=== PATIENT | female | born 1960 | race Caucasian/White ===

== ENCOUNTER 2023-04-08 15:14 | Outpatient (REF) | payer MEDICARE, MEDICAID, SELFPAY ==
[2023-04-08 16:13] LABS: SARS-CoV-2 Ag POSITIVE (NEGATIVE)
== END 2023-04-08 15:15 | disposition home or self-care (01) ==
LOC: LAB 15:14
PROVIDERS: PCP Family Medicine; Visit Provider Family Medicine
DX: R05.1 Acute cough (principal); J02.9 Acute pharyngitis, unspecified; J98.8 Other specified respiratory disorders
CPT/HCPCS: 87811

== ENCOUNTER 2023-09-10 13:17 | Inpatient (IN) | payer MEDICARE, MEDICAID, SELFPAY ==
[2023-09-10] VITALS (35 sets, daily range): BP systolic 99–145; BP diastolic 65–96; PULSE 94–126; TEMP 34.6–36.8; O2SAT 77–98; BMI 27.4
--- NOTE | 2023-09-10 13:28 | CT_ITS ---
The [address] [address] Patient Name: JENNIFER BURGOS MRN: [id number] date: 1960 Sex: F Assigned Patient Location: ER Current Patient Location: Accession/Order Number: [id number] Exam Date: 09/10/2023 14:44 Report Date: 09/10/2023 15:18 At the request of: FAY DUVAL Procedure: CT cervical spine wo con EXAM: CT cervical spine wo con CLINICAL INDICATION: fall COMPARISON: Cervical spine radiographs 07/22/2013. TECHNIQUE: Axial CT images of the cervical spine were obtained without intravenous contrast. Coronal and sagittal reformatted images were also reviewed. Dose reduction techniques were achieved by using automated exposure control and/or adjustment of mA and/or kV according to patient size and/or use of iterative reconstruction technique. FINDINGS: Osseous Mineralization: Mild osseous demineralization limits evaluation of fine osseous detail. Trauma: No fracture, traumatic malalignment, facet dislocation, or discrete epidural hemorrhage. Alignment: Normal craniocervical and cervicothoracic junctions. Straightening of the physiologic cervical lordosis likely relates at least in part to patient positioning. Vertebral Body Heights: Maintained. Spondylotic Changes: Multilevel spondylotic changes include varying degrees of intervertebral disc height loss, osteophytic ridging, endplate sclerosis, and facet/uncovertebral joint hypertrophy. Soft Tissues: Normal. Other: Clear visualized lung apices. Airway is patent. CT/CT cervical spine wo con IMPRESSION: 1. No cervical spine fracture or traumatic malalignment. 2. Multilevel spondylotic changes. Electronically authenticated by: ELVA YATES Date: 09/10/2023 15:18
--- NOTE | 2023-09-10 13:28 | CT_ITS ---
The [address] [address] Patient Name: JENNIFER BURGOS MRN: [id number] date: 1960 Sex: F Assigned Patient Location: ER Current Patient Location: ER Accession/Order Number: [id number] Exam Date: 09/10/2023 14:44 Report Date: 09/10/2023 15:18 At the request of: FAY DUVAL Procedure: CT head/brain wo con CT head/brain wo con, 09/10/2023 2:44 PM EDT INDICATION: Fall, weakness COMPARISON: There is no appropriate prior study for comparison. TECHNIQUE: Axial CT images of the brain from skull base to vertex, including portions of the face and sinuses, were obtained without contrast . Multiplanar reformatted images were generated and reviewed as needed. Dose reduction techniques were achieved by using automated exposure control and/or adjustment of mA and/or kV according to patient size and/or use of iterative reconstruction technique. FINDINGS: The cerebral sulci as well as ventricular system are appropriate for age. There is no intracranial mass, mass effect, midline shift, intra or extra-axial fluid collection or hemorrhage. Periventricular and centrum semiovale hypodensities are most likely consistent with microvascular ischemic changes. The visualized portions of orbits, mastoid air cells as well as paranasal sinuses are unremarkable. There is no suspicious osteolytic or osteoblastic lesion. CT/CT head/brain wo con IMPRESSION: No acute intracranial process is noted. Electronically authenticated by: LUANN MENDOZA Date: 09/10/2023 15:18
--- NOTE | 2023-09-10 13:28 | CT_ITS ---
[address] [address] Patient Name: JENNIFER BURGOS MRN: [id number] date: 1960 Sex: F Assigned Patient Location: ER Current Patient Location: ED.MAIN Accession/Order Number: [id number] Exam Date: 09/10/2023 14:44 Report Date: 09/10/2023 15:45 At the request of: FAY DUVAL Procedure: CT pelvis wo con EXAMINATION: CT pelvis wo con HISTORY: fall COMPARISON: No relevant comparison available. TECHNIQUE: Multi-planar CT images were created without IV contrast. Dose reduction techniques were achieved by using automated exposure control and/or adjustment of mA and/or kV according to patient size and/or use of iterative reconstruction technique. FINDINGS: BONES: No acute fracture or dislocation. Mild bilateral hip osteoarthropathy. Mild to moderate lumbar spine spondylosis SOFT TISSUES: Negative. No visible soft tissue swelling. EFFUSION: None visible. Bowel/mesentery: Moderate colonic diverticulosis without evidence of acute diverticulitis. Nonobstructive bowel gas pattern Bladder: Moderately distended Other: Hysterectomy. Moderate calcific atherosclerosis CT/CT pelvis wo con IMPRESSION: No acute fracture Electronically authenticated by: NINA ADAMS Date: 09/10/2023 15:45
--- NOTE | 2023-09-10 13:28 | ECG_ITS ---
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
--- NOTE | 2023-09-10 13:28 | XR_ITS ---
The [address] [address] Patient Name: JENNIFER BURGOS MRN: [id number] date: 1960 Sex: F Assigned Patient Location: ED.MAIN Current Patient Location: ER Accession/Order Number: [id number] Exam Date: 09/10/2023 14:44 Report Date: 09/10/2023 15:04 At the request of: FAY DUVAL Procedure: XR chest 1V EXAMINATION: XR chest 1V HISTORY: weakness COMPARISON: No relevant comparison available. TECHNIQUE: ap port FINDINGS: LUNGS: No significant pulmonary parenchymal abnormalities. VASCULATURE: No increased pulmonary vasculature. PLEURA: No pneumothorax, effusion, or pleural thickening. CARDIAC: No cardiomegaly or cardiac silhouette abnormality. MEDIASTINUM: No visible mass or adenopathy. BONES: No fracture or visible bone lesion. OTHER: Negative. XR/XR chest 1V IMPRESSION: No acute disease. Electronically authenticated by: NINA ADAMS Date: 09/10/2023 15:04
--- NOTE | 2023-09-10 13:32 | ED_ITS ---
HPI HPI - General Adult General Chief complaint: Fall Stated complaint: HIP PAIN Time Seen by Provider: 09/10/23 13:18 Source: patient Mode of arrival: ambulance History of Present Illness HPI narrative: Patient is a 63-year-old female with a history of seizure disorder who presents to the emergency department by ambulance from her home where she lives alone in [place]. Patient's daughter called 911 to bring her to the hospital today when she was found down on the bathroom floor. She has been laying there for approximately 17 hours. She reports pain in her hips and is noted to have abrasions to the knees and feet where it appears she may have tried to crawl. Patient is alert and oriented to person and place. She is disoriented to time and repeats herself multiple times during the interview. She is confused. She is aware of her primary care provider and her neurologist, she does not know her home medications but does not think she takes a blood thinner. She denies any recent illness. Related Data Home Medications ?Medication ?Instructions ?Recorded ?Confirmed alprazolam 1 mg tablet 1 mg PO BID 09/10/23 09/10/23 amitriptyline 150 mg tablet 150 mg PO DAILY 09/10/23 09/10/23 baclofen 20 mg tablet 20 mg PO TID 09/10/23 09/10/23 dapagliflozin propanediol 10 mg 10 mg PO DAILY 09/10/23 09/10/23 tablet estradiol 1 mg/gram (0.1 %) 1 mg transdermal DAILY 09/10/23 09/10/23 transdermal gel packet glipizide 10 mg tablet 10 mg PO BID 09/10/23 09/10/23 losartan 100 mg tablet 100 mg PO DAILY 09/10/23 09/10/23 metformin 1,000 mg tablet 1,000 mg PO BID 09/10/23 09/10/23 metoprolol succinate 50 mg 50 mg PO BID 09/10/23 09/10/23 tablet,extended release 24 hr nabumetone 500 mg tablet 500 mg PO BID 09/10/23 09/10/23 rosuvastatin 10 mg tablet 10 mg PO DAILY 09/10/23 09/10/23 spironolactone 25 mg tablet 25 mg PO BID 09/10/23 09/10/23 tizanidine 4 mg tablet 4 mg PO TID PRN muscle spasticity 09/10/23 09/10/23 topiramate 100 mg tablet (Topamax) 100 mg PO BID 09/10/23 09/10/23 Allergies Allergy/AdvReac Type Severity Reaction Status Date / Time adhesive tape Allergy Severe Verified 09/10/23 16:25 aspirin Allergy Severe Verified 09/10/23 16:25 carbamazepine [From Tegretol] Allergy Severe Verified 09/10/23 16:27 diphenhydramine Allergy Severe Verified 09/10/23 16:25 [From Benadryl] ibuprofen Allergy Severe Verified 09/10/23 16:25 lamotrigine [From Lamictal] Allergy Severe Verified 09/10/23 16:25 latex Allergy Severe Verified 09/10/23 16:27 levetiracetam [From Keppra] Allergy Severe Verified 09/10/23 16:25 Penicillins Allergy Severe Verified 09/10/23 16:27 Sulfa (Sulfonamide Allergy Severe Verified 09/10/23 16:27 Antibiotics) Opioid HPI Opioid Management Most Recent Opioid Data: Last Pain Scale 6 09/10/23 13:58 Ur Phencyclidine Scrn Negative (NEGATIVE) 09/10/23 15:50 Review of Systems ROS Constitutional Denies: fever or chills Ears, nose, mouth, and throat Denies: throat pain or nasal congestion Cardiovascular Denies: chest pain Respiratory Denies: shortness of breath or cough Gastrointestinal Denies: nausea or vomiting Musculoskeletal Reports: extremity pain and joint pain; Denies: back pain or neck pain Integumentary/Breast Denies: rash Neurological Denies: headache Hematologic/Lymphatic Denies: easy bruising or easy bleeding Exam Narrative Exam Narrative: Gen.: Awake, alert, in no distress Head: Normocephalic, atraumatic, No evidence of head injury ENT: Moist mucous membranes, Cervical spine nontender Respiratory: No respiratory distress, lungs clear bilaterally Cardio: Regular rate and rhythm Gastrointestinal: Abdomen is soft, nondistended and nontender to palpation Extremities: Extremities are cold to the touch, limited hip flexion bilaterally with pelvis stable. Bilateral hip tenderness to palpation with no internal or external rotation or shortening. Abrasions with no swelling or bruising noted to the bilateral knees as well as the dorsums of the feet. No bony tenderness of the knees or feet. No bony tenderness of the bilateral upper extremities with 2+ radial pulses bilaterally. Psych: Normal mood and affect Neuro: No focal neuro deficit Skin: Warm, dry, intact Constitutional Vital Signs, click to edit/add: Last Vital Signs Temp 97.9 F 09/10/23 16:47 Pulse 111 H 09/10/23 16:20 Resp 22 H 09/10/23 16:20 BP 121/85 09/10/23 16:40 Pulse Ox 96 09/10/23 16:20 O2 Del Method Room Air 09/10/23 13:22 Course Vital Signs Vital signs: Vital Signs Temperature 94.3 F L 09/10/23 13:22 Pulse Rate 96 H 09/10/23 13:22 Respiratory Rate 18 09/10/23 13:22 Blood Pressure 124/65 09/10/23 13:22 Pulse Oximetry 96 09/10/23 13:22 Oxygen Delivery Method Room Air 09/10/23 13:22 Temperature 97.9 F 09/10/23 16:47 Pulse Rate 111 H 09/10/23 16:20 Respiratory Rate 22 H 09/10/23 16:20 Blood Pressure 121/85 09/10/23 16:40 Pulse Oximetry 96 09/10/23 16:20 Oxygen Delivery Method Room Air 09/10/23 13:22 Medical Decision Making MDM Narrative Medical decision making narrative: Patient noted to be hypothermic on arrival to the ER with a rectal temperature of 94.3. She was given warm IV fluids, 2 L of normal saline with a bear hugger applied. Her temperature did improve in the ER and vital signs are otherwise stable. CT of the head, CT of the C-spine and CT of the pelvis are unremarkable and chest x-ray shows no evidence of acute cardiopulmonary changes. She has an unremarkable EKG with lab studies showing rhabdomyolysis, globally elevated LFTs. Unknown as to why the patient was unable to get up off the floor for over 12 hours and was found down by her daughter. Possible seizure activity versus polypharmacy as she is prescribed multiple skeletal muscle relaxants and neuro meds with Xanax. Patient had improvement of her mental status in the ER as her temperature improved, she is awake and alert on reevaluation. Stable at time of admission to ICU to hospitalist service. Medical Records Medical records reviewed: Yes I reviewed the patient's medical records Lab Data Lab results reviewed: Yes I reviewed the patient's lab results Labs: Lab Results 0509/10/23 09/10/23 Range/Units 13:49 14:15 14:16 WBC 13.5 H (4.0-11.0) 10^3/uL RBC 4.60 (4.20-5.40) 10^6/uL Hgb 13.5 (12.0-16.0) g/dL Hct 41.7 (36.0-48.0) % MCV 90.7 (81.0-99.0) fL MCH 29.3 (26.7-34.0) pg MCHC 32.4 (29.9-35.2) g/dL RDW 13.2 (11.0-15.0) % Plt Count 173 (150-450) 10^3/uL MPV 10.8 (9.5-13.5) fL Neut % (Auto) 89.3 H (43.0-75.0) % Lymph % (Auto) 5.2 L (20.5-60.0) % Dunn % (Auto) 4.9 (1.7-12.0) % Eos % (Auto) 0.1 L (0.9-7.0) % Baso % (Auto) 0.1 L (0.2-2.0) % Neut # (Auto) 12.0 H (1.4-6.5) 10^3/uL Lymph # (Auto) 0.7 L (1.2-3.8) 10^3/uL Dunn # (Auto) 0.7 (0.3-0.8) 10^3/uL Eos # (Auto) 0.0 (0.0-0.7) 10^3/uL Baso # (Auto) 0.0 (0.0-0.1) 10^3/uL Abs Immat Gran (auto) 0.05 H (0.00-0.03) 10^3/uL Imm/Tot Granulo (auto) 0.4 (0.0-0.5) % PT 11.1 (9.0-11.6) sec INR 1.05 VBG pH 7.321 L (7.330-7.430) VBG pCO2 31.3 L (40.0-52.0) mmHg Sodium 133 L (136-145) mmol/L Potassium 5.0 (3.5-5.1) mmol/L Chloride 100 (98-107) mmol/L Carbon Dioxide 17.8 L (21.0-32.0) mmol/L Anion Gap 20.2 BUN 49.0 H (7.0-18.0) mg/dL Creatinine 1.56 H (0.55-1.02) mg/dL Est GFR ( Amer) 41 L (>=60) Est GFR (Non-Af Amer) 34 L (>=60) BUN/Creatinine Ratio 31.4 Glucose 227 H (74-106) mg/dL Lactate 1.0 (0.4-2.0) mmol/L Calcium 9.1 (8.5-10.1) mg/dL Magnesium 2.9 H (1.8-2.4) mg/dL Total Bilirubin 0.5 (0.2-1.0) mg/dL AST 227 H (15-37) U/L ALT 119 H (14-59) U/L Alkaline Phosphatase 270 H (46-116) U/L Ammonia <10 L (11-32) umol/L Total Creatine Kinase 06089 H* (26-192) U/L Troponin I High Sens 8.6 (4.0-51.3) pg/mL NT-Pro-B Natriuret Pep 361.0 (<=900.0) pg/mL Total Protein 7.7 (6.4-8.2) g/dL Albumin 3.3 L (3.4-5.0) g/dL Globulin 4.4 g/dL Albumin/Globulin Ratio 0.8 Procalcitonin 2.01 H (0.00-0.50) ng/mL TSH 0.887 (0.358-3.740) uIU/mL Urine Color (YELLOW) Urine Clarity (CLEAR) Urine pH (5.0-9.0) Ur Specific [place] (1.005-1.025) Urine Protein (NEG/TRACE) mg/dL Urine Glucose (UA) (NEGATIVE) mg/dL Urine Ketones (NEGATIVE) mg/dL Urine Occult Blood (NEGATIVE) Urine Nitrite (NEGATIVE) Urine Bilirubin (NEGATIVE) Urine Urobilinogen (0.2-1.0) EU/dL Ur Leukocyte Esterase (NEGATIVE) Urine RBC (0-2) #/HPF Urine WBC (NONE SEEN) #/HPF Ur Squamous Epith Cells (NONE/RARE) #/LPF Urine Crystals (None Seen) #/HPF Urine Bacteria (NONE SEEN) #/HPF Urine Casts (NONE SEEN) #/LPF Urine Mucus (NONE SEEN) Urine Opiates Screen (NEGATIVE) Ur Buprenorphine Scrn (NEGATIVE) Ur Oxycodone Screen (NEGATIVE) Urine Methadone Screen (NEGATIVE) Ur Barbiturates Screen (NEGATIVE) U Tricyclic Antidepress (NEGATIVE) Ur Phencyclidine Scrn (NEGATIVE) Ur Amphetamines Screen (NEGATIVE) U Methamphetamines Scrn (NEGATIVE) U Benzodiazepines Scrn (NEGATIVE) Urine Cocaine Screen (NEGATIVE) U Cannabinoids Screen (NEGATIVE) Ethanol Quant <3 mg/dL POC Glucose 219 H (74-106) mg/dL 09/10/23 Range/Units 15:50 WBC (4.0-11.0) 10^3/uL RBC (4.20-5.40) 10^6/uL Hgb (12.0-16.0) g/dL Hct (36.0-48.0) % MCV (81.0-99.0) fL MCH (26.7-34.0) pg MCHC (29.9-35.2) g/dL RDW (11.0-15.0) % Plt Count (150-450) 10^3/uL MPV (9.5-13.5) fL Neut % (Auto) (43.0-75.0) % Lymph % (Auto) (20.5-60.0) % Dunn % (Auto) (1.7-12.0) % Eos % (Auto) (0.9-7.0) % Baso % (Auto) (0.2-2.0) % Neut # (Auto) (1.4-6.5) 10^3/uL Lymph # (Auto) (1.2-3.8) 10^3/uL Dunn # (Auto) (0.3-0.8) 10^3/uL Eos # (Auto) (0.0-0.7) 10^3/uL Baso # (Auto) (0.0-0.1) 10^3/uL Abs Immat Gran (auto) (0.00-0.03) 10^3/uL Imm/Tot Granulo (auto) (0.0-0.5) % PT (9.0-11.6) sec INR VBG pH (7.330-7.430) VBG pCO2 (40.0-52.0) mmHg Sodium (136-145) mmol/L Potassium (3.5-5.1) mmol/L Chloride (98-107) mmol/L Carbon Dioxide (21.0-32.0) mmol/L Anion Gap BUN (7.0-18.0) mg/dL Creatinine (0.55-1.02) mg/dL Est GFR ( Amer) (>=60) Est GFR (Non-Af Amer) (>=60) BUN/Creatinine Ratio Glucose (74-106) mg/dL Lactate (0.4-2.0) mmol/L Calcium (8.5-10.1) mg/dL Magnesium (1.8-2.4) mg/dL Total Bilirubin (0.2-1.0) mg/dL AST (15-37) U/L ALT (14-59) U/L Alkaline Phosphatase (46-116) U/L Ammonia (11-32) umol/L Total Creatine Kinase (26-192) U/L Troponin I High Sens (4.0-51.3) pg/mL NT-Pro-B Natriuret Pep (<=900.0) pg/mL Total Protein (6.4-8.2) g/dL Albumin (3.4-5.0) g/dL Globulin g/dL Albumin/Globulin Ratio Procalcitonin (0.00-0.50) ng/mL TSH (0.358-3.740) uIU/mL Urine Color Yellow (YELLOW) Urine Clarity Clear (CLEAR) Urine pH 5.5 (5.0-9.0) Ur Specific [place] 1.020 (1.005-1.025) Urine Protein 30 A (NEG/TRACE) mg/dL Urine Glucose (UA) >=1000 A (NEGATIVE) mg/dL Urine Ketones Trace A (NEGATIVE) mg/dL Urine Occult Blood Large A (NEGATIVE) Urine Nitrite Negative (NEGATIVE) Urine Bilirubin Negative (NEGATIVE) Urine Urobilinogen 0.2 (0.2-1.0) EU/dL Ur Leukocyte Esterase Negative (NEGATIVE) Urine RBC 5-10 A (0-2) #/HPF Urine WBC 0-2 A (NONE SEEN) #/HPF Ur Squamous Epith Cells None seen (NONE/RARE) #/LPF Urine Crystals None seen (None Seen) #/HPF Urine Bacteria Trace A (NONE SEEN) #/HPF Urine Casts None seen (NONE SEEN) #/LPF Urine Mucus None seen (NONE SEEN) Urine Opiates Screen Negative (NEGATIVE) Ur Buprenorphine Scrn Negative (NEGATIVE) Ur Oxycodone Screen Negative (NEGATIVE) Urine Methadone Screen Negative (NEGATIVE) Ur Barbiturates Screen Negative (NEGATIVE) U Tricyclic Antidepress Positive A (NEGATIVE) Ur Phencyclidine Scrn Negative (NEGATIVE) Ur Amphetamines Screen Negative (NEGATIVE) U Methamphetamines Scrn Negative (NEGATIVE) U Benzodiazepines Scrn Positive A (NEGATIVE) Urine Cocaine Screen Negative (NEGATIVE) U Cannabinoids Screen Negative (NEGATIVE) Ethanol Quant mg/dL POC Glucose (74-106) mg/dL Imaging Data CT scan - head: Attestation: I have reviewed the pertinent imaging results. Radiologist's impression: ITS Impressions Cervical Spine CT 09/10/23 13:28 IMPRESSION: 1. No cervical spine fracture or traumatic malalignment. 2. Multilevel spondylotic changes. Electronically authenticated by: ELVA YATES Date: 09/10/2023 15:18 Chest X-Ray 09/10/23 13:28 IMPRESSION: No acute disease. Electronically authenticated by: NINA ADAMS Date: 09/10/2023 15:[address] 09/10/23 13:28 IMPRESSION: No acute intracranial process is noted. Electronically authenticated by: LUANN MENDOZA Date: 09/10/2023 15:[address] 09/10/23 13:28 IMPRESSION: No acute fracture Electronically authenticated by: NINA ADAMS Date: 09/10/2023 15:45 ECG Data Attestation: I personally reviewed and interpreted this ECG as follows: (Normal sinus rhythm at a rate of 95, no acute ST elevation or ectopy. EKG reviewed by attending physician) Discharge Plan Discharge Chief Complaint: Fall Patient Disposition: Admitted As Inpatient Time of Disposition Decision: 16:54 Prescriptions / Home Meds: No Action alprazolam 1 mg tablet 1 mg PO BID amitriptyline 150 mg tablet 150 mg PO DAILY baclofen 20 mg tablet 20 mg PO TID dapagliflozin propanediol 10 mg tablet 10 mg PO DAILY estradiol 1 mg/gram (0.1 %) gel in packet 1 mg transdermal DAILY glipizide 10 mg tablet 10 mg PO BID losartan 100 mg tablet 100 mg PO DAILY metformin 1,000 mg tablet 1,000 mg PO BID metoprolol succinate 50 mg tablet extended release 24 hr 50 mg PO BID nabumetone 500 mg tablet 500 mg PO BID rosuvastatin 10 mg tablet 10 mg PO DAILY spironolactone 25 mg tablet 25 mg PO BID tizanidine 4 mg tablet 4 mg PO TID PRN (Reason: muscle spasticity) topiramate [Topamax] 100 mg tablet 100 mg PO BID Print Language: Mozambican Referrals: ERIBERTO ROYAL [Primary Care Provider] - 1 week
[2023-09-10] MEDS: 0.9 % SODIUM CHLORIDE 1,000 ML 999 ML IV (13:41)
[2023-09-10 14:31] LABS: Glucometer 219 mg/dL (74-106)
[2023-09-10 14:38] LABS: PCO2 VBG 31.3 mmHg (40.0-52.0); pH VBG 7.321 (7.330-7.430)
[2023-09-10 14:41] LABS: Basophils Percent Auto 0.1 % (0.2-2.0); Eosinophils Percent Auto 0.1 % (0.9-7.0); Hematocrit 41.7 % (36.0-48.0); Hemoglobin 13.5 g/dL (12.0-16.0); Immature Granulocytes Abs Auto 0.05 10^3/uL (0.00-0.03); Immature Granulocytes Pct Auto 0.4 % (0.0-0.5); Lymphocytes Absolute Auto 0.7 10^3/uL (1.2-3.8); Lymphocytes Percent Auto 5.2 % (20.5-60.0); Mean Corpuscular HGB Conc 32.4 g/dL (29.9-35.2); Mean Corpuscular Hemoglobin 29.3 pg (26.7-34.0); Mean Corpuscular Volume 90.7 fL (81.0-99.0); Mean Platelet Volume 10.8 fL (9.5-13.5); Monocytes Absolute Auto 0.7 10^3/uL (0.3-0.8); Monocytes Percent Auto 4.9 % (1.7-12.0); Neutrophils Percent Auto 89.3 % (43.0-75.0); Platelet Count 173 10^3/uL (150-450); Red Cell Distribution Width 13.2 % (11.0-15.0); White Blood Count 13.5 10^3/uL (4.0-11.0)
[2023-09-10 14:51] LABS: Ammonia <10 umol/L (11-32)
[2023-09-10 14:54] LABS: INR 1.05; Prothrombin Time 11.1 sec (9.0-11.6)
[2023-09-10 14:58] LABS: Alanine Aminotransferase 119 U/L (14-59); Albumin Globulin Ratio 0.8; Albumin Level 3.3 g/dL (3.4-5.0); Alkaline Phosphatase 270 U/L (46-116); Anion Gap 20.2; Aspartate Amino Transferase 227 U/L (15-37); BUN Creatinine Ratio 31.4; Bilirubin Total 0.5 mg/dL (0.2-1.0); Calcium 9.1 mg/dL (8.5-10.1); Carbon Dioxide 17.8 mmol/L (21.0-32.0); Chloride 100 mmol/L (98-107); Estimated GFR (African America 41 (>=60); Estimated GFR (Non-African Ame 34 (>=60); Globulin 4.4 g/dL; Glucose 227 mg/dL (74-106); Sodium 133 mmol/L (136-145); Total Protein 7.7 g/dL (6.4-8.2)
[2023-09-10 15:07] LABS: Magnesium 2.9 mg/dL (1.8-2.4); Thyroid Stimulating Hormone 0.887 uIU/mL (0.358-3.740); Troponin I High Sensitivity 8.6 pg/mL (4.0-51.3)
[2023-09-10 15:11] LABS: Ethanol <3 mg/dL
[2023-09-10 15:14] LABS: Creatine Kinase 11373 U/L (26-192)
[2023-09-10 15:22] LABS: PROCALCITONIN 2.01 ng/mL (0.00-0.50)
[2023-09-10] MEDS: 0.9 % SODIUM CHLORIDE 1,000 ML 1000 ML IV (15:35)
[2023-09-10 16:13] LABS: Bilirubin Urine NEGATIVE (NEGATIVE); Blood Urine LARGE (NEGATIVE); Clarity Urine CLEAR (CLEAR); Color Urine YELLOW (YELLOW); Glucose Urine UA >=1000 mg/dL (NEGATIVE); Ketones Urine TRACE mg/dL (NEGATIVE); Leukocyte Esterase Urine NEGATIVE (NEGATIVE); Nitrite Urine NEGATIVE (NEGATIVE); Protein Urine 30 mg/dL (NEG/TRACE); Urobilinogen Urine 0.2 EU/dL (0.2-1.0); pH Urine 5.5 (5.0-9.0)
[2023-09-10 16:32] LABS: Urine Microscopic Indicated YES
[2023-09-10 16:33] LABS: Amphetamine Screen Urine NEGATIVE (NEGATIVE); Barbiturates Screen Urine NEGATIVE (NEGATIVE); Benzodiazepines Screen Urine POSITIVE (NEGATIVE); Buprenorphine Screen Urine NEGATIVE (NEGATIVE); Cannabinoid Screen Urine NEGATIVE (NEGATIVE); Cocaine Screen Urine NEGATIVE (NEGATIVE); Methadone Screen Urine NEGATIVE (NEGATIVE); Methamphetamines Screen Urine NEGATIVE (NEGATIVE); Opiate Screen Urine NEGATIVE (NEGATIVE); Oxycodone Screen Urine NEGATIVE (NEGATIVE); Phencyclidine Screen Urine NEGATIVE (NEGATIVE); Tricyclic Antidepressant Urine POSITIVE (NEGATIVE)
[2023-09-10 16:36] LABS: Bacteria Urine TRACE #/HPF (NONE SEEN); Cast Seen? NONE SEEN #/LPF (NONE SEEN); Crystals Seen? None Seen #/HPF (None Seen); Mucus Urine NONE SEEN (NONE SEEN); Squamous Epithelial Cell Urine NONE SEEN #/LPF (NONE/RARE); WBC Urine 0-2 #/HPF (NONE SEEN)
[2023-09-10 17:46] LABS: Acetone SMALL (NEGATIVE)
--- OUTSIDE RECORDS SUMMARY | 2023-09-10 17:54 | XMS_ITS ---
Patient Summarization (C-CDA 2.1 CCD) Created on: September 10, 2023 Fanta HENDERSONELLA Fanta~ABUREY : 1960 Sex: Female Author Organization Sample organization Care Team Providers Care Lean Sensei Name Role Phone DERICK ROYAL Admitting Unavailable DERICK ROYAL Attending Unavailable DERICK ROYAL Unavailable CHRISTOPHER JACKSON Admitting Unavailable CHRISTOPHER JACKSON Attending Unavailable Derick Royal MD Unavailable Derick Royal MD Primary Care Provider Derick Royal MD Primary Care Provider Lane Roberts DO Unavailable [phone] Keven Quick MD Unavailable [phone] DERICK ROYAL Primary Care Unavailab STEPHANIE Samson Attending Unavailable DERICK ROYAL Primary Care Unavailab STEPHANIE Samson Attending Unavailable DERICK ROYAL Primary Care Unavailab FABIAN Rondon S Referring Unavailable RHONDA URRUTIA Attending Unavailable STEPHANIE MAE Referring Unavailable DERICK ROYAL Primary Care Unavailab FABIAN Rondon S Attending Unavailable DERICK ROYAL Primary Care Unavailab STEPHANIE Samson Attending Unavailable DERICK ROYAL Attending Unavailable DERICK ROYAL Attending Unavailable KEVEN QUICK Attending Unavailable TR QUICKNDCONSTANCE Valero Referring Unavailable KEVEN QUICK Attending Unavailable DERICK ROYAL Attending Unavailable DERICK ROYAL Attending Unavailable DERICK ROYAL Attending Unavailable KEVEN QUICK W Referring Unavailable HEMEDERICK WONG Attending Unavailable KEVEN QUICK W Attending Unavailable DERICK ROYAL Attending Unavailable DERICK ROYAL Attending Unavailable DERICK ROYAL Referring Unavailable Allergies Allergy Classification Reported Allergen(s) Allergy Type Date of Onset Reaction(s) Facility (4 sources) Acetaminophen / HYDROcodone Drug Allergy 07-26-19 16 [facility] (5 sources) Aluminum aspirin; Translations: [ASPIRIN] Drug Allergy 02-19-20 13 Swelling [facility] Work Phone: (4 sources) buPROPion Drug Allergy 03-31-20 14 Rash [facility] (5 sources) Carbamazepine; Translations: [CARBAMAZEPINE] Allergy to substance 02-19-20 13 [facility] (12 sources) diphenhydrAMINE Drug Allergy 02-19-20 13 Unknown [facility] (4 sources) gabapentin Drug Allergy 08-28-19 23 [facility] (4 sources) Honey bee venom Propensity to adverse reactions 10-20-[address] [facility] (13 sources) Ibuprofen; Translations: [IBUPROFEN] Drug Allergy 02-19-20 13 Swelling, Unknown [facility] (4 sources) Imipramine Drug Allergy 08-28-[address] [facility] (5 sources) Lamotrigine; Translations: [LAMOTRIGINE] Allergy to substance 02-19-[address] [facility] (5 sources) Latex; Translations: [LATEX] Allergy to substance 02-19-[address] [facility] (5 sources) Levetiracetam; Translations: [LEVETIRACETAM] Allergy to substance 02-19-20 13 [facility] (4 sources) meloxicam Drug Allergy 08-28-[address] [facility] (4 sources) methylPREDNISolone Drug Allergy 08-28-[address] [facility] (4 sources) PARoxetine Drug Allergy 08-28-[address] [facility] (4 sources) Penicillins Drug Allergy 08-28-[address] [facility] (4 sources) Pregabalin Allergy to substance 08-28-19 23 [facility] (4 sources) Sulfanilamide Allergy to substance 08-28-[address] [facility] (4 sources) SUMAtriptan Drug Allergy 08-28-19 [facility] (4 sources) traMADol Drug Allergy 08-28-[address] [facility] (4 sources) Wound Dressing Adhesive Drug Allergy 08-28-[address] [facility] (9 sources) Adhesive Tape; Translations: [ADHESIVE TAPE (ROSINS)] Allergy to substance 02-19-20 13 Unknown [facility] (8 sources) Aspirin Drug Allergy 02-19-20 13 Unknown [facility] (8 sources) carBAMazepine Drug Allergy 02-19-20 13 Unknown [facility] (8 sources) lamoTRIgine Drug Allergy 02-19-20 13 Unknown [facility] (8 sources) Latex Drug Allergy 02-19-20 13 Unknown [facility] (8 sources) levETIRAcetam Drug Allergy 02-19-20 13 Unknown [facility] (9 sources) Sulfonamides (Antibiotic); Translations: [SULFA (SULFONAMIDE ANTIBIOTICS)] Drug Allergy 02-19-20 13 Unknown [facility] (9 sources) SUMAtriptan; Translations: [SUMATRIPTAN SUCCINATE] Drug Allergy 02-19-20 13 Unknown [facility] (9 sources) traMADol; Translations: [TRAMADOL HCL] Drug Allergy 02-19-20 13 Unknown [facility] (9 sources) Methylprednisone; Translations: [METHYLPREDNISONE] Drug Allergy 02-19-20 13 Unknown [facility] (1 source) diphenhydrAMINE; Translations: [DIPHENHYDRAMINE HCL] Drug Allergy 02-19-20 13 [facility] Repository Encounters Encounter Date Encounter Type Care Provider Facility Start: 09-04-2023 End: 09-05-2023 ambulatory DERICK ROYAL Not Available Start: 08-20-2023 End: 08-20-2023 ambulatory DERICK ROYAL Not Available Start: 08-04-2023 End: 08-04-2023 ambulatory DERICK ROYAL Not Available Start: 08-03-2023 End: 08-03-2023 ambulatory KEVEN QUICK Not Available Start: 07-31-2023 End: 07-31-2023 ambulatory DERICK ROYAL Facility:[facility] Start: 07-31-2023 End: 07-31-2023 Patient encounter procedure Stephanie Mae MD Work Phone: Pain Management Comment on above: Seizure disorder (HC C) (Primary Dx); Posterior neck pain; Pain of occiput; Chronic daily headache; Fibromyalgia Start: 07-28-2023 End: 07-28-2023 ambulatory DERICK ROYAL Not Available Start: 07-15-2023 End: 07-15-2023 ambulatory DERICK ROYAL Facility:[facility] Start: 07-15-2023 End: 07-15-2023 Patient encounter procedure Rhonda Urrutia MD Work Phone: Neurology [facility] Comment on above: Bilateral hand numbn ess (Primary Dx); Abnormal MRI, cervical spine; Paroxysmal supraventricular tachycardia (HCC) Start: 07-15-2023 Telephone encounter Rhonda Urrutia MD Work Phone: [facility] Comment on above: EMG Report Start: 07-14-2023 Telephone encounter Rhonda Urrutia MD Work Phone: Neurology [facility] Start: 06-29-2023 Telephone encounter Fabian sanchez PICK UP AND DELIVERY DRIVER.ADVANCED PRACTICE REGISTERED NURSE Work Phone: [facility] Comment on above: Results Start: 06-22-2023 End: 06-22-2023 ambulatory Fabian Tovar PICK UP AND DELIVERY DRIVER.ADVANCED PRACTICE REGISTERED NURSE Work Phone: [facility] Comment on above: Extradural cyst of saravanan white (Primary Dx); Bilateral hand numbness Start: 06-22-2023 End: 06-22-2023 Telemedicine consultation with patient Fabian Tovar PICK UP AND DELIVERY DRIVER.ADVANCED PRACTICE REGISTERED NURSE Work Phone: [facility] Start: 06-08-2023 Chart abstracting Unk Pcp (Hist) Jose Martin chilel Start: 06-01-2023 End: 06-01-2023 ambulatory DERICK ROYAL Facility:[facility] Start: 06-01-2023 End: 06-01-2023 Patient encounter procedure Stephanie Mae MD Work Phone: Pain Management Comment on above: Right arm numbness ( Primary Dx); Left arm numbness; Tarlov cyst Start: 05-20-2023 Bamboo flowsheet Derick wong MD Work Phone: [facility] Start: 05-20-2023 Bamboo flowsheet Derick wong MD Work Phone: [facility] Start: 05-20-2023 End: 05-20-2023 ambulatory DERICK ROYAL Not Available Start: 05-20-2023 End: 05-20-2023 Office outpatient visit 25 minutes Derick Royal MD Work Phone: [facility] Comment on above: Benign essential HTN (CMS/HCC); Type 2 diabetes mellitus with hyperglycemia, without long-term current use of insulin (CMS/HCC); Mixed dyslipidemia (CMS/HCC); Polypharmacy; Cigarette smoker Start: 05-19-2023 Chart abstracting Derick ramon MD Work Phone: [facility] Start: 05-04-2023 End: 05-04-2023 ambulatory KEVEN QUICK Not Available Start: 04-27-2023 End: 04-27-2023 ambulatory DERICK ROYAL Facility:[facility] Start: 04-23-2023 End: 04-23-2023 ambulatory DERICK ROYAL Not Available Start: 04-08-2023 End: 04-08-2023 ambulatory DERICK ROYAL Not Available Start: 03-20-2023 End: 03-21-2023 ambulatory KEVEN QUICK Not Available Start: 02-26-2023 End: 02-26-2023 ambulatory KEVEN QUICK Not Available Start: 02-24-2023 End: 02-24-2023 ambulatory DERICK ROYAL Not Available Start: 09-21-2018 Patient encounter procedure CHRISTOPHER LYLE Facility:[facility] Start: 03-29-2018 End: 03-30-2018 Patient encounter procedure DERICK ROYAL Facility:[facility] Medications Current Medications Medication Drug Class(es) Dates Sig (Normalized) Sig (Original) ALPRAZolam 1 mg oral tablet (12 sources) Benzodiazepine Start: 05-04-2023 End: 06-03-2023 ALPRAZolam (Xanax) 1 MG tablet Indications: Generalized anxiety disorder (CMS/HCC) , Panic disorder (CMS/HCC) Take 1 tablet (1 mg) by mouth See administration instructions 1 in AM, 1 at noon, 2 at bedtime 120 tablet 1 05/04/2023 06/03/2023 Active ALPRAZolam (XANA X) 2 mg tablet Take 2 mg by mouth. 1 tab po QID plus 1 po PRN 0 Active Comment on above: Take 2 mg by mouth. 1 tab po QID plus 1 po PRN [id number] 0.3 ml EPINEPHrine 1 mg/ml auto-injector (4 sources) alpha-Adrenergic Agonist, beta-Adrenergic Agonist, Catecholamine EPINEPHrine (EpiP en 2-Axel) 0.3 MG/0.3ML injection syringe Inject 1 Syringe as directed 1 (one) time. 0 Active estradiol 0.1 mg/ml vaginal cream (4 sources) Estrogen Start: 4 estradiol (Estrace) 0.1 MG/GM vaginal cream Indications: Atrophic vaginitis 1 gram Vaginal Twice per week for 90 days 42.5 g 1 04/15/2023 Active glipiZIDE 5 mg oral tablet (2 sources) Sulfonylurea Start: 4 End: 4 take 1 tablet by mouth in the morning glipiZIDE (Glucotrol) 5 MG tablet Indications: Type 2 diabetes mellitus with hyperglycemia, without long-term current use of insulin (CMS/HCC) Take 1 tablet (5 mg) by mouth in the morning and 1 tablet (5 mg) in the evening. Take before meals. 180 tablet 0 05/20/2023 08/18/2023 Active 24 hr metoprolol succinate 50 mg extended release oral tablet (12 sources) beta-Adrenergic Garett Start: 4 End: 4 take 1.5 tablets by mouth once daily metoprolol succinate XL (Toprol-XL) 50 MG 24 hr tablet Indications: Benign essential HTN (CMS/HCC) Take 1.5 tablets (75 mg) by mouth 1 (one) time each day at the same time 135 tablet 0 04/15/2023 07/14/2023 Active Start: 02-11-2023 metoprolol suc cinate ER (TOPROL XL) 50 mg 24 hr tablet nabumetone 500 mg oral tablet (4 sources) Nonsteroidal Anti-inflammatory Drug take 1 tablet by mouth twice daily as needed nabumetone (Relafen) 500 MG tablet Take 500 mg by mouth 2 (two) times a day as needed. 0 Active OXYGEN-HELIUM IN (4 sources) Start: 07-13-19 OXYGEN-HELIUM IN Inhale 2 L at bedtime. 0 07/12/2021 Active tiZANidine 4 mg oral tablet (12 sources) Central alpha-2 Adrenergic Agonist Start: 01-29-20 23 take 1 tablet by mouth in the morning, then take 1 tablet by mouth in the evening, then take 1 tablet by mouth at bedtime tiZANidine (Zanaflex) 4 MG tablet Indications: Chronic pain syndrome , Burning mouth syndrome Take 1 tablet (4 mg) by mouth in the morning and 1 tablet (4 mg) in the evening and 1 tablet (4 mg) before bedtime. 270 tablet 0 01/28/2023 Active take 1 capsule by mo uth three times daily tiZANidine HCl (ZANAFLEX) 4 mg capsule T reji 4 mg by mouth three times daily. 0 Active Comment on above: Take 4 mg by mouth t hree times daily. topiramate 100 mg oral tablet (7 sources) Start: 06-22-2023 End: 06-21-2024 topiramate (TOPAMAX) 100 mg tablet Take 100 mg by mouth. 0 06/22/2023 06/21/2024 Active End: 06-22-2023 Topiramate (TOPAMAX) 50 mg t ablet Take 50 mg by mouth. 1 tab po qhs with 100mg tab 0 06/22/2023 Discontinued End: 06-22-2023 take 2 tablets by mouth once daily at bedtime topiramate (TOPAMAX) 100 mg tablet Take 100 mg by mouth. 2 tabs po qhs 0 06/22/2023 Discontinued Comment on above: Take 50 mg by mouth. 1 tab po qhs with 100mg tab Take 100 mg by mouth . 2 tabs po qhs Take 100 mg by mouth . Completed/Discontinued Medications Medication Drug Class(es) Dates Sig (Normalized) Sig (Original) amitriptyline hydrochloride 150 mg oral tablet (12 sources) Tricyclic Antidepressant Start: 11-10-2022 End: 11-10-2023 Amitriptyline HCl 150 mg tablet baclofen 20 mg oral tablet (12 sources) gamma-Aminobutyric Acid-ergic Agonist Start: 01-28-2023 baclofen 20 mg tablet busPIRone hydrochloride 30 mg oral tablet (7 sources) Start: 02-04-2023 End: 06-22-2023 busPIRone HCl 30 mg tablet take 0.3 tablet by mouth in the morning busPIRone (Buspar) 30 MG tablet Take 0.3 tablets by mouth in the morning and 0.3 tablets before bedtime. 0 Active busPIRone (Buspa r) 30 MG tablet Take 15 mg by mouth in the morning and 15 mg before bedtime. 0 Active dapagliflozin 10 mg oral tablet (12 sources) Sodium-Glucose Cotransporter 2 Inhibitor Start: 02-24-2023 End: 05-25-2023 FARXIGA 10 mg tablet diclofenac sodium 0.01 mg/mg topical gel (18 sources) Nonsteroidal Anti-inflammatory Drug diclofenac (VOLTAREN) 1 % topical gel Apply 4 g to affected area. 0 Active End: 07-15-2023 Diclofenac Sodium (VOLTAREN) 1 % gel Apply to affected area. Apply to affected area 2-3 times as needed daily 0 07/15/2023 Discontinued (Discontinued by Patient) Comment on above: Apply to affected ar ea. Apply to affected area 2-3 times as needed daily Apply 4 g to affecte d area. dilTIAZem hydrochloride 30 mg oral tablet (3 sources) Calcium Channel Garett End: 06-22-19 take 1 tablet by mouth once daily diltiazem (CARDIZEM) 30 mg tablet Take 30 mg by mouth once daily. 0 06/22/2023 Discontinued Comment on above: Take 30 mg by mouth once daily. fluconazole 100 mg oral tablet (4 sources) Azole Antifungal Start: 05-11-19 End: 05-21-19 take 1 tablet by mouth in the morning fluconazole (Diflucan) 100 MG tablet Indications: Candidiasis Take 1 tablet (100 mg) by mouth in the morning for 10 days. 10 tablet 0 05/11/2023 05/21/2023 120 actuat fluticasone propionate 0.22 mg/actuat metered dose inhaler (12 sources) Corticosteroid Start: 04-22-19 fluticasone (FLOVENT) 220 mcg/actuation inhaler Start: 04-15-2023 take 1 puff(s) by inhalation o nce fluticasone (Flovent HFA) 220 MCG/ACT inhaler Indications: Mild intermittent asthma without complication (CMS/HCC) Inhale 1 puff every 12 (twelve) hours 12 g 1 04/15/2023 Active 200 actuat levalbuterol 0.045 mg/actuat metered dose inhaler (12 sources) beta2-Adrenergic Agonist Start: 04-08-2023 levalbuterol tartrate HFA 45 mcg/actuation inhaler losartan potassium 100 mg oral tablet (12 sources) Angiotensin 2 Receptor Garett Start: 02-11-2023 End: 07-14-2023 losartan (COZAAR) 100 mg tablet metFORMIN hydrochloride 1000 mg oral tablet (12 sources) Biguanide Start: 04-15-2023 End: 07-14-2023 metFORMIN (GLUCOPHAGE) 1,000 mg tablet Take 1,000 mg by mouth. 0 04/15/2023 Active Comment on above: Take 1,000 mg by won th. metoclopramide 10 mg oral tablet (6 sources) Dopamine-2 Receptor Antagonist End: 07-15-2023 take 1 tablet by mouth every eight hours as needed metoclopramide HCl (REGLAN) 10 mg tablet Take 10 mg by mouth every 8 hours as needed. 0 07/15/2023 Discontinued (Discontinued by Patient) Comment on above: Take 10 mg by mouth every 8 hours as needed. milnacipran hydrochloride 50 mg oral tablet (3 sources) Serotonin and Norepinephrine Reuptake Inhibitor End: 06-22-2023 take 1 tablet by mouth twice daily Milnacipran (SAVELLA) 50 mg tab Take 50 mg by mouth twice daily. 0 06/22/2023 Discontinued Comment on above: Take 50 mg by mouth twice daily. mometasone furoate 0.05 mg/actuat metered dose nasal spray (3 sources) Corticosteroid End: 06-22-2023 mometasone (NASONEX) 50 mcg/actuation nasal spray Use 2 Sprays in the nose once daily. 0 06/22/2023 Discontinued Comment on above: Use 2 Sprays in the nose once daily. promethazine hydrochloride 25 mg oral tablet (8 sources) Phenothiazine take 1-2 tablets by mouth every four to six hours as needed promethazine 25 mg tablet Take 25 mg by mouth. 1-2 tabs po q 4-6hrs PRN 0 Active Comment on above: Take 25 mg by mouth. 1-2 tabs po q 4-6hrs PRN QUEtiapine 50 mg oral tablet (12 sources) Atypical Antipsychotic Start: 04-09-2023 End: 07-08-2023 QUEtiapine (SEROQUEL) 50 mg tablet rosuvastatin calcium 10 mg oral tablet (18 sources) HMG-CoA Reductase Inhibitor Start: 02-11-2023 End: 07-15-2023 rosuvastatin (CRESTOR) 10 mg tablet Comment on above: Take 10 mg by mouth. spironolactone 25 mg oral tablet (12 sources) Aldosterone Antagonist Start: 02-11-2023 End: 07-14-2023 spironolactone (ALDACTONE) 25 mg tablet temazepam 30 mg oral capsule (6 sources) Benzodiazepine End: 07-15-2023 take 1 capsule by mouth once daily at bedtime temazepam (RESTORIL) 30 mg cap Take 30 mg by mouth daily at bedtime. 0 07/15/2023 Discontinued (Discontinued by Patient) Comment on above: Take 30 mg by mouth daily at bedtime. zonisamide 25 mg oral capsule (10 sources) Anti-epileptic Agent Start: 01-28-2023 End: 07-15-2023 zonisamide (ZONEGRAN) 25 mg capsule Payers Date Payer Category Payer Unknown [id number] 2021 Medicare [id number] 2021 Medicare [id number] 2013 Medicaid [id number] 1960 Unknown [id number] 2.16.84 [id number] 1960 Unknown [id number] 2.16.84 [id number] 1960 Unknown [id number] 2.16.84 [id number] 1960 Unknown [id number] 2.16.84 [id number] 1960 Unknown [id number] 2.16.84 [id number] 1960 Unknown [id number] 2.16.84 [id number] 1960 Unknown [id number] 2.16.84 [id number] 1961 Unknown [id number] 2.16.84 [id number] 1960 Unknown [id number] 2.16.84 [id number] 1960 Unknown [id number] 2.16.84 [id number] 1960 Unknown [id number] 2.16.84 [id number] 1960 Unknown [id number] 2.16.840 .[id number] 1960 Unknown [id number] 2.16.840 .[id number] 1960 Unknown [id number] 2.16.840 .[id number] 1961 Unknown [id number] 2.16.840. [id number] 1958 Medicaid [id number] 1958 Medicare [id number] 1958 Self-pay Plan of Treatment Date Care Activity Detail Author Start: 05-14-2026 Diabetes Screening Diabetes Screenin g [facility] Start: 01-05-2025 Screening for malign ant neoplasm of colon [facility] Start: 12-13-2023 Influenza vaccination Influenz a Vaccine (Season Ended) [facility] Start: 09-13-2023 Glaucoma screening Diabetes: R etinopathy Screening [facility] Start: 08-27-2023 Screening for malign ant neoplasm of breast [facility] Start: 08-12-2023 Hemoglobin A1c measurement Diabetes: Hemoglobin A1C [facility] Start: 08-04-2023 End: 08-04-2023 Patient encounter procedure 08/04/2023 10:00 AM EDT Office Visit [facility] [address] [place] [address] Derick Royal MD [address] [place] [address] (Fax) [facility] Start: 08-03-2023 End: 05-20-2024 Hemoglobin A1c/Hemoglobin.total in Blood Hemoglobin A1c Lab Routine Type 2 diabetes mellitus with hyperglycemia, without long-term current use of insulin (CMS/HCC) Expected: 08/03/2023, Expires: 05/20/2024 [facility] Work Phone: Comment on above: Expected: 08/03/2023 , Expires: 05/20/2024 Start: 08-03-2023 End: 08-03-2023 Patient encounter procedure 08/03/2023 11:20 AM EDT Office Visit [facility] [address] [place] [address] Keven Quick MD [address] [place] [id number] [facility] Start: 07-30-2023 Medicare Annual Wellness (AWV) Medicare Annual Wellness (AWV) [facility] Start: 05-20-2023 End: 05-20-2023 Patient encounter procedure [facility] Comment on above: Benign essential HTN (CMS/HCC); Type 2 diabetes mellitus with hyperglycemia, without long-term current use of insulin (CMS/HCC); Mixed dyslipidemia (CMS/HCC); Polypharmacy; Cigarette smoker Start: 12-12-2022 Covid-19 Vaccine ( season) Covid-19 Vaccine ( season) [facility] Start: 12-12-2022 Influenza vaccination Influenza Vacc ine (#1) [facility] Start: 2021 RSV Vaccine (1 - 1-d ose 60+ series) RSV Vaccine (1 - 1-dose 60+ series) [facility] Start: 07-04-2011 Shingrix Vaccine (1 of 2) Shingrix Vaccine (1 of 2) [facility] Start: 2006 Lipid panel Lipid Screening [facility] Start: 2006 Screening for malign ant neoplasm of colon [facility] Start: 07-04-1991 Screening for malign ant neoplasm of cervix HPV Testing [facility] Start: 1982 Screening for malign ant neoplasm of cervix Pap Testing [facility] Start: 1980 Urine microalbumin profile DTaP,Tdap,Td Vaccine (1 - Tdap) [facility] Start: 1980 Urine screening for protein Diabetes: Urine Protein Screening [facility] Start: 07-04-1979 Hepatitis C screening Hepatitis C Sc reening [facility] Start: 07-04-1979 HIV screening HIV Screening [facility] Start: 07-04-1967 Pneumococcal vaccination Pneumococcal Vaccine (1 of 2 - PCV) [facility] Start: 01-03-1962 Covid-19 Vaccine (#1) Covid-19 Vacci ne (#1) [facility] Start: 1961 Screening for malign ant neoplasm of colon [facility] End: 07-14-2024 EMG(NEURO/NI) EMG(NEURO/NI) EMG Routine Bilateral hand numbness 1 Occurrences starting 07/15/2023 until 07/14/2024 [facility] Work Phone: Comment on above: 1 Occurrences starti ng 07/15/2023 until 07/14/2024 [facility] Problems Active Problems Problem Classification Problem Date Documented Date Episodic/Chronic Adjustment disorders (8 sources) Acute situational disturbance; Translations: [Adjustment disorder, unspecified] Onset: 08-27-2022 Resolved: 08-27-2022 08-29-2022 Chronic Anxiety disorders (20 sources) Generalized anxiety disorder; Translations: [Generalized anxiety disorder] Onset: 08-27-2022 08-29-2022 Chronic Asthma (4 sources) Mild intermittent asthma; Translations: [Mild intermittent asthma, uncomplicated] Onset: 08-27-2022 08-29-2022 Chronic Cardiac dysrhythmias (20 sources) Paroxysmal supraventricular tachycardia; Translations: [Paroxysmal supraventricular tachycardia] Onset: 09-09-2011 Resolved: 05-13-2023 10-28-2022 Chronic Chronic obstructive pulmonary disease and bronchiectasis (4 sources) Emphysematous bleb of lung; Translations: [Emphysema, unspecified] Onset: 08-27-2022 08-29-2022 Chronic Congestive heart failure; nonhypertensive (4 sources) Chronic diastolic heart failure; Translations: [Chronic diastolic (congestive) heart failure] Onset: 08-27-2022 08-27-2022 Chronic Diabetes mellitus with complications (10 sources) Type 2 diabetes mellitus; Translations: [Type 2 diabetes mellitus with hyperglycemia] Onset: 08-27-2022 Resolved: 08-27-2022 08-29-2022 Chronic Disorders of lipid metabolism (18 sources) Dyslipidemia; Translations: [Mixed hyperlipidemia] Onset: 08-12-2011 Resolved: 05-13-2023 08-29-2022 Chronic Diverticulosis and diverticulitis (4 sources) Diverticulosis of large intestine without diverticulitis; Translations: [Diverticulosis of large intestine without perforation or abscess without bleeding] Onset: 08-27-2022 08-29-2022 Chronic Epilepsy; convulsions (17 sources) Localization-related symptomatic epilepsy; Translations: [Localization-related (focal) (partial) symptomatic epilepsy and epileptic syndromes with simple partial seizures, not intractable, without status epilepticus] Onset: 12-16-2018 Resolved: 08-27-2022 10-28-2022 Chronic Essential hypertension (6 sources) Benign essential hypertension; Translations: [Essential (primary) hypertension] Onset: 08-27-2022 08-27-2022 Chronic Headache; including migraine (16 sources) Migraine without aura, not refractory ; Translations: [Migraine without aura, not intractable, without status migrainosus] Onset: 08-27-2022 Resolved: 08-27-2022 08-29-2022 Chronic Headache; including migraine (2 sources) Occipital headache; Translations: [Pain of occiput] 07-31-2023 Episodic Joint disorders and dislocations; trauma-related (16 sources) Derangement of left knee; Translations: [Unspecified internal derangement of left knee] Onset: 05-18-2020 08-29-2022 Chronic Malaise and fatigue (12 sources) Fatigue; Translations: [Chronic fatigue, unspecified] Onset: 10-28-2022 10-28-2022 Chronic Menopausal disorders (4 sources) Atrophic vaginitis; Translations: [Postmenopausal atrophic vaginitis] Onset: 08-29-2022 08-29-2022 Chronic Miscellaneous mental health disorders (4 sources) Dream anxiety disorder; 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] Onset: 08-29-2022 08-29-2022 Chronic Mood disorders (12 sources) Recurrent major depressive episodes, moderate ; Translations: [Major depressive disorder, recurrent, moderate] Onset: 08-27-2022 08-29-2022 Chronic Osteoarthritis (8 sources) Arthritis; Translations: [Unspecified osteoarthritis, unspecified site] 02-21-2013 Chronic Other acquired deformities (12 sources) Scoliosis of lumbar spine; Translations: [Scoliosis, unspecified] Onset: 10-28-2022 10-28-2022 Chronic Other aftercare (6 sources) Polypharmacy ; Translations: [Other long term care pharmacist (current) drug therapy] Onset: 08-29-2022 08-29-2022 Episodic Other connective tissue disease (13 sources) Fibromyalgia; Translations: [Fibromyalgia] Onset: 08-27-2022 08-29-2022 Episodic Other injuries and conditions due to external causes (12 sources) Injury of head; Translations: [Unspecified injury of head, initial encounter] Onset: 10-28-2022 10-28-2022 Episodic Other nervous system disorders (4 sources) Chronic pain syndrome; Translations: [Chronic pain syndrome] Onset: 08-27-2022 08-29-2022 Chronic Other nervous system disorders (12 sources) Carpal tunnel syndrome; Translations: [Carpal tunnel syndrome, unspecified upper limb] Onset: 10-28-2022 10-28-2022 Chronic Other nervous system disorders (1 source) Perineurial cyst; 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] 06-01-2023 Chronic Other nervous system disorders (2 sources) Numbness of upper limb; Translations: [Anesthesia of skin] 06-01-2023 Episodic Other nervous system disorders (1 source) Cyst ; Translations: [Extradural cyst of spine] 06-22-2023 Episodic Other nervous system disorders (3 sources) Numbness of hand; Translations: [Anesthesia of skin] 06-22-2023 Episodic Other nervous system disorders (1 source) Anesthesia of skin; Translations: [Bilateral hand numbness] Onset: 07-15-2023 Episodic Other nutritional; endocrine; and metabolic disorders (4 sources) Obesity caused by energy imbalance; Translations: [Other obesity due to excess calories] Onset: 08-29-2022 08-29-2022 Chronic Other screening for suspected conditions (not mental disorders or infectious disease) (1 source) Magnetic resonance imaging of cervical spine abnormal; Translations: [Abnormal findings on diagnostic imaging of other parts of musculoskeletal system] 07-15-2023 Episodic Residual codes; unclassified (4 sources) Obstructive sleep apnea (adult) (pediatric); Translations: [OBSTRUCTIVE SLEEP APNEA] Onset: 03-29-2018 Chronic Residual codes; unclassified (4 sources) Obstructive sleep apnea syndrome; Translations: [Obstructive sleep apnea (adult) (pediatric)] Onset: 08-27-2022 08-29-2022 Chronic Residual codes; unclassified (12 sources) Amnesia; Translations: [Other amnesia] Onset: 10-28-2022 10-28-2022 Episodic Spondylosis; intervertebral disc disorders; other back problems (20 sources) Degeneration of cervical intervertebral disc; Translations: [Other cervical disc degeneration, unspecified cervical region] Onset: 08-27-2022 Resolved: 08-27-2022 08-29-2022 Chronic Spondylosis; intervertebral disc disorders; other back problems (20 sources) Neck pain; Translations: [Cervicalgia] Onset: 08-29-2022 Resolved: 05-13-2023 08-29-2022 Episodic Substance-related disorders (10 sources) Cigarette smoker ; Translations: [Nicotine dependence, cigarettes, uncomplicated] Onset: 09-18-2011 Resolved: 04-23-2023 08-29-2022 Chronic Past or Other Problems Problem Classification Problem Date Documented Date Episodic/Chronic Allergic reactions (8 sources) Allergy to bee venom; Translations: [Bee allergy status] Onset: 07-24-2020 08-29-2022 Episodic Cardiac dysrhythmias (4 sources) Tachycardia; Translations: [Tachycardia, unspecified] Onset: 08-12-2011 Resolved: 05-13-2023 05-13-2023 Episodic Diseases of mouth; excluding dental (20 sources) Hypertrophy of tongue papillae; Translations: [Hypertrophy of tongue papillae] Onset: 08-27-2022 Resolved: 04-23-2023 08-27-2022 Episodic Other acquired deformities (4 sources) Spondylolysis; Translations: [Spondylolysis, lumbar region] Onset: 07-31-2015 10-28-2022 Episodic Other and unspecified benign neoplasm (4 sources) History of polyp of colon; Translations: [Personal history of colonic polyps] Onset: 08-29-2022 08-29-2022 Episodic Other connective tissue disease (4 sources) Left rotator cuff syndrome; Translations: [Unspecified rotator cuff tear or rupture of left shoulder, not specified as traumatic] Onset: 08-27-2022 08-29-2022 Episodic Other connective tissue disease (4 sources) Fibromyositis; Translations: [Fibromyalgia] Onset: 08-08-2011 10-28-2022 Episodic Other diseases of veins and lymphatics (4 sources) Peripheral venous insufficiency; Translations: [Venous insufficiency (chronic) (peripheral)] Onset: 10-08-2020 10-28-2022 Episodic Other diseases of veins and lymphatics (4 sources) Stasis dermatitis; Translations: [Venous insufficiency (chronic) (peripheral)] Onset: 08-27-2022 Resolved: 08-27-2022 08-27-2022 Episodic Other hematologic conditions (4 sources) Erythrocytosis; Translations: [Secondary polycythemia] Onset: 08-27-2022 08-29-2022 Episodic Other hematologic conditions (4 sources) H/O: anemia - iron deficient; Translations: [Personal history of diseases of the blood and blood-forming organs and certain disorders involving the immune mechanism] Onset: 08-29-2022 08-29-2022 Episodic Other lower respiratory disease (4 sources) Dyspnea; Translations: [Dyspnea, unspecified] Onset: 10-28-2022 10-28-2022 Episodic Other non-traumatic joint disorders (12 sources) Anterior knee pain; Translations: [Pain in left knee] Onset: 01-20-2020 Resolved: 05-13-2023 05-13-2023 Episodic Other nutritional; endocrine; and metabolic disorders (4 sources) Overweight; Translations: [Overweight] Onset: 01-28-2017 Resolved: 05-13-2023 05-13-2023 Episodic Poisoning by nonmedicinal substances (4 sources) Allergic reaction to bee sting; Translations: [Toxic effect of venom of bees, accidental (unintentional), initial encounter] Onset: 09-19-2020 Resolved: 05-13-2023 05-13-2023 Episodic Residual codes; unclassified (4 sources) Hypoxia; Translations: [Idiopathic sleep related nonobstructive alveolar hypoventilation] Onset: 08-27-2022 Resolved: 08-27-2022 08-27-2022 Chronic Residual codes; unclassified (4 sources) Insomnia; Translations: [Insomnia, unspecified] Onset: 08-27-2022 Resolved: 08-27-2022 08-27-2022 Episodic Residual codes; unclassified (4 sources) Cardiovascular event risk; Translations: [Other specified personal risk factors, not elsewhere classified] Onset: 08-29-2022 Resolved: 05-13-2023 05-13-2023 Episodic Superficial injury; contusion (8 sources) Contusion of left knee; Translations: [Contusion of left knee, initial encounter] Onset: 01-20-2020 01-20-2020 Episodic Procedures Date Procedure Procedure Detail Performing Clinician Start: 08-29-2022 History of total hysterectomy Hx of hysterectomy, total Derick Royal MD Work Phone: Start: 08-26-2022 Mammography Derick ramon MD Work Phone: Start: 01-05-2015 Colonoscopy Derick ramon MD Work Phone: Results Test Name Value Interpretation Reference Range Facil ity US GALLBLADDERon 09-02-2023 US GALLBLADDER FINDINGS: The liver is somewhat homogeneous, appearance suggestive of diffuse fatty infiltration. Focal sparing near the neighboring gallbladder fossa with additional geographic well circumscribed hypoechogenic areas involving both the right and left hepatic lobes. No focal mass lesions or biliary dilatation, however, is identified. The gallbladder and biliary tree are unremarkable. No gallstones, pericholecystic fluid or gallbladder wall thickening is identified. The biliary tree is non-dilated. The common bile duct measures 2 mm in greatest dimension. IMPRESSION: 1. Normal gallbladder and biliary tree. 2. Hepatic findings (geographic hypoechogenic areas, no masslike appearance, mass effect or lobular contour bulges) questionable significance. If this is a new finding recommend further characterization with CT imaging utilizing hemangioma protocol. TRANSCRIBED BY: ELECTRONICALLY SIGNED BY: Aneudy Guerin MD Normal Not Available CNOVon 07-31-2023 CNOV Office Visit (TAMRA ) JENNIFER BURGOS ([id number]) 1960 F Date Time Provider Department 07/31/23 11:00 AM STEPHANIE MAE During your visit today, we recorded the following information about you: Pulse Blood pressure Weight Height 98/minute 108/61 83.5 kg 1.651 m Stephanie Mae MD 07/31/2023 10:46 AM Signed Thank you for taking the time to come and see me today! Please schedule an appointment for: [facility] Please come back to see me as needed Stephanie Mae MD 07/31/2023 12:13 PM Signed [facility] Pain Management Department Follow-Up Evaluation Chief Complaint: Patient presents with: Establish Care: Neck/ head pain SUBJECTIVE Jennifer Burgos, is a 63 year old with PAST MEDICAL HISTORY Diagnosis Date Anxiety Arthritis Carpal tunnel syndrome Cervical radiculopathy Chronic fatigue DDD (degenerative disc disease), lumbar Depression Fibromyalgia Head trauma Hypercholesterolemia Irregular heartbeat Lumbar radiculopathy Lumbar scoliosis left Lumbosacral spondylosis without myelopathy Memory loss Migraines Sacroiliac joint dysfunction Seizure disorder (HCC) Chief Complaint: Patient presents with: Establish Care: Neck/ head pain . Intensity of pain: 10 on a scale of 0-10. Duration of pain: 3 Months ago. The pain is located Neck (head) Pain Description: Continuous Sharp, Shooting Alleviating Factors: Medication, Reposition, Relaxation Jennifer Burgos reports that her pain is unchanged. Her function is unchanged. Pain score today: 10/10 Past Pain Management Procedures, % relief, and duration: None Past and current medications: Amitriptyline Voltaren gel TopMELI Soliz July 31, 2023 10:28 AM Information copied and pasted from last visit to Pain Management May 25, 2023 The primary encounter diagnosis was Right arm numbness. Diagnoses of Left arm numbness and Tarlov cyst were also pertinent to this visit. This is a 62 year old female with multiple year history of numbness of the entirety of her right arm and numbness of the medial aspect of the left arm, into the fourth and fifth fingers presents as follow-up. In our initial meeting, the patient was confused as to why she was meeting with me and thoughts that she would be meeting with spine surgery. She brought with her today the results of her prior EMG which shows evidence of bilateral C6 radiculopathy and the disc for her MRI which we had the previous read of. The images were uploaded to [facility] today. She notes that in regards to the numbness, there has been no change. She does note a 2 to 3-week history of headache at the base of her skull bilaterally-she notes that she had a longstanding history of migraines since she was 13 years old that spontaneously went away a few years ago. She says that she will follow up with her neurologist that has been seeing her for many years. Physical exam is largely unchanged with negative Spurling bilaterally for any reproducible radicular signs or symptoms. She complains of numbness of the entirety of the right arm and says that she has been dropping things. I noticed no significant weakness on exam. We discussed that at an initial glance, neither the EMG nor the MRI explain why she is having numbness of the entirety of the right arm and the left arm. At the patient's request, I placed a referral to spine surgery for evaluation of numbness of the entirety of the right arm and medial left arm with evidence of cyst in the cervical spine. PLAN: Referral to Spine Surgery placed at patient's request Follow-up with neurologist closer to home in regards to headache Follow-up with me as needed New or Pertinent Imaging Objective July 31, 2023 None Past imaging reviewed includes: May 25, 2023 EMG 02/25/23 Past imaging reviewed includes: April 16, 2023 XR CERVICAL SPINE 11/21/22 FINDINGS: Lordosis is within normal limits. No fracture, dislocation or subluxation identified. The prevertebral soft tissues demonstrate normal thickness. The disc joint spaces are preserved. There are marginal osteophytes throughout. Accounting for suboptimal positioning on the oblique views, there is no definite moderate or severe osseous neural foraminal narrowing. The bones are demineralized. The paravertebral soft tissues are unremarkable. The visualized skull base and upper lungs are unremarkable. IMPRESSION: No definite significant neural foraminal narrowing seen radiographically, but the oblique views are limited by positioning. If the patient has upper extremity radiculopathy, cervical spine MRI may be helpful. MRI cervical spine- [facility]- 03/20/23 FINDINGS: There is no acute fracture or subluxation. There is no loss of vertebral body height. The spine is in renny (more content not included)... Normal [facility] CNOVon 07-15-2023 CNOV Office Visit (NUMBHT ) JENNIFER BURGOS ([id number]) 1960 F Date Time Provider Department 07/15/23 2:00 PM RHONDA URRUTIA During your visit today, we recorded the following information about you: Temperature Pulse Blood pressure Weight 97 degrees 92/minute 104/71 84.9 kg Height 1.675 m Rhonda Urrutia MD 07/15/2023 8:32 PM Signed [facility] New Patient Evaluation Consulting Provider: Fabian Tovar [address] [place] [id number] The patient presents with a chief complaint listed below, and is seen in consultation requested by Ms. Fabian Tovar CNP, for an opinion regarding these symptoms. My final recommendations will be communicated back to the requesting physician by way of shared medical record or letter via US mail. Dear Ms. Tovar, Thank you for the referral. Please let me know if you have any questions. Individuals who were included in, or assisted with the encounter were: Jennifer Urrutia MD Chief Complaint/Issues: Jennifer Burgos is a 63 year old female who is followed by neurologist Dr. Keven Quick and has a history of epilepsy, diabetes, hyperlipidemia, COPD, congestive heart failure, hypertension and history of migraine disorder along with arthralgias who is here accompanied by her and seen in the [facility] at the request of neurosurgery for: Arm and hand numbness bilaterally HPI: 63 yr old on disability for back problems. Last summer started with 1) Left arms and hand getting numb 4th and 5th finger and goes up the ulnar side up to the medial aspect of arm and to the shoulder. Woke up this am and has sharp stabbing type of pain, massaged it and takes tylenol. It takes 45 min to an hour and then gradually goes away and warm compresses make it feel better. 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 NO change in color of the skins. Hands sometime will get more injected. Usually her hands are normally cold. 2) whole right arm and right more like numb and tingling, both arms are not as strong as they used to be. No OT or PT done recently 3) sudden jerks of the right hand comes out of the blue and she might spill her coffee. No family hx of tremors Patient had initial workup with Dr. Quick with an EMG nerve conduction study that she has brought for me to review, unfortunately it is not a great copy as she has not enlarged and the writing is very small. I can read the results better than I can see the table. It seems that she has some chronic neurogenic complexes (because these abnormal motor unit potentials equal MUP and interference pattern which I take it to be dropped out of motor unit potentials) in the C 6-C7, C7-C8 myotomes. He does not particularly mention fibrillation potentials and EMG but states that patient has abnormal neurogenic pattern in the same myotomes (this includes fibrillation potentials positive sharp waves and large motor potentials and decreased number of motor unit potentials with maximal effort) We also reviewed the cervical spine MRI. She did bring a disc of this. Patient states that she sought a second opinion because she had all this workup in February with Dr. Quick and then when she went back for follow-up in April he did not mention anything about the previous workup and in his note that I see in [facility] does not mention anything about his previous workup. Patient got concerned because she left the office confused and then a few days later she was told to follow-up with a neurosurgeon in [place]. Initially when she called the neurosurgeon refused to see her and then more recently the neurosurgery office is called back to make an appointment with her. She has been seen by pain management and then was seen by Ms. Brianne CNP, from neurosurgery/spine on a virtual visit and her scan was reviewed by neurosurgery then patient was referred to neurology. Patient was told that she does not need surgery. She was not given a follow-up with neurosurgery or spine. Other problems are: Simple partial and complex sz: does not jerk, wakes up in the middle of the night and she can't see and she cannot move. Diagnosed in [place] but I cannot find her records at the [facility] in [place]. Her seizure disorder is being managed by Dr. Quick. She is on Topamax for it. She has mental health disorders of depression and anxiety and she sees a counselor for that. General Examination: BP 104/71 (BP Site: Left Arm, BP Position: Sitting, BP Cuff Size: Large Adult) Pulse 92 Temp 36.1 ?C (97 ?F) (Temporal) Ht 167.5 cm (5' 5.95 ) Wt 84.9 kg (187 lb 4.5 oz) BMI 30.28 kg/m? General: Awake, alert, interactive, no acute distress, good nutritional status, normal development, well-kept Neurological Exam Men (more content not included)... Normal [facility] CNPNon 07-15-2023 CNPN Telephone (NUMBHT) JENNIFER BURGOS ([id number]) 1960 F Date Time Provider Department 07/15/23 RHONDA URRUTIA During your visit today, we recorded the following information about you: Fred Wild OCCA 07/15/2023 3:09 PM Signed Patient records received via electronic fax. Uploaded to [email or web address] via [employer]. Please review in scanned documents tab of chart review. Scan on 07/15/2023 1:52 PM by Provider, Lexi, PAKeraC: EMG Report MELI Vincent Allergies As of Date: 07/15/2023 Noted Allergy Reaction ADHESIVE TAPE (ROSINS) 02/18/2013 16 - Unknown ASA (ASPIRIN) 02/18/2013 16 - Unknown BENADRYL (DIPHENHYDRAMINE HCL) 02/18/2013 16 - Unknown IBUPROFEN 02/18/2013 16 - Unknown IMITREX (SUMATRIPTAN SUCCINATE) 02/18/2013 16 - Unknown KEPPRA XR (LEVETIRACETAM) 02/18/2013 16 - Unknown LAMICTAL (LAMOTRIGINE) 02/18/2013 16 - Unknown LATEX 02/18/2013 16 - Unknown METHYLPREDNISONE 02/18/2013 16 - Unknown SULFA (SULFONAMIDE ANTIBIOTICS) 02/18/2013 16 - Unknown TEGRETOL (CARBAMAZEPINE) 02/18/2013 16 - Unknown ULTRAM (TRAMADOL HCL) 02/18/2013 16 - Unknown Date Reviewed: 07/15/2023 Reviewed by: Corazon Scott MA - Fully Assessed Reason for Visit: EMG Report [Other] Prescriptions as of 07/15/2023 - losartan (COZAAR) 100 mg tablet - metFORMIN (GLUCOPHAGE) 1,000 mg tablet Take 1,000 mg by mouth. - metoprolol succinate ER (TOPROL XL) 50 mg 24 hr tablet - rosuvastatin (CRESTOR) 10 mg tablet - spironolactone (ALDACTONE) 25 mg tablet - fluticasone (FLOVENT) 220 mcg/actuation inhaler - levalbuterol tartrate HFA 45 mcg/actuation inhaler - QUEtiapine (SEROQUEL) 50 mg tablet - FARXIGA 10 mg tablet - baclofen 20 mg tablet - Amitriptyline HCl 150 mg tablet - diclofenac (VOLTAREN) 1 % topical gel Apply 4 g to affected area. - ALPRAZolam (XANAX) 2 mg tablet Take 2 mg by mouth. 1 tab po QID plus 1 po PRN - tiZANidine HCl (ZANAFLEX) 4 mg capsule Take 4 mg by mouth three times daily. - promethazine 25 mg tablet Take 25 mg by mouth. 1-2 tabs po q 4-6hrs PRN Problem List As Of Date 07/15/2023 Noted Resolved Lumbar scoliosis [M41.9] DDD (degenerative disc disease), lumbar [M51.36] Irregular heartbeat [I49.9] Depression [F32.A] Anxiety [F41.9] Seizure disorder [G40.909] Migraines [G43.909] Chronic fatigue [R53.82] Fibromyalgia [M79.7] Carpal tunnel syndrome [G56.00] Head trauma [S09.90XA] Memory loss [R41.3] Lumbosacral spondylosis without myelopathy [M47* Sacroiliac joint dysfunction [M53.3] Cervical radiculopathy [M54.12] Lumbar radiculopathy [M54.16] Arthritis [M19.90] Hypercholesterolemia [E78.00] Contusion of left knee [S80.02XA] 01/20/2020 Anterior knee pain, left [M25.562] 01/20/2020 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] 05/18/2020 Encounter Status:Closed by FRED WILD on 07/15/23 Normal [facility] CNPNon 07-14-2023 CNPN Telephone (AGUSTO) JENNIFER BURGOS ([id number]) 1960 F Date Time Provider Department 07/14/23 RHONDA URRUTIA During your visit today, we recorded the following information about you: Cruz Awan OCCA 07/14/2023 3:23 PM Signed Called pt verified lastname/ relayed Dr. Urrutia's message to bring in a copy of her EMG/NCS so we can scan in pt verbalized understanding and also stated she was bringing in a disc with her MRI Allergies As of Date: 07/14/2023 Noted Allergy Reaction ADHESIVE TAPE (ROSINS) 02/18/2013 16 - Unknown ASA (ASPIRIN) 02/18/2013 16 - Unknown BENADRYL (DIPHENHYDRAMINE HCL) 02/18/2013 16 - Unknown IBUPROFEN 02/18/2013 16 - Unknown IMITREX (SUMATRIPTAN SUCCINATE) 02/18/2013 16 - Unknown KEPPRA XR (LEVETIRACETAM) 02/18/2013 16 - Unknown LAMICTAL (LAMOTRIGINE) 02/18/2013 16 - Unknown LATEX 02/18/2013 16 - Unknown METHYLPREDNISONE 02/18/2013 16 - Unknown SULFA (SULFONAMIDE ANTIBIOTICS) 02/18/2013 16 - Unknown TEGRETOL (CARBAMAZEPINE) 02/18/2013 16 - Unknown ULTRAM (TRAMADOL HCL) 02/18/2013 16 - Unknown Date Reviewed: 06/01/2023 Reviewed by: Stephanie Mae MD - Fully Assessed Prescriptions as of 07/14/2023 - losartan (COZAAR) 100 mg tablet - metFORMIN (GLUCOPHAGE) 1,000 mg tablet Take 1,000 mg by mouth. - metoprolol succinate ER (TOPROL XL) 50 mg 24 hr tablet - rosuvastatin (CRESTOR) 10 mg tablet - spironolactone (ALDACTONE) 25 mg tablet - fluticasone (FLOVENT) 220 mcg/actuation inhaler - levalbuterol tartrate HFA 45 mcg/actuation inhaler - QUEtiapine (SEROQUEL) 50 mg tablet - FARXIGA 10 mg tablet - baclofen 20 mg tablet - zonisamide (ZONEGRAN) 25 mg capsule - Amitriptyline HCl 150 mg tablet - diclofenac (VOLTAREN) 1 % topical gel Apply 4 g to affected area. - rosuvastatin (CRESTOR) 10 mg tablet Take 10 mg by mouth. - Diclofenac Sodium (VOLTAREN) 1 % gel Apply to affected area. Apply to affected area 2-3 times as needed daily - ALPRAZolam (XANAX) 2 mg tablet Take 2 mg by mouth. 1 tab po QID plus 1 po PRN - tiZANidine HCl (ZANAFLEX) 4 mg capsule Take 4 mg by mouth three times daily. - temazepam (RESTORIL) 30 mg cap Take 30 mg by mouth daily at bedtime. - promethazine 25 mg tablet Take 25 mg by mouth. 1-2 tabs po q 4-6hrs PRN - metoclopramide HCl (REGLAN) 10 mg tablet Take 10 mg by mouth every 8 hours as needed. Problem List As Of Date 07/14/2023 Noted Resolved Lumbar scoliosis [M41.9] DDD (degenerative disc disease), lumbar [M51.36] Irregular heartbeat [I49.9] Depression [F32.A] Anxiety [F41.9] Seizure disorder [G40.909] Migraines [G43.909] Chronic fatigue [R53.82] Fibromyalgia [M79.7] Carpal tunnel syndrome [G56.00] Head trauma [S09.90XA] Memory loss [R41.3] Lumbosacral spondylosis without myelopathy [M47* Sacroiliac joint dysfunction [M53.3] Cervical radiculopathy [M54.12] Lumbar radiculopathy [M54.16] Arthritis [M19.90] Hypercholesterolemia [E78.00] Contusion of left knee [S80.02XA] 01/20/2020 Anterior knee pain, left [M25.562] 01/20/2020 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 MRI otherwise unremarkable. Cyst does not explain hand sx; surgery is not recommended/indicated for cyst. Call to pt to review. No role for spine surgery but also cyst is not expected to be the cause of bilateral hand dysfunction. She would like to see PSYCHIATRIC neurology. Referral placed. Will ask scheduling to assist Call length 7 minutes. Fabian Tovar CNP Allergies As of Date: 06/29/2023 Noted Allergy Reaction ADHESIVE TAPE (ROSINS) 02/18/2013 16 - Unknown ASA (ASPIRIN) 02/18/2013 16 - Unknown BENADRYL (DIPHENHYDRAMINE HCL) 02/18/2013 16 - Unknown IBUPROFEN 02/18/2013 16 - Unknown IMITREX (SUMATRIPTAN SUCCINATE) 02/18/2013 16 - Unknown KEPPRA XR (LEVETIRACETAM) 02/18/2013 16 - Unknown LAMICTAL (LAMOTRIGINE) 02/18/2013 16 - Unknown LATEX 02/18/2013 16 - Unknown METHYLPREDNISONE 02/18/2013 16 - Unknown SULFA (SULFONAMIDE ANTIBIOTICS) 02/18/2013 16 - Unknown TEGRETOL (CARBAMAZEPINE) 02/18/2013 16 - Unknown ULTRAM (TRAMADOL HCL) 02/18/2013 16 - Unknown Date Reviewed: 06/01/2023 Reviewed by: Stephnaie Mae MD - Fully Assessed Reason for Visit: Results [95] Primary Visit Diagnosis:Bilateral hand numbness [R20.0] Order(s):CONSULT TO NEUROLOGY [9019] Order #: [id number]: 1 FUTURE Prescriptions as of 06/29/2023 - losartan (COZAAR) 100 mg tablet - metFORMIN (GLUCOPHAGE) 1,000 mg tablet Take 1,000 mg by mouth. - metoprolol succinate ER (TOPROL XL) 50 mg 24 hr tablet - rosuvastatin (CRESTOR) 10 mg tablet - spironolactone (ALDACTONE) 25 mg tablet - fluticasone (FLOVENT) 220 mcg/actuation inhaler - levalbuterol tartrate HFA 45 mcg/actuation inhaler - QUEtiapine (SEROQUEL) 50 mg tablet - FARXIGA 10 mg tablet - baclofen 20 mg tablet - zonisamide (ZONEGRAN) 25 mg capsule - Amitriptyline HCl 150 mg tablet - diclofenac (VOLTAREN) 1 % topical gel Apply 4 g to affected area. - rosuvastatin (CRESTOR) 10 mg tablet Take 10 mg by mouth. - Diclofenac Sodium (VOLTAREN) 1 % gel Apply to affected area. Apply to affected area 2-3 times as needed daily - ALPRAZolam (XANAX) 2 mg tablet Take 2 mg by mouth. 1 tab po QID plus 1 po PRN - tiZANidine HCl (ZANAFLEX) 4 mg capsule Take 4 mg by mouth three times daily. - temazepam (RESTORIL) 30 mg cap Take 30 mg by mouth daily at bedtime. - promethazine 25 mg tablet Take 25 mg by mouth. 1-2 tabs po q 4-6hrs PRN - metoclopramide HCl (REGLAN) 10 mg tablet Take 10 mg by mouth every 8 hours as needed. Problem List As Of Date 06/29/2023 Noted Resolved Lumbar scoliosis [M41.9] DDD (degenerative disc disease), lumbar [M51.36] Irregular heartbeat [I49.9] Depression [F32.A] Anxiety [F41.9] Seizure disorder [G40.909] Migraines [G43.909] Chronic fatigue [R53.82] Fibromyalgia [M79.7] Carpal tunnel syndrome [G56.00] Head trauma [S09.90XA] Memory loss [R41.3] Lumbosacral spondylosis without myelopathy [M47* Sacroiliac joint dysfunction [M53.3] Cervical radiculopathy [M54.12] Lumbar radiculopathy [M54.16] Arthritis [M19.90] Hypercholesterolemia [E78.00] Contusion of left knee [S80.02XA] 01/20/2020 Anterior knee pain, left [M25.562] 01/20/2020 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] 05/18/2020 Encounter Status:Closed by FABIAN TOVAR on 06/29/23 Normal [facility] CNOVon 06-01-2023 CNOV Office Visit (TAMRA ) JENNIFER BURGOS ([id number]) 1960 F Date Time Provider Department 06/01/23 3:40 PM STEPHANIE MAE During your visit today, we recorded the following information about you: Pulse Blood pressure Weight 94/minute 121/70 87.5 kg Stephanie Mae MD 06/01/2023 4:12 PM Signed [facility] Pain Management Department Follow-Up Evaluation Chief Complaint: Patient presents with: Established Patient: neck The patient is accompanied by SUBJECTIVE Jennifer Burgos, is a 62 year old with PAST MEDICAL HISTORY Diagnosis Date Anxiety Arthritis Carpal tunnel syndrome Cervical radiculopathy Chronic fatigue DDD (degenerative disc disease), lumbar Depression Fibromyalgia Head trauma Hypercholesterolemia Irregular heartbeat Lumbar radiculopathy Lumbar scoliosis left Lumbosacral spondylosis without myelopathy Memory loss Migraines Sacroiliac joint dysfunction Seizure disorder (HCC) Chief Complaint: Patient presents with: Established Patient: neck . Intensity of pain: 8 on a scale of 0-10. Duration of pain: 6 Months ago. The pain is located Neck Pain Description: Continuous Numbness, Aching, Radiating Alleviating Factors: Relaxation Jennifer Burgos reports that her pain is unchanged. Her function is unchanged. Pain score today: 8/10 Information copied and pasted from last visit to Pain Management April 16, 2023 The primary encounter diagnosis was Right arm numbness. Diagnoses of Seizure disorder (HCC), Left arm numbness, and Pain in left elbow were also pertinent to this visit. This is a 62 year old female with multiple year history of diabetes the entirety of the right arm and notice of the medial left arm into the fourth and fifth fingers of the left hand. Ms. Burgos notes that she was referred here by either her PCP or neurologist-other that she is unsure why she is here. She notes a history of x-ray and MRI of her cervical spine with recent EMG of her bilateral upper extremities. The MRI of the cervical spine shows evidence of a osseous expansion of the right neural foramen with a cystic structure measuring 10 mm which may present an arachnoid cyst versus an incidental perineural, Tarlov, cyst. Unfortunately, the results of the EMG are done within our system and the patient is unable to produce the results today. Based off of the MRI results, I told the patient that this is likely not sufficient to cause the symptoms that she is describing with the numbness of the entirety of the right arm and of the medial left arm. However, we discussed that TMJ may show something different than the I am unable to comment on that as I cannot see the results. In regards to this notice, we ultimately discussed that I would like to see if there is a surgical correction for this via neurosurgery. It appears that she discussed her case with neurosurgery closer to home of who deferred any surgical intervention. She states that she has no significant complaints in regards to pain today-she is happy with her current pain medications and does not want anything to change. We discussed that she should talk with her PCP and neurologist and clarify what questions they had in regards to the referral to the [facility]. I encouraged her to upload the results of her EMG interest of the to the [facility]. If she would like to see neurosurgery in the future here for possible surgical intervention, that could be facilitated. As of right now, there is seems to be no indication for follow-up with me as she is currently happy with the management of her pain. EMG?? - was completed Numbness of the entirety of the right arm Numbness in the left - fourth and fifth fingers, along medial aspect of left arm Pain in the left AC - a couple weeks - worse with movement Was told to come here by her PCP or neurologist We discussed that Ms. Burgos has her pain controlled by the medications that she is currently on and in regards to the numbness, she is unsure whyt Diagnostics/Referrals : - Encouraged her to upload results of the EMG 2. Pharmaceuticals: -No changes were made today. Pain medications were reviewed. 3. Procedures/Interventi ons: -Noted at this time. 4. Rehabilitation/Physic al Therapy - N/A 5. Complementary and Alternative Therapies: -This was not discussed today, though patient would benefit from future optimization in this area. 6. Follow up: - Return to clinic in: as needed if symptoms progress or fail to improve New or Pertinent Imaging Objective May 25, 2023 EMG 02/25/23 Past imaging reviewed includes: April 16, 2023 XR CERVICAL SPINE 11/21/22 FINDINGS: Lordosis is within normal limits. No fracture, dislocation or subluxation identified. The prevertebral soft tissues demonstrate normal thickness. T (more content not included)... Normal [facility] CNOVon 04-27-2023 CNOV Office Visit (TAMRA ) JENNIFER BURGOS ([id number]) 1960 F Date Time Provider Department 04/27/23 11:20 AM STEPHANIE MAE During your visit today, we recorded the following information about you: Pulse Blood pressure Weight 85/minute 107/61 86.6 kg Stephanie Mae MD 04/27/2023 11:48 AM Signed [facility] Pain Management Department Consultation Date: April 27, 2023 - Referring physician: No referring provider defined for this encounter. Jennifer Burgos is self referred. Chief Complaint: Patient presents with: Consult: Patient is here for consult for her neck and back pain. SUBJECTIVE History of Present Illness Jennifer Burgos is a 62 year old and presents with chronic pain. Past medical history is significant for: PAST MEDICAL HISTORY Diagnosis Date Anxiety Arthritis Carpal tunnel syndrome Cervical radiculopathy Chronic fatigue DDD (degenerative disc disease), lumbar Depression Fibromyalgia Head trauma Hypercholesterolemia Irregular heartbeat Lumbar radiculopathy Lumbar scoliosis left Lumbosacral spondylosis without myelopathy Memory loss Migraines Sacroiliac joint dysfunction Seizure disorder (HCC) Intensity of pain: 8 on a scale of 0-10. Duration of pain: Years many years ago, with no precipitating event.. The pain is located Neck and radiates to the shoulder bilaterally. Pain Description: Continuous Sharp Timing: changes in severity but always present Aggravating Factors: lifting, twisting, flexion, and extension Alleviating Factors: Cold, Heat, Medication Interference with: physical activity, walking, and lifting. In the past 12 months, She completed 0 physical therapy sessions. Physical therapy is n/a. The patient has seen other pain providers. Possible Red Flag Jennifer Burgos has no red flag symptoms. Past pain treatment has included Chiropractor/[facility] and Acupuncture Past pain medications have included None She had relief from the following interventions: None She had relief from the following medications:None Deandra Guzman MA April 27, 2023 11:07 AM Review of Systems HENT: Negative. Eyes: Negative. Respiratory: Negative. Cardiovascular: Negative. Gastrointestinal: Positive for heartburn. Negative for abdominal pain, blood in stool, constipation, diarrhea, melena, nausea and vomiting. Genitourinary: Negative. Musculoskeletal: Positive for back pain, falls and neck pain. Negative for joint pain and myalgias. Skin: Negative. Neurological: Positive for dizziness and seizures. Negative for tingling, tremors, sensory change, speech change, focal weakness, loss of consciousness, weakness and headaches. Endo/Heme/Allergies: Negative. Psychiatric/Behaviora l: Negative for depression, hallucinations, memory loss, substance abuse and suicidal ideas. The patient is nervous/anxious. The patient does not have insomnia. OBJECTIVE Imaging Objective April 16, 2023 XR CERVICAL SPINE 11/21/22 FINDINGS: Lordosis is within normal limits. No fracture, dislocation or subluxation identified. The prevertebral soft tissues demonstrate normal thickness. The disc joint spaces are preserved. There are marginal osteophytes throughout. Accounting for suboptimal positioning on the oblique views, there is no definite moderate or severe osseous neural foraminal narrowing. The bones are demineralized. The paravertebral soft tissues are unremarkable. The visualized skull base and upper lungs are unremarkable. IMPRESSION: No definite significant neural foraminal narrowing seen radiographically, but the oblique views are limited by positioning. If the patient has upper extremity radiculopathy, cervical spine MRI may be helpful. MRI cervical spine- [facility]- 03/20/23 FINDINGS: There is no acute fracture or subluxation. There is no loss of vertebral body height. The spine is in anatomic alignment, there is preservation of the lordotic curvature of the cervical spine. There is mild intervertebral disc space narrowing at every level. The bone marrow signal is within normal limits. The cervical cord is normal in course and caliber without signal abnormality. The visualized portions of the posterior fossa are within normal limits There is no prevertebral soft tissue swelling. C2-C3: There is no disc herniation, central canal narrowing or neural foraminal narrowing. C3-C4: There is no disc herniation, central canal narrowing or neural foraminal narrowing. C4-C5: There is no disc herniation or central canal narrowing. The left neural foramen is unremarkable. There is osseous expansion of the right neural foramen with a cystic structure measuring 10 mm which may present an arachnoid cyst versus an incidental perineural, Tarlov, cyst. C5-C6: There is a 2 mm disc bulge indenting the thecal sac and abutting the cord and m (more content not included)... Normal [facility] MR CERVICAL SPINE WO CONTRAS Ton 03-20-2023 MR CERVICAL SPINE WO CONTRAST EXAM: MR CERVICAL SPINE WO CONTRAST DATE: 03/20/2023 9:54 AM CLINICAL HISTORY: cervical radic. TECHNIQUE: Multiplanar multisequence images of cervical spine were obtained without IV contrast. COMPARISON: None available. FINDINGS: There is no acute fracture or subluxation. There is no loss of vertebral body height. The spine is in anatomic alignment, there is preservation of the lordotic curvature of the cervical spine. There is mild intervertebral disc space narrowing at every level. The bone marrow signal is within normal limits. The cervical cord is normal in course and caliber without signal abnormality. The visualized portions of the posterior fossa are within normal limits There is no prevertebral soft tissue swelling. C2-C3: There is no disc herniation, central canal narrowing or neural foraminal narrowing. C3-C4: There is no disc herniation, central canal narrowing or neural foraminal narrowing. C4-C5: There is no disc herniation or central canal narrowing. The left neural foramen is unremarkable. There is osseous expansion of the right neural foramen with a cystic structure measuring 10 mm which may present an arachnoid cyst versus an incidental perineural, Tarlov, cyst. C5-C6: There is a 2 mm disc bulge indenting the thecal sac and abutting the cord and mild narrowing of central canal. There is no neural foraminal narrowing. C6-C7: There is no disc herniation, central canal narrowing or neural foraminal narrowing. C7-T1: There is no disc herniation, central canal narrowing or neural foraminal narrowing. IMPRESSION: There are no acute osseous changes. There is no significant central canal narrowing. At C4-5 there is expansion of the right neural foramen measuring 10 mm containing cystic structure which may present and arachnoid cyst versus an incidental perineural Tarlov cysts. ELECTRONICALLY SIGNED BY: Rashid Laws MD Normal Not Available Screening Mammogram, Donovan sibley 08-26-2022 Screening Mammogram, Bilateral COMPARISON: Dating back to September 27, 2020 and September 09, 2018. TECHNIQUE: 2D and 3D Tomosynthesis of the right and left breasts was performed. FINDINGS: Breast composition demonstrates almost entirely fat. Overall appearance stable. No suspicious microcalcifications, dominant mass lesions, or distortion is present. IMPRESSION: BI-RADS 1- Negative Mammogram Board Certified Radiologist. Accredited by the ACR and FDA. MAMMOGRAPHY IS VERY IMPORTANT TO YOUR HEALTH. THE CURRENT [employer] [employer] GUIDELINES RECOMMENDS ANNUAL MAMMOGRAPHY BEGINNING AT AGE 40 THIS FACILITY USES A REMINDER SYSTEM TO ENSURE ALL PATIENTS RECEIVE REMINDER NOTIFICATIONS AT THE APPROPRIATE TIME BASED ON THE RECOMMENDATIONS OF THIS EXAM. Report reported and signed by Aneudy Guerin on 08/26/2022 1440 Normal [facility] [employer] XR Bone Density (DEXA)on XR Bone Density (DEXA) FINDINGS: Comparison made with prior examination of January 06, 2020. [facility] Total(g/cm2)(%)T-Scor e(%)Z-Score Mean.48777-5.7110+0.6 Impression: The mean BMD and corresponding T-score indicated above indicate Low Bone Mass (Borderline Osteopenia) and places the patient at a mild to moderate increased risk for fracture. There may be a future risk of developing osteoporosis. Recommend follow-up exam in 1 year, sooner as clinically necessary. Percent change from prior examination is -.6 prior BMD -0.8. [facility] ge-Matched Total(g/cm2)(%)T-Scor e(%)Z-Score L1-[id number]+1.8140+ 3.2 Impression: The mean BMD and corresponding T-score indicated above indicate Normal Bone Mass and places the patient no significant risk for fracture. This information can serve as a baseline with which to compare future studies. Recommend follow-up exam in 2 years, sooner as clinically necessary. Prior examination BMD was 1.193 percent change is +4.1. Comment: The T-score is the primary focus of the interpretation of a patient???s bone mineral density measurement. The T-score is the number of standard deviations an individual is above or below the mean value for a young female having normal bone mass. The WHO defines osteoporosis based on the T-score value??? +1.0 to ???0.9 : Normal bone mass -1.0 to -2.5 : Osteopenia and thus may be at future risk of fracture -2.6 to ???5 : Osteoporosis and ???at significantly increased risk of fracture??? A Z-Score of -2.0 or lower is defined as ???below the expected range for age??? and a Z-Score above -2.0 is ???within the expected range for age.??? Osteoporosis cannot be diagnosed in men under the age of 50 on the basis of BMD alone. Per 2019 ISCD guidelines, Z-Scores (not T-Scores) are preferred when reporting data in premenopausal females and males less than 50 years of age. Report reported and signed by Aneudy Guerin on 08/26/2022 1257 Normal [facility] MRI Brain w/o + w/on 022 MRI Brain w/o + w/ HISTORY: Left sided facial numbness, tingling, headache, h/o seizures PROCEDURE: [employer] HDXT 1.5. Sagittal coronal and axial T1 and T2 images through the brain were performed with and without contrast. 18 cc of ProHance was administered. FINDINGS: No worrisome intra- or extra-axial mass lesions, mass effect or hemorrhage identified. No evidence of major vessel ischemia is noted. No abnormal areas of intraparenchymal, extradural or meningeal enhancement are identified. Periventricular and subcortical white matter is normal without significant small vessel ischemic or demyelination changes. Ventricular size is normal for this age, and commensurate with the cerebral sulci. Normal signal flow void and enhancement is present within the major cerebral vessels. Corpus callosum, symone, midbrain sellar contents (empty)and suprasellar cistern are normal. The 7th and 8th cranial nerve complexes, internal auditory canals are unremarkable. Calvarium, mastoid air cells and orbital contents are unremarkable. A small amount of sphenoid sinus fluid. Cystic changes involve the pharyngeal mucosa neighboring the right torus tubarius, nonaggressive and nonenhancing (an incidental finding). IMPRESSION: No acute or subacute major vessel ischemia. No mass or edema. Report reported and signed by Aneudy Guerin on 11/20/2021 1245 Normal [facility] Social History Date Type Detail Facility Start: 06-01-2023 End: 07-31-2023 Alcohol intake Current drinker of alcohol (finding) [facility] Start: 05-11-2023 End: 05-20-2023 Alcohol intake Lifetime non-drinker (finding) [facility] Start: 10-28-2022 Education [facility] Start: 10-28-2022 Alcohol Comment Caffeine intak e: 2-3 cups per day [facility] Start: 09-03-2022 End: 07-15-2023 Tobacco smoking status NHIS Ex-smoker [facility] Start: 09-03-2022 End: 07-15-2023 Tobacco use and exposure Smokeless tobacco non-user [facility] Start: 09-02-2022 End: 06-01-2023 [facility] of [facility] Start: 09-02-2022 End: 06-01-2023 Humiliation, Afraid, Rape, and Kick questionnaire [HARK] [facility] Start: 01-20-2020 Gender identity Identifies as female gender (finding) [facility] Start: 01-20-2020 Sexual orientation Heterosexual (fin ding) [facility] Start: 02-21-2013 Tobacco smoking stat us INIS Smokes tobacco daily [facility] Start: 02-21-2013 [facility] Start: 1960 Sex Assigned At Female [facility] End: 06-11-2022 History of tobacco use Current smoker [facility] End: 06-11-2022 History of tobacco use Cigarette Smoker [facility] Within the last year , have you been afraid of your partner or ex-partner? Patient refused [facility] Do you belong to any clubs or organizations such as buddhist groups, unions, fraternal or athletic groups, or school groups? No [facility] Are you now , , , , never or living with a partner? [facility] How often to you hav e a drink containing alcohol? Never [facility] How hard is it for y ou to pay for the very basics like food, housing, medical care, and heating Somewhat hard [facility] Do you feel stress - tense, restless, nervous, or anxious, or unable to sleep at night because your mind is troubled all the time - these days [OSQ] Rather much [facility] (I/We) worried wheth er (my/our) food would run out before (I/we) got money to buy more. Sometimes true [facility] Vital Signs Date Time Vital Sign Value Performing Clinician Ricardo nagy 07-31-2023 10:27-3728 Body height 165.1 cm Stephanie Mae MD Work Phone: [facility] 07-31-2023 10:27-0400 Body weight 83.5 kg Stephanie Mae MD Work Phone: [facility] 07-31-2023 10:27-0400 Diastolic blood pressure 61 mm[Hg] Stephanie Mae MD Work Phone: [facility] 07-31-2023 10:27-0400 Heart rate 98 /min Stephanie Mae MD Work Phone: [facility] 07-31-2023 10:27-0400 Systolic blood pressure 108 mm[Hg] Stephanie Mae MD Work Phone: [facility] 07-15-2023 13:30-0400 Body height 167.5 cm Rhonda Urrutia MD Work Phone: [facility] 07-15-2023 13:30-0400 Body temperature 97 [degF] Rhonda Urrutia MD Work Phone: [facility] 07-15-2023 13:30-0400 Body weight 84.95 kg Rhonda Urrutia MD Work Phone: [facility] 07-15-2023 13:30-0400 Diastolic blood pressure 71 mm[Hg] Rhonda Urrutia MD Work Phone: [facility] 07-15-2023 13:30-0400 Heart rate 92 /min Rhonda Urrutia MD Work Phone: [facility] 07-15-2023 13:30-0400 Systolic blood pressure 104 mm[Hg] Rhonda Urrutia MD Work Phone: [facility] 06-01-2023 15:38-0500 Body weight 87.5 kg Stephanie Mae MD Work Phone: [facility] 06-01-2023 15:38-0500 Diastolic blood pressure 70 mm[Hg] Stephanie Mae MD Work Phone: [facility] 06-01-2023 15:38-0500 Heart rate 94 /min Stephanie Mae MD Work Phone: [facility] 06-01-2023 15:38-0500 Systolic blood pressure 121 mm[Hg] Stephanie Mae MD Work Phone: [facility] 05-20-2023 09:52-0500 Body height 165.1 cm Derick Royal MD Work Phone: [facility] 05-20-2023 09:52-0500 Body mass index (BMI) [Ratio] 31.78 kg/m2 Derick Royal MD Work Phone: [facility] 05-20-2023 09:52-0500 Body weight 86.64 kg Derick Royal MD Work Phone: [facility] 05-20-2023 09:52-0500 Diastolic blood pressure 74 mm[Hg] Derick Royal MD Work Phone: [facility] 05-20-2023 09:52-0500 Heart rate 102 /min Derick Royal MD Work Phone: [facility] 05-20-2023 09:52-0500 SaO2% (BldA) [Mass fraction] 98 % Derick Royal MD Work Phone: [facility] 05-20-2023 09:52-0500 Systolic blood pressure 126 mm[Hg] Derick Royal MD Work Phone: [facility] Clinical Notes 03-11-2022 to 07-31-2023 Stephanie Mae MD - 07/31/2023 11:00 AM EDTPatient InstructionsTelephone Encounter - Fred Wild OCCA - 07/15/2023 3:07 PM Rhonda Andersen MD - 07/15/2023 2:00 PM EDTPatient Instructions Note Date & Type Note Facility 07-31-2023 Note HNO ID: [id number] Author: STEPHANIE MAE MD Service: ? Author Type: Physician Type: Progress Notes Filed: 07/31/2023 12:13 Note Text: [facility] Pain Management Department Follow-Up Evaluation Chief Complaint: Patient presents with: Establish Care: Neck/ head pain SUBJECTIVE Jennifer Burgos, is a 63 year old with PAST MEDICAL HISTORY Diagnosis Date Anxiety Arthritis Carpal tunnel syndrome Cervical radiculopathy Chronic fatigue DDD (degenerative disc disease), lumbar Depression Fibromyalgia Head trauma Hypercholesterolemia Irregular heartbeat Lumbar radiculopathy Lumbar scoliosis left Lumbosacral spondylosis without myelopathy Memory loss Migraines Sacroiliac joint dysfunction Seizure disorder (HCC) Chief Complaint: Patient presents with: Establish Care: Neck/ head pain . Intensity of pain: 10 on a scale of 0-10. Duration of pain: 3 Months ago. The pain is located Neck (head) Pain Description: Continuous Sharp, Shooting Alleviating Factors: Medication, Reposition, Relaxation Jennifer Burgos reports that her pain is unchanged. Her function is unchanged. Pain score today: 10/10 Past Pain Management Procedures, % relief, and duration: None Past and current medications: Amitriptyline Voltaren gel Topamax MELI Serrano July 31, 2023 10:28 AM Information copied and pasted from last visit to Pain Management May 25, 2023 The primary encounter diagnosis was Right arm numbness. Diagnoses of Left arm numbness and Tarlov cyst were also pertinent to this visit. This is a 62 year old female with multiple year history of numbness of the entirety of her right arm and numbness of the medial aspect of the left arm, into the fourth and fifth fingers presents as follow-up. In our initial meeting, the patient was confused as to why she was meeting with me and thoughts that she would be meeting with spine surgery. She brought with her today the results of her prior EMG which shows evidence of bilateral C6 radiculopathy and the disc for her MRI which we had the previous read of. The images were uploaded to [facility] today. She notes that in regards to the numbness, there has been no change. She does note a 2 to 3-week history of headache at the base of her skull bilaterally-she notes that she had a longstanding history of migraines since she was 13 years old that spontaneously went away a few years ago. She says that she will follow up with her neurologist that has been seeing her for many years. Physical exam is largely unchanged with negative Spurling bilaterally for any reproducible radicular signs or symptoms. She complains of numbness of the entirety of the right arm and says that she has been dropping things. I noticed no significant weakness on exam. We discussed that at an initial glance, neither the EMG nor the MRI explain why she is having numbness of the entirety of the right arm and the left arm. At the patient's request, I placed a referral to spine surgery for evaluation of numbness of the entirety of the right arm and medial left arm with evidence of cyst in the cervical spine. PLAN: Referral to Spine Surgery placed at patient's request Follow-up with neurologist closer to home in regards to headache Follow-up with me as needed New or Pertinent Imaging Objective July 31, 2023 None Past imaging reviewed includes: May 25, 2023 EMG 02/25/23 Past imaging reviewed includes: April 16, 2023 XR CERVICAL SPINE 11/21/22 FINDINGS: Lordosis is within normal limits. No fracture, dislocation or subluxation identified. The prevertebral soft tissues demonstrate normal thickness. The disc joint spaces are preserved. There are marginal osteophytes throughout. Accounting for suboptimal positioning on the oblique views, there is no definite moderate or severe osseous neural foraminal narrowing. The bones are demineralized. The paravertebral soft tissues are unremarkable. The visualized skull base and upper lungs are unremarkable. IMPRESSION: No definite significant neural foraminal narrowing seen radiographically, but the oblique views are limited by positioning. If the patient has upper extremity radiculopathy, cervical spine MRI may be helpful. MRI cervical spine- [facility]- 03/20/23 FINDINGS: There is no acute fracture or subluxation. There is no loss of vertebral body height. The spine is in anatomic alignment, there is preservation of the lordotic curvature of the cervical spine. There is mild intervertebral disc space narrowing at every level. The bone marrow signal is within normal limits. The cervical cord is normal in course and caliber without signal abnormality. The visualized portions of the posterior fossa are within normal limits There is no prevertebral soft tissue swelling. C2-C3: There is no disc herniation, central canal narrowing or neural foraminal narrowing. C3-C4: (more content not included)... [facility] 07-31-2023 History of Presen t illness Narrative Images from the original note were not included. [facility] Pain Management Department Follow-Up Evaluation Chief Complaint: Patient presents with: Establish Care: Neck/ head pain SUBJECTIVE Jennifer Burgos, is a 63 year old with PAST MEDICAL HISTORY Diagnosis Date Anxiety Arthritis Carpal tunnel syndrome Cervical radiculopathy Chronic fatigue DDD (degenerative disc disease), lumbar Depression Fibromyalgia Head trauma Hypercholesterolemia Irregular heartbeat Lumbar radiculopathy Lumbar scoliosis left Lumbosacral spondylosis without myelopathy Memory loss Migraines Sacroiliac joint dysfunction Seizure disorder (HCC) Chief Complaint: Patient presents with: Establish Care: Neck/ head pain . Intensity of pain: 10 on a scale of 0-10. Duration of pain: 3 Months ago. The pain is located Neck (head) Pain Description: Continuous Sharp, Shooting Alleviating Factors: Medication, Reposition, Relaxation Jennifer Burgos reports that her pain is unchanged. Her function is unchanged. Pain score today: 10/10 Past Pain Management Procedures, % relief, and duration: None Past and current medications: Amitriptyline Voltaren gel Topamax MELI Serrano July 31, 2023 10:28 AM Information copied and pasted from last visit to Pain Management May 25, 2023 The primary encounter diagnosis was Right arm numbness. Diagnoses of Left arm numbness and Tarlov cyst were also pertinent to this visit. This is a 62 year old female with multiple year history of numbness of the entirety of her right arm and numbness of the medial aspect of the left arm, into the fourth and fifth fingers presents as follow-up. In our initial meeting, the patient was confused as to why she was meeting with me and thoughts that she would be meeting with spine surgery. She brought with her today the results of her prior EMG which shows evidence of bilateral C6 radiculopathy and the disc for her MRI which we had the previous read of. The images were uploaded to [facility] today. She notes that in regards to the numbness, there has been no change. She does note a 2 to 3-week history of headache at the base of her skull bilaterally-she notes that she had a longstanding history of migraines since she was 13 years old that spontaneously went away a few years ago. She says that she will follow up with her neurologist that has been seeing her for many years. Physical exam is largely unchanged with negative Spurling bilaterally for any reproducible radicular signs or symptoms. She complains of numbness of the entirety of the right arm and says that she has been dropping things. I noticed no significant weakness on exam. We discussed that at an initial glance, neither the EMG nor the MRI explain why she is having numbness of the entirety of the right arm and the left arm. At the patient's request, I placed a referral to spine surgery for evaluation of numbness of the entirety of the right arm and medial left arm with evidence of cyst in the cervical spine. PLAN: Referral to Spine Surgery placed at patient's request Follow-up with neurologist closer to home in regards to headache Follow-up with me as needed New or Pertinent Imaging Objective July 31, 2023 None Past imaging reviewed includes: May 25, 2023 EMG 02/25/23 Past imaging reviewed includes: April 16, 2023 XR CERVICAL SPINE 11/21/22 FINDINGS: Lordosis is within normal limits. No fracture, dislocation or subluxation identified. The prevertebral soft tissues demonstrate normal thickness. The disc joint spaces are preserved. There are marginal osteophytes throughout. Accounting for suboptimal positioning on the oblique views, there is no definite moderate or severe osseous neural foraminal narrowing. The bones are demineralized. The paravertebral soft tissues are unremarkable. The visualized skull base and upper lungs are unremarkable. IMPRESSION: No definite significant neural foraminal narrowing seen radiographically, but the oblique views are limited by positioning. If the patient has upper extremity radiculopathy, cervical spine MRI may be helpful. MRI cervical spine- [facility]- 03/20/23 FINDINGS: There is no acute fracture or subluxation. There is no loss of vertebral body height. The spine is in anatomic alignment, there is preservation of the lordotic curvature of the cervical spine. There is mild intervertebral disc space narrowing at every level. The bone marrow signal is within normal limits. The cervical cord is normal in course and caliber without signal abnormality. The visualized portions of the posterior fossa are within normal limits There is no prevertebral soft tissue swelling. C2-C3: There is no disc herniation, central canal narrowing or neural foraminal narrowing. C3-C4: There is no disc herniation, central canal narrowing or neural foraminal narrowing. C4-C5: There is no disc herniation or central canal narrowing. The left neural foramen is unremarkable. There is osseous expansion of the right neural foramen with a cystic structure measuring 10 mm which may present an arachnoid cyst versus an incidental perineural, Tarlov, cyst. C5-C6: There is a 2 mm disc bulge indenting the thecal sac and abutting the cord and mild narrowing of central canal. There is no neural foraminal narrowing. C6-C7: There is no disc herniation, central canal narrowing or neural foraminal narrowing. C7-T1: There is no disc herniation, central canal narrowing or neural foraminal narrowing. Reports listed here were copy and pasted directly into the note after review of the complete report and/or the images. Those areas highlighted in red are significant and to today's encounter. Physical Examination Physical Exam Vitals: BP 108/61 Pulse 98 Ht 5' 5 (1.65m) Wt 184 lb 1.4 oz (83.5kg) BMI 30.63 kg/(m^2). General: Well appearing, alert, in no acute distress, well-hydrated, well nourished. Mental Status: Alert and Oriented x3. Speech is quiet. Affect: depressed Skin: Skin color, texture, turgor normal, no suspicious rashes or lesions HEENT: Pupils equal, round, reactive to light. Not pinpoint. Pulmonary: Breathing easily without tachypnea or bradypnea. Cardiac: No LE edema. Abdomen: soft, not distended Ambulation: Gait is normal. Patient ambulates, unassisted.. Neuro/Musculoskeletal: Left Extension/Rotation: restricted and reproduces pain Right Extension/Rotation: restricted and reproduces pain Left Rotation (normal 50): restricted and reproduces pain Right Rotation (normal 50): restricted and reproduces pain Spurling's Test: Right Negative; Left Negative Facet palpation: Right: tender; Left: tender Facet loading: Right non-tender; Left non-tender Palpation: Tenderness noted generalized palpation of the occiput, midline of the cervical spine, as well as of the bilateral facets and cervical paraspinals +Motor Strength Shoulder Abduction: 5/5 (full) Biceps: 5/5 (full) Triceps: 5/5 (full) Wrist Extension: 5/5 (full) Wrist Flexion: 5/5 (full) Interosseous: 5/5 (full) 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 Assessment & Plan Assessment & Plan July 31, 2023 The primary encounter diagnosis was Seizure disorder (HCC). Diagnoses of Posterior neck pain, Pain of occiput, Chronic daily headache, and Fibromyalgia were also pertinent to this visit. This is a 63 year old female with multiple year history of numbness of the entirety of her right arm and numbness of the medial aspect of the left arm, into the fourth and fifth fingers presents who presents with complaints of headache since she last saw me due to my routine physical exam when examining her neck. She notes that she has had pain in the posterior aspect of her head in the occiput down the midline of her cervical spine down to the vertebral prominens which has been a 10 out of 10 since we last saw each other. During her last visit, she did not mention any pain that was elicited during our exam. Since I last saw her, she was seen virtually by neurosurgery who deemed her not a surgical candidate, and was referred to neurology who have ordered a repeat EMG. They suggested occupational therapy for her arms. She notes that she also has a history of fibromyalgia, which she notes she is prescribed both tizanidine and baclofen by her outside hospital neurologist, however she does not take them at the same time. He was recently started on Topamax by this neurologist, and notes that she is on amitriptyline for loss of smell and taste due to COVID and this is prescribed by an ENT. We discussed potential other medications for fibromyalgia including gabapentin, Lyrica, Cymbalta, Savella-these do not show up in her medication list, however she notes that she has had significant reactions to all of these medications. Physical exam was notable for diffuse tenderness throughout the occiput, midline of the cervical spine, bilateral cervical paraspinals, bilateral trapezii. Strength, reflexes are intact and symmetric bilaterally. No evidence of occipital neuralgia was noted as she is just diffusely tender throughout the entirety of the occiput and the cervical spine. She notes she has a history of migraines which had been controlled for years, however she now has a chronic daily headache. We discussed a referral to the headache clinic to help manage this and take a deeper look into her history of medication use for headache and her new chronic daily headache. Due to her longstanding history of chronic pain with waxing and waning symptoms, we discussed referral to the chronic pain recovery program. Encouraged to use [id number] Tylenol, lidocaine patches, Voltaren gel to help manage this headache in the meantime. I also encouraged her to discuss this with her outside hospital neurologist. PLAN: CPRP referral Referral to headache clinic due to migraine history with new chronic daily headache after routine cervical spine exam Encouraged use of OTC voltaren gel, lidocaine patches Encouraged to discuss this with [facility] neurology, Dr. Quick Follow up as needed Stephanie Mae MD Electronic signature 1. This office note has been dictated and may contain minor typographic errors that escaped review. 2. The nursing staff and medical assistants are a major part of YOUR TREATMENT TEAM and will be handling your phone calls and inquiries, if any. Unless explicitly told otherwise at the time of your office visit, your study results and ensuing treatment plans will be discussed during your follow-up appointment. If you do not have a follow-up appointment and wish to discuss any issues directly with me, please feel free to obtain one. 3. It is my practice to not fill disability or any other insurance-related forms/documention. All of the office notes, study results, and other pertinent documentation generated as part of your evaluation will be available to you and to your Primary Care Physician (PCP). Use of this material to complete such forms will be at the discretion of your PCP/referring physician. Relevant History from the Electronic Medical Record Possible Red Flag Jennifer Burgos has no red flag symptoms. Questionnaires: No data to display Patient Entered Questionnaires 06/21/2023 Spine Questions Pain Location: Neck Symptoms from neck/cervical spine: Yes Employment Status: Disabled for reasons other than back pain 06/21/2023 Neck Questionnaires Benzel Modified TOMI Score 9 (A lower score indicates increased pain and issues.) PROMIS Score Percentiles 06/20/2023 06/21/2023 07/24/2023 Physical Health Physical Function Percentile 7 Sleep Percentile 10 Fatigue Percentile 62 Pain Interference Percentile 2 06/21/2023 PROMIS SOCIAL ROLE SCORE Social Role Satisfaction Percentile 18* 05/31/2023 PROMIS Global Health Scale Physical Health Percentile 10 Percentiles provide an indication of how the patient's score ranks in relation to the general population. Higher percentile rankings indicate better function/quality of life. 50th percentile is the average of the general population and indicates half of respondents had a worse score. Depression Screenin06/21/2023 PHQ-9 Score 10 06/21/2023 PHQ-9 Self Harm Question 9 Not at all PHQ-9 Self-Harm (Item 9) response options: 0 Not at all 1 Several days 2 More than half the days 3 Nearly every day PHQ-9 Levels: 0-4 Minimal depression 5-9 Mild depression 10-14 Moderate depression 15-19 Moderately severe depression 20-27 Severe depression PHQ-9 Score 06/21/2023 10 (0-4) minimal depression, (5-9) mild depression, (10-14) moderate depression, (15-19) moderately severe depression, (20-27) severe depression No data to display ALLERGIES Allergen Reactions Adhesive Tape (Lisa* Unknown Asa [Aspirin] Unknown Benadryl [Diphenhyd* Unknown Ibuprofen Unknown Imitrex [Sumatripta* Unknown Keppra Xr [Levetira* Unknown Lamictal [Lamotrigi* Unknown Latex Unknown Methylprednisone Unknown Sulfa (Sulfonamide * Unknown Tegretol [Carbamaze* Unknown Ultram [Tramadol Hc* Unknown Current Medications: topiramate (TOPAMAX) 100 mg tablet Take 100 mg by mouth. losartan (COZAAR) 100 mg tablet metoprolol succinate ER (TOPROL XL) 50 mg 24 hr tablet rosuvastatin (CRESTOR) 10 mg tablet spironolactone (ALDACTONE) 25 mg tablet fluticasone (FLOVENT) 220 mcg/actuation inhaler levalbuterol tartrate HFA 45 mcg/actuation inhaler QUEtiapine (SEROQUEL) 50 mg tablet FARXIGA 10 mg tablet baclofen 20 mg tablet Amitriptyline HCl 150 mg tablet diclofenac (VOLTAREN) 1 % topical gel Apply 4 g to affected area. ALPRAZolam (XANAX) 2 mg tablet Take 2 mg by mouth. 1 tab po QID plus 1 po PRN tiZANidine HCl (ZANAFLEX) 4 mg capsule Take 4 mg by mouth three times daily. promethazine 25 mg tablet Take 25 mg by mouth. 1-2 tabs po q 4-6hrs PRN metFORMIN (GLUCOPHAGE) 1,000 mg tablet Take 1,000 mg by mouth. Since the last evaluation her medical history has changed in that now has persistent, chronic daily headache. PAST MEDICAL HISTORY Diagnosis Date Anxiety Arthritis Carpal tunnel syndrome Cervical radiculopathy Chronic fatigue DDD (degenerative disc disease), lumbar Depression Fibromyalgia Head trauma Hypercholesterolemia Irregular heartbeat Lumbar radiculopathy Lumbar scoliosis left Lumbosacral spondylosis without myelopathy Memory loss Migraines Sacroiliac joint dysfunction Seizure disorder (HCC) PAST SURGICAL HISTORY Procedure Laterality Date APPENDECTOMY HYSTERECTOMY HX PAST SURGICAL HISTORY OF x3 PAST SURGICAL HISTORY OF D & C PAST SURGICAL HISTORY OF cyst removal vaginal wall PAST SURGICAL HISTORY OF tooth extraction TONSILLECTOMY HX She reports that she has quit smoking. Her smoking use included cigarettes. She has a 15 pack-year smoking history. She has never used smokeless tobacco. She reports current alcohol use. She reports that she does not use drugs. Medical Decision Making The PSYCHIATRIC EMR was reviewed during the visit including: Problem List, Past Medical History, Past Surgical History, Medications, Allergies, Encounters with other providers and associated notes, Imaging, Labs, and Care Everywhere for OSH records Notes and tests identified as copied and pasted above were directly placed into the frame of this note and are pertinent to my medical decision making. [place]ARRS: PDMP website checked and validated and is consistent with medication report. *Information in italics was copied from the shared EMR Medical Decision Making: Problems: Moderate: 2+ stable chronic illnesses Data: Unique source(s) for external note(s) reviewed: 3+ Risk: Low: Low risk from testing/treatment Medical Decision Making Level: 4 - Moderate documented in this encounter [facility] 07-31-2023 Instructions Stephanie Mae MD - 07/31/2023 10:46 AM EDT Thank you for taking the time to come and see me today! Please schedule an appointment for: [facility] Please come back to see me as needed documented in this encounter [facility] 07-15-2023 Note HNO ID: [id number] Author: RHONDA URRUTIA MD Service: ? Author Type: Physician Type: Progress Notes Filed: 07/15/2023 20:32 Note Text: [facility] New Patient Evaluation Consulting Provider: Fabian Tovar [address] [facility] [id number] The patient presents with a chief complaint listed below, and is seen in consultation requested by Ms. Fabian Tovar CNP, for an opinion regarding these symptoms. My final recommendations will be communicated back to the requesting physician by way of shared medical record or letter via US mail. Dear Ms. Tovar, Thank you for the referral. Please let me know if you have any questions. Individuals who were included in, or assisted with the encounter were: Jennifer Burgos Rhonda Urrutia MD Chief Complaint/Issues: Jennifer Burgos is a 63 year old female who is followed by neurologist Dr. Keven Quick and has a history of epilepsy, diabetes, hyperlipidemia, COPD, congestive heart failure, hypertension and history of migraine disorder along with arthralgias who is here accompanied by her and seen in the [facility] at the request of neurosurgery for: Arm and hand numbness bilaterally HPI: 63 yr old on disability for back problems. Last summer started with 1) Left arms and hand getting numb 4th and 5th finger and goes up the ulnar side up to the medial aspect of arm and to the shoulder. Woke up this am and has sharp stabbing type of pain, massaged it and takes tylenol. It takes 45 min to an hour and then gradually goes away and warm compresses make it feel better. 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 NO change in color of the skins. Hands sometime will get more injected. Usually her hands are normally cold. 2) whole right arm and right more like numb and tingling, both arms are not as strong as they used to be. No OT or PT done recently 3) sudden jerks of the right hand comes out of the blue and she might spill her coffee. No family hx of tremors Patient had initial workup with Dr. Quick with an EMG nerve conduction study that she has brought for me to review, unfortunately it is not a great copy as she has not enlarged and the writing is very small. I can read the results better than I can see the table. It seems that she has some chronic neurogenic complexes (because these abnormal motor unit potentials equal MUP and interference pattern which I take it to be dropped out of motor unit potentials) in the C 6-C7, C7-C8 myotomes. He does not particularly mention fibrillation potentials and EMG but states that patient has abnormal neurogenic pattern in the same myotomes (this includes fibrillation potentials positive sharp waves and large motor potentials and decreased number of motor unit potentials with maximal effort) We also reviewed the cervical spine MRI. She did bring a disc of this. Patient states that she sought a second opinion because she had all this workup in February with Dr. Quick and then when she went back for follow-up in April he did not mention anything about the previous workup and in his note that I see in epic does not mention anything about his previous workup. Patient got concerned because she left the office confused and then a few days later she was told to follow-up with a neurosurgeon in [place]. Initially when she called the neurosurgeon refused to see her and then more recently the neurosurgery office is called back to make an appointment with her. She has been seen by pain management and then was seen by Ms. Brianne CNP, from neurosurgery/spine on a virtual visit and her scan was reviewed by neurosurgery then patient was referred to neurology. Patient was told that she does not need surgery. She was not given a follow-up with neurosurgery or spine. Other problems are: Simple partial and complex sz: does not jerk, wakes up in the middle of the night and she can't see and she cannot move. Diagnosed in [place] but I cannot find her records at the [facility] in [place]. Her seizure disorder is being managed by Dr. Quick. She is on Topamax for it. She has mental health disorders of depression and anxiety and she sees a counselor for that. General Examination: BP 104/71 (BP Site: Left Arm, BP Position: Sitting, BP Cuff Size: Large Adult) Pulse 92 Temp 36.1 ?C (97 ?F) (Temporal) Ht 167.5 cm (5' 5.95 ) Wt 84.9 kg (187 lb 4.5 oz) BMI 30.28 kg/m? General: Awake, alert, interactive, no acute distress, good nutritional status, normal development, well-kept Neurological Exam Mental Status Alert, fully oriented, attentive, with normal cognition, memory, speech and affect. Motor Examination and Coordination Motor examination with normal bulk, strength and tone. No drift. Normal rapid alternating movements and coordination. No adventitious movements or significant (more content not included)... [facility] 07-15-2023 Miscellaneous Notes Summary: EMG Report Patient records received via electronic fax. Uploaded to [email or web address] via [employer]. Please review in scanned documents tab of chart review. Scan on 07/15/2023 1:52 PM by Provider, Lexi, JAYLON: EMG Report MELI Vincent documented in this encounter [facility] 07-15-2023 History of Presen t illness Narrative Images from the original note were not included. [facility] New Patient Evaluation Consulting Provider: Fabian Tovar [address] [facility] [id number] The patient presents with a chief complaint listed below, and is seen in consultation requested by Ms. Fabian Tovar CNP, for an opinion regarding these symptoms. My final recommendations will be communicated back to the requesting physician by way of shared medical record or letter via US mail. Dear Ms. Tovar, Thank you for the referral. Please let me know if you have any questions. Individuals who were included in, or assisted with the encounter were: Jennifer Urrutia MD Chief Complaint/Issues: Jennifer Jewell Burgos is a 63 year old female who is followed by neurologist Dr. Keven Quick and has a history of epilepsy, diabetes, hyperlipidemia, COPD, congestive heart failure, hypertension and history of migraine disorder along with arthralgias who is here accompanied by her and seen in the [facility] at the request of neurosurgery for: Arm and hand numbness bilaterally HPI: 63 yr old on disability for back problems. Last summer started with 1) Left arms and hand getting numb 4th and 5th finger and goes up the ulnar side up to the medial aspect of arm and to the shoulder. Woke up this am and has sharp stabbing type of pain, massaged it and takes tylenol. It takes 45 min to an hour and then gradually goes away and warm compresses make it feel better. 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 NO change in color of the skins. Hands sometime will get more injected. Usually her hands are normally cold. 2) whole right arm and right more like numb and tingling, both arms are not as strong as they used to be. No OT or PT done recently 3) sudden jerks of the right hand comes out of the blue and she might spill her coffee. No family hx of tremors Patient had initial workup with Dr. Quick with an EMG nerve conduction study that she has brought for me to review, unfortunately it is not a great copy as she has not enlarged and the writing is very small. I can read the results better than I can see the table. It seems that she has some chronic neurogenic complexes (because these abnormal motor unit potentials equal MUP and interference pattern which I take it to be dropped out of motor unit potentials) in the C 6-C7, C7-C8 myotomes. He does not particularly mention fibrillation potentials and EMG but states that patient has abnormal neurogenic pattern in the same myotomes (this includes fibrillation potentials positive sharp waves and large motor potentials and decreased number of motor unit potentials with maximal effort) We also reviewed the cervical spine MRI. She did bring a disc of this. Patient states that she sought a second opinion because she had all this workup in February with Dr. Quick and then when she went back for follow-up in April he did not mention anything about the previous workup and in his note that I see in epic does not mention anything about his previous workup. Patient got concerned because she left the office confused and then a few days later she was told to follow-up with a neurosurgeon in [place]. Initially when she called the neurosurgeon refused to see her and then more recently the neurosurgery office is called back to make an appointment with her. She has been seen by pain management and then was seen by Ms. Brianne CNP, from neurosurgery/spine on a virtual visit and her scan was reviewed by neurosurgery then patient was referred to neurology. Patient was told that she does not need surgery. She was not given a follow-up with neurosurgery or spine. Other problems are: Simple partial and complex sz: does not jerk, wakes up in the middle of the night and she can't see and she cannot move. Diagnosed in [place] but I cannot find her records at the [facility] in [place]. Her seizure disorder is being managed by Dr. Quick. She is on Topamax for it. She has mental health disorders of depression and anxiety and she sees a counselor for that. General Examination: BP 104/71 (BP Site: Left Arm, BP Position: Sitting, BP Cuff Size: Large Adult) Pulse 92 Temp 36.1 C (97 F) (Temporal) Ht 167.5 cm (5' 5.95 ) Wt 84.9 kg (187 lb 4.5 oz) BMI 30.28 kg/m General: Awake, alert, interactive, no acute distress, good nutritional status, normal development, well-kept Neurological Exam Mental Status Alert, fully oriented, attentive, with normal cognition, memory, speech and affect. Motor Examination and Coordination Motor examination with normal bulk, strength and tone. No drift. Normal rapid alternating movements and coordination. No adventitious movements or significant tremor. Reflexes Deep tendon reflexes graded by [facility] Deep Tendon Reflexes Right Left Biceps 2 2 Triceps 1+ 1+ Brachioradialis 2 2 Patellar 2 2 Achilles 1+ 1+ Plantar Downgoing Downgoing Sensation Sensation intact to light touch, pinprick, proprioception and vibration except she has decreased pain sensation on the ulnar side of the hand bilaterally Gait Arises easily. Casual gait, tandem, and Romberg are normal. Can rise on heels and toes. Cardiovascular: Regular rate and rhythm, no carotid or cranial bruits auscultated. 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 There is 10 mm perineural cyst in the right neural foramina at C 4-5 noted in the right neural foramina that is causing some osseous expansion of the neural foramina and putting some pressure on the roots at that level. No myelopathy noted on my neurological examination.. She maintains her cervical lordosis but complains of neck pain and right shoulder pain which is most likely related to her DJD. If her neck pain gets worse then she can be seen by spine clinic, Dr. Boo for trigger point injections. 2) bilateral tingling and numbness of the hands with ulnar distribution being mostly present on the right side (worse side) without any motor abnormality of the ulnar or C7-C8 myotome. No Tinel's sign at the elbow. No atrophy or fasciculations noted. If the EMG nerve conduction study is normal this may be more related to her fibromyalgia. She complains of similar symptoms on the left but I have no explanation for this. The only abnormality on my examination is that she feels less on her pinky than her index finger to pain sensation bilaterally PLAN Patient to have a repeat EMG/nerve conduction study She is to get a better copy of EMG/nerve conduction study report from 02/[address] Quick prior to her repeat EMG nerve conduction study. I would recommend occupational therapy for her arms, if her symptoms continue to bother her. She is already under pain management but perhaps rheumatology evaluation would be helpful. We talked about myelopathy symptoms and if any of his symptoms were to occur then she is to make an appointment with me to follow-up promptly or go to the emergency room. Otherwise if things are okay then I will see her in 6 months for repeat neurological examination Patient to follow-up with Dr. Quick on a regular basis for her seizure disorder and her migraines. Encounter Diagnosis ICD-10-CM 1. Bilateral hand numbness R20.0 EMG(NEURO/NI) 2. Abnormal MRI, cervical spine R93.7 Return in about 6 months (around 01/14/2024) for with Dr. Urrutia. === Data Review Objective Current Outpatient Medications Medication Sig losartan (COZAAR) 100 mg tablet metFORMIN (GLUCOPHAGE) 1,000 mg tablet Take 1,000 mg by mouth. metoprolol succinate ER (TOPROL XL) 50 mg 24 hr tablet rosuvastatin (CRESTOR) 10 mg tablet fluticasone (FLOVENT) 220 mcg/actuation inhaler levalbuterol tartrate HFA 45 mcg/actuation inhaler QUEtiapine (SEROQUEL) 50 mg tablet FARXIGA 10 mg tablet baclofen 20 mg tablet Amitriptyline HCl 150 mg tablet diclofenac (VOLTAREN) 1 % topical gel Apply 4 g to affected area. ALPRAZolam (XANAX) 2 mg tablet Take 2 mg by mouth. 1 tab po QID plus 1 po PRN tiZANidine HCl (ZANAFLEX) 4 mg capsule Take 4 mg by mouth three times daily. promethazine 25 mg tablet Take 25 mg by mouth. 1-2 tabs po q 4-6hrs PRN spironolactone (ALDACTONE) 25 mg tablet (Patient not taking: Reported on 07/15/2023) No current facility-administered medications for this visit. ACTIVE PROBLEM LIST Lumbar Scoliosis Ddd (Degenerative Disc Disease), Lumbar Irregular Heartbeat Depression Anxiety Seizure Disorder (Hcc) Migraines Chronic Fatigue Fibromyalgia Carpal Tunnel Syndrome Head Trauma Memory Loss Lumbosacral Spondylosis Without Myelopathy Sacroiliac Joint Dysfunction Cervical Radiculopathy Lumbar Radiculopathy Arthritis Hypercholesterolemia Contusion of Left Knee Anterior Knee Pain, Left Chondromalacia of Left Patella PAST MEDICAL HISTORY Diagnosis Date Anxiety Arthritis Carpal tunnel syndrome Cervical radiculopathy Chronic fatigue DDD (degenerative disc disease), lumbar Depression Fibromyalgia Head trauma Hypercholesterolemia Irregular heartbeat Lumbar radiculopathy Lumbar scoliosis left Lumbosacral spondylosis without myelopathy Memory loss Migraines Sacroiliac joint dysfunction Seizure disorder (HCC) PAST SURGICAL HISTORY Procedure Laterality Date APPENDECTOMY HYSTERECTOMY HX PAST SURGICAL HISTORY OF x3 PAST SURGICAL HISTORY OF D & C PAST SURGICAL HISTORY OF cyst removal vaginal wall PAST SURGICAL HISTORY OF tooth extraction TONSILLECTOMY HX Social History Tobacco Use Smoking status: Former Packs/day: 0.50 Years: 30.00 Additional pack years: 0.00 Total pack years: 15.00 Types: Cigarettes Smokeless tobacco: Never Substance Use Topics Alcohol use: Yes Comment: occasionally Drug use: No FAMILY HISTORY Problem Relation Age of Onset Coronary Artery Disease Mother Heart Mother heart attack Review of Systems Constitutional: Negative. Skin: Negative. HENT: Positive for tinnitus. Musculoskeletal: Positive for arthralgias, back pain, muscle weakness and neck pain. Eyes: Negative. Respiratory: History of COPD Cardiovascular: History of congestive heart failure Gastrointestinal: Negative. Endocrine: Positive for diabetic symptoms. Genitourinary: Negative. Hematologic/Lymphatic: Negative. Allergic/Immunologic: Negative. Psychiatric: Positive for dysphoric mood and nervous/anxious. Lab and Test Review: General Medical Labs: Last 3 sets of CBC, CMP, Lipids, HBA1C, TSH No data to display Common Neurology Labs: Last 3 sets of ESR, CRP, CK, Vitamin B12, MMA, Folate, Vitamin D, Copper No data to display MRI Cervical Spine - Last 2 Impressions MRI CERVICAL SPINE WO IVCON Exam End: 03/20/2023 10:30 AM (Final result) Impression: There are no acute osseous changes. There is no significant central canal narrowing. At C4-5 there is expansion of the right neural foramen measuring 10 mm containing cystic structure which may present and arachnoid cyst versus an incidental perineural Tarlov cysts. ELECTRONICALLY SIGNED BY: Rashid Laws MD Outside Data/Labs: FINDINGS: of MR of Cspine without contrast 03/20/2023 There is no acute fracture or subluxation. There is no loss of vertebral body height. The spine is in anatomic alignment, there is preservation of the lordotic curvature of the cervical spine. There is mild intervertebral disc space narrowing at every level. The bone marrow signal is within normal limits. The cervical cord is normal in course and caliber without signal abnormality. The visualized portions of the posterior fossa are within normal limits There is no prevertebral soft tissue swelling. C2-C3: There is no disc herniation, central canal narrowing or neural foraminal narrowing. C3-C4: There is no disc herniation, central canal narrowing or neural foraminal narrowing. C4-C5: There is no disc herniation or central canal narrowing. The left neural foramen is unremarkable. There is osseous expansion of the right neural foramen with a cystic structure measuring 10 mm which may present an arachnoid cyst versus an incidental perineural, Tarlov, cyst. C5-C6: There is a 2 mm disc bulge indenting the thecal sac and abutting the cord and mild narrowing of central canal. There is no neural foraminal narrowing. C6-C7: There is no disc herniation, central canal narrowing or neural foraminal narrowing. C7-T1: There is no disc herniation, central canal narrowing or neural foraminal narrowing. Procedure Note Rashid Laws MD - 03/21/2023 Subjective Patient-Entered Data: 07/14/23 - GENERAL NEUROLOGY SCORES 05/31/2023 PROMIS 10 Health, in general Good Physical health, in general Fair Mental health, in general Good Social activities satisfaction Fair Performing ADL's Mostly Social role satisfaction Good Pain, on average 8 Fatigue, on average Moderate PHYSICAL Score 37.4 (Fair) MENTAL Score Incomplete 06/21/2023 Depression Screening PHQ-2 Score 3 PHQ-9 Score 10 07/12/2023 SLEEP APNEA SCORE Probability of moderate-severe sleep apnea (%) SAPS V2 47 (Sleep study not recommended) No data to display 06/21/2023 PROMIS CAT Sleep Disturbance PROMIS Sleep Disturbance T-Score 63 (moderate) PROMIS Sleep Disturbance Percentile 10 I spent a total of 55 minutes on the date of the service which included preparing to see the patient, [id number] patient care, completing clinical documentation, obtaining and/or reviewing separately obtained history, performing a medically appropriate examination, counseling and educating the patient/family/caregiver, ordering medications, tests, or procedures, communicating with other HCPs (not separately reported), independently interpreting results (not separately reported), and communicating results to the patient/family/caregiver. Rhonda Urrutia MD documented in this encounter [facility] 07-14-2023 Miscellaneous Notes Called pt verified lastname/ relayed Dr. Urrutia's message to bring in a copy of her EMG/NCS so we can scan in pt verbalized understanding and also stated she was bringing in a disc with her MRI documented in this encounter [facility] 06-29-2023 Miscellaneous Notes Reviewed MRI cervical images personally as well as reviewed MRI images and EMG report with spine neurosurgeon. 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 MRI otherwise unremarkable. Cyst does not explain hand sx; surgery is not recommended/indicated for cyst. Call to pt to review. No role for spine surgery but also cyst is not expected to be the cause of bilateral hand dysfunction. She would like to see [facility] neurology. Referral placed. Will ask scheduling to assist Call length 7 minutes. Fabian Tovar CNP documented in this encounter [facility] 06-22-2023 Note HNO ID: [id number] Author: FABIAN TOVAR APRN.CNP Service: ? Author Type: Nurse Practitioner Type: Progress Notes Filed: 06/22/2023 09:40 Note Text: VIRTUAL SPINE SURGERY NEW PATIENT This is a virtual visit using [employer] Video Visit. It required patient-provider interaction for the medical decision making as documented below. I have communicated my name and active licensure. The patient's identity and physical location were verified at the time of this visit. Either the patient or their legal premium representative has been informed of the risks and benefits of -- and alternatives to -- treatment through a remote evaluation and consents to proceed with the evaluation remotely. SERVICE DATE: 06/22/2023 REFERRING PROVIDER: Stephanie Mae [address] [facility] [id number] Consult requested for an opinion regarding the evaluation and treatment of Right arm numbness; Left arm numbness; Tarlov cyst. My final impression and recommendations will be communicated back to the requesting physician by way of the shared medical record or letter via [place] mail. SUBJECTIVE Jennifer Burgos is a 62 year old female presenting alone. CHIEF COMPLAINT: hand numbness Summer 2022 noticed UE sx. Fall 2023 EMG Bilateral UE numbness - whole right hand up and into the shoulder - left pinky and ring finger, underside of arm into the shoulder Right hand will twitch and shake, left to a lesser degree Dropping things Neurology/pain management recommend topamax 75mg without benefit She reports some neck pain going into her head. At 06/01/2023 office visit, she describes a maneuver was performed [described Spurlings] Ongoing headache Hand dysfunction limiting QOL/function Hx diabetes: : Yes. Hx of OTONIEL, CPAP PREVIOUS CONSERVATIVE TREATMENTS: Membrane stabilizers: topamax - no benefit; is experiencing side effects ACTIVE PROBLEM LIST Lumbar Scoliosis Ddd (Degenerative Disc Disease), Lumbar Irregular Heartbeat Depression Anxiety Seizure Disorder (Hcc) Migraines Chronic Fatigue Fibromyalgia Carpal Tunnel Syndrome Head Trauma Memory Loss Lumbosacral Spondylosis Without Myelopathy Sacroiliac Joint Dysfunction Cervical Radiculopathy Lumbar Radiculopathy Arthritis Hypercholesterolemia Contusion of Left Knee Anterior Knee Pain, Left Chondromalacia of Left Patella PAST MEDICAL HISTORY Diagnosis Date Anxiety Arthritis Carpal tunnel syndrome Cervical radiculopathy Chronic fatigue DDD (degenerative disc disease), lumbar Depression Fibromyalgia Head trauma Hypercholesterolemia Irregular heartbeat Lumbar radiculopathy Lumbar scoliosis left Lumbosacral spondylosis without myelopathy Memory loss Migraines Sacroiliac joint dysfunction Seizure disorder (HCC) PAST SURGICAL HISTORY Procedure Laterality Date APPENDECTOMY HYSTERECTOMY HX PAST SURGICAL HISTORY OF x3 PAST SURGICAL HISTORY OF D AND C PAST SURGICAL HISTORY OF cyst removal vaginal wall PAST SURGICAL HISTORY OF tooth extraction TONSILLECTOMY HX Social History Tobacco Use Smoking status: Every Day Packs/day: 0.50 Years: 30.00 Additional pack years: 0.00 Total pack years: 15.00 Types: Cigarettes Smokeless tobacco: Never Substance Use Topics Alcohol use: Yes Comment: occasionally Drug use: No ALLERGIES Allergen Reactions Adhesive Tape (Lisa* Unknown Asa [Aspirin] Unknown Benadryl [Diphenhyd* Unknown Ibuprofen Unknown Imitrex [Sumatripta* Unknown Keppra Xr [Levetira* Unknown Lamictal [Lamotrigi* Unknown Latex Unknown Methylprednisone Unknown Sulfa (Sulfonamide * Unknown Tegretol [Carbamaze* Unknown Ultram [Tramadol Hc* Unknown MEDICATIONS: losartan (COZAAR) 100 mg tablet metFORMIN (GLUCOPHAGE) 1,000 mg tablet Take 1,000 mg by mouth. metoprolol succinate ER (TOPROL XL) 50 mg 24 hr tablet rosuvastatin (CRESTOR) 10 mg tablet spironolactone (ALDACTONE) 25 mg tablet fluticasone (FLOVENT) 220 mcg/actuation inhaler levalbuterol tartrate HFA 45 mcg/actuation inhaler QUEtiapine (SEROQUEL) 50 mg tablet FARXIGA 10 mg tablet baclofen 20 mg tablet zonisamide (ZONEGRAN) 25 mg capsule Amitriptyline HCl 150 mg tablet diclofenac (VOLTAREN) 1 % topical gel Apply 4 g to affected area. rosuvastatin (CRESTOR) 10 mg tablet Take 10 mg by mouth. Diclofenac Sodium (VOLTAREN) 1 % gel Apply to affected area. Apply to affected area 2-3 times as needed daily ALPRAZolam (XANAX) 2 mg tablet Take 2 mg by mouth. 1 tab po QID plus 1 po PRN tiZANidine HCl (ZANAFLEX) 4 mg capsule Take 4 mg by mouth three times daily. temazepam (RESTORIL) 30 mg cap Take 30 mg by mouth daily at bedtime. promethazine 25 mg tablet Take 25 mg by mouth. 1-2 tabs po q 4-6hrs PRN metoclopramide HCl (REGLAN) 10 mg tablet Take 10 mg by mouth every 8 hours as needed. Patient Entered Questionnaires Spine Questions 06/21/2023 Pain Location: Neck Symptoms from neck/c (more content not included)... [facility] 06-22-2023 History of Presen t illness Narrative VIRTUAL SPINE SURGERY NEW PATIENT This is a virtual visit using [email or web address] Video Visit. It required patient-provider interaction for the medical decision making as documented below. I have communicated my name and active licensure. The patient's identity and physical location were verified at the time of this visit. Either the patient or their legal premium representative has been informed of the risks and benefits of -- and alternatives to -- treatment through a remote evaluation and consents to proceed with the evaluation remotely. SERVICE DATE: 06/22/2023 REFERRING PROVIDER: Stephanie Mae [address] [facility] [id number] Consult requested for an opinion regarding the evaluation and treatment of Right arm numbness; Left arm numbness; Tarlov cyst. My final impression and recommendations will be communicated back to the requesting physician by way of the shared medical record or letter via US mail. SUBJECTIVE Jennifer Burgos is a 62 year old female presenting alone. CHIEF COMPLAINT: hand numbness Summer 2022 noticed UE sx. Fall 2023 EMG Bilateral UE numbness - whole right hand up and into the shoulder - left pinky and ring finger, underside of arm into the shoulder Right hand will twitch and shake, left to a lesser degree Dropping things Neurology/pain management recommend topamax 75mg without benefit She reports some neck pain going into her head. At 06/01/2023 office visit, she describes a maneuver was performed [described Spurlings] Ongoing headache Hand dysfunction limiting QOL/function Hx diabetes: : Yes. Hx of OTONIEL, CPAP PREVIOUS CONSERVATIVE TREATMENTS: Membrane stabilizers: topamax - no benefit; is experiencing side effects ACTIVE PROBLEM LIST Lumbar Scoliosis Ddd (Degenerative Disc Disease), Lumbar Irregular Heartbeat Depression Anxiety Seizure Disorder (Hcc) Migraines Chronic Fatigue Fibromyalgia Carpal Tunnel Syndrome Head Trauma Memory Loss Lumbosacral Spondylosis Without Myelopathy Sacroiliac Joint Dysfunction Cervical Radiculopathy Lumbar Radiculopathy Arthritis Hypercholesterolemia Contusion of Left Knee Anterior Knee Pain, Left Chondromalacia of Left Patella PAST MEDICAL HISTORY Diagnosis Date Anxiety Arthritis Carpal tunnel syndrome Cervical radiculopathy Chronic fatigue DDD (degenerative disc disease), lumbar Depression Fibromyalgia Head trauma Hypercholesterolemia Irregular heartbeat Lumbar radiculopathy Lumbar scoliosis left Lumbosacral spondylosis without myelopathy Memory loss Migraines Sacroiliac joint dysfunction Seizure disorder (HCC) PAST SURGICAL HISTORY Procedure Laterality Date APPENDECTOMY HYSTERECTOMY HX PAST SURGICAL HISTORY OF x3 PAST SURGICAL HISTORY OF D & C PAST SURGICAL HISTORY OF cyst removal vaginal wall PAST SURGICAL HISTORY OF tooth extraction TONSILLECTOMY HX Social History Tobacco Use Smoking status: Every Day Packs/day: 0.50 Years: 30.00 Additional pack years: 0.00 Total pack years: 15.00 Types: Cigarettes Smokeless tobacco: Never Substance Use Topics Alcohol use: Yes Comment: occasionally Drug use: No ALLERGIES Allergen Reactions Adhesive Tape (Lisa* Unknown Asa [Aspirin] Unknown Benadryl [Diphenhyd* Unknown Ibuprofen Unknown Imitrex [Sumatripta* Unknown Keppra Xr [Levetira* Unknown Lamictal [Lamotrigi* Unknown Latex Unknown Methylprednisone Unknown Sulfa (Sulfonamide * Unknown Tegretol [Carbamaze* Unknown Ultram [Tramadol Hc* Unknown MEDICATIONS: losartan (COZAAR) 100 mg tablet metFORMIN (GLUCOPHAGE) 1,000 mg tablet Take 1,000 mg by mouth. metoprolol succinate ER (TOPROL XL) 50 mg 24 hr tablet rosuvastatin (CRESTOR) 10 mg tablet spironolactone (ALDACTONE) 25 mg tablet fluticasone (FLOVENT) 220 mcg/actuation inhaler levalbuterol tartrate HFA 45 mcg/actuation inhaler QUEtiapine (SEROQUEL) 50 mg tablet FARXIGA 10 mg tablet baclofen 20 mg tablet zonisamide (ZONEGRAN) 25 mg capsule Amitriptyline HCl 150 mg tablet diclofenac (VOLTAREN) 1 % topical gel Apply 4 g to affected area. rosuvastatin (CRESTOR) 10 mg tablet Take 10 mg by mouth. Diclofenac Sodium (VOLTAREN) 1 % gel Apply to affected area. Apply to affected area 2-3 times as needed daily ALPRAZolam (XANAX) 2 mg tablet Take 2 mg by mouth. 1 tab po QID plus 1 po PRN tiZANidine HCl (ZANAFLEX) 4 mg capsule Take 4 mg by mouth three times daily. temazepam (RESTORIL) 30 mg cap Take 30 mg by mouth daily at bedtime. promethazine 25 mg tablet Take 25 mg by mouth. 1-2 tabs po q 4-6hrs PRN metoclopramide HCl (REGLAN) 10 mg tablet Take 10 mg by mouth every 8 hours as needed. Patient Entered Questionnaires Spine Questions 06/21/2023 Pain Location: Neck Symptoms from neck/cervical spine: Yes Employment Status: Disabled for reasons other than back pain Neck Questionnaires 06/21/2023 Benzel Modified TOMI Score 9 (A lower score indicates increased pain and issues.) PROMIS Score Percentiles Physical Health 05/31/2023 06/20/2023 06/21/2023 Physical Function Percentile 7 - - Sleep Percentile - - 10 Fatigue Percentile - 62 - Pain Interference Percentile 4 - - PROMIS SOCIAL ROLE SCORE 06/21/2023 Social Role Satisfaction Percentile 18* PROMIS Global Health Scale 05/31/2023 Physical Health Percentile 10 Percentiles provide an indication of how the patient's score ranks in relation to the general population. Higher percentile rankings indicate better function/quality of life. 50th percentile is the average of the general population and indicates half of respondents had a worse score. Depression Screening: PHQ-9 06/21/2023 Score 10 PHQ-9 Self-harm Question 06/21/2023 Thoughts that you would be better off , or of hurting yourself in some way 0 PHQ-9 Self-Harm (Item 9) response options: 0 Not at all 1 Several days 2 More than half the days 3 Nearly every day PHQ-9 Levels: 0-4 No to mild depression 5-9 Mild depression 10-14 Moderate depression 15-19 Moderately severe depression 20-27 Severe depression OBJECTIVE: VIRTUAL PHYSICAL EXAM GENERAL APPEARANCE: Well nourished, well developed, and no apparent distress. NEURO PSYCH: Patient oriented to person, place, and time. Mood pleasant. Benign affect. DATA REVIEW [facility] records independently reviewed Images independently reviewed with the patient 02/2023 EMG report: chronic bilateral C6 radiculopathy. Otherwise negative 03/28/2023 XR cervical spine REPORT: 03/28/2023 MRI cervical spine REPORT: There are no acute osseous changes. There is no significant central canal narrowing. At C4-5 there is expansion of the right neural foramen measuring 10 mm containing cystic structure which may present and arachnoid cyst versus an incidental perineural Tarlov cysts. 04/01/2023 neurosurgery encounter: Dr. Rg reviewed her MRI films himself and he states that there isn't anything that needs to be done surgically and told her that she needs to go back to her referring doctor. 06/01/2023 [facility] pain management note: We discussed that at an initial glance, neither the EMG nor the MRI explain why she is having numbness of the entirety of the right arm and the left arm. At the patient's request, I placed a referral to spine surgery for evaluation of numbness of the entirety of the right arm and medial left arm with evidence of cyst in the cervical spine. 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 Sx onset summer 2022 Jennifer Burgos has a condition that requires further workup. EMG with chronic bilateral C6 radiculopathy MRI cervical spine wo contrast REPORT indicates at C4-5 there is expansion of the right neural foramen measuring 10 mm containing cystic structure which may present and arachnoid cyst versus an incidental perineural cysts but is otherwise unremarkable. Based on the report alone, it is unclear if this lesion correlates to her sx. Call to: [facility]; [address] [facility]; [place] [address] . They said they can/will push the images to [facility]. Pt updated - aware images are not viewable immediately but I will recheck for them. Once they are available, I will review personally as well as with one of the neurosurgeons and call her after. I spent a total of 32 minutes on the date of the service which included preparing to see the patient, [id number] patient care, completing clinical documentation, obtaining and/or reviewing separately obtained history, performing a medically appropriate examination, counseling and educating the patient/family/caregiver, independently interpreting results (not separately reported), communicating results to the patient/family/caregiver, and care coordination (not separately reported) SIGNATURE: [facility] [place] PATIENT NAME: Jennifer Burgos DATE: June 22, 2023 TIME: 9:00 AM PAGER: documented in this encounter [facility] 06-09-2023 Note HNO ID: [id number] Author: GILDA MULLEN APRN.MAHOGANY Service: ? Author Type: Nurse Practitioner Type: Progress Notes Filed: 06/09/2023 15:42 Note Text: Per Triage: Jennifer Burgos is a 62 year old female. that presents with symptoms of neck pain and headaches. Numbness in arms along with weakness. Impaired dexterity. CMT: Baclofen Tizanidine Topamax Studies (Reports unless indicated) MRI Cervical 03/20/2023 -C4-C5 there is expansion of the right neural foramen measuring 10mm containing cystic structure which may present and arachnoid cyst versus an incidental perineural Tarlov cyst Disposition: Please schedule with surgical MARGARETTE via virtual visit. Would be helpful to get more information on symptoms along with visualizing imaging. May benefit from seeing Neurology for headaches depending on symptoms.Right sided perineural cyst would not explain patients bilateral symptoms. [facility] 06-09-2023 History of Presen t illness Narrative Per Triage: Jennifer Burgos is a 62 year old female. that presents with symptoms of neck pain and headaches. Numbness in arms along with weakness. Impaired dexterity. CMT: Baclofen Tizanidine Topamax Studies (Reports unless indicated) MRI Cervical 03/20/2023 -C4-C5 there is expansion of the right neural foramen measuring 10mm containing cystic structure which may present and arachnoid cyst versus an incidental perineural Tarlov cyst Disposition: Please schedule with surgical MARGARETTE via virtual visit. Would be helpful to get more information on symptoms along with visualizing imaging. May benefit from seeing Neurology for headaches depending on symptoms.Right sided perineural cyst would not explain patients bilateral symptoms. Patient name: Jennifer Burgos Are you being referred by a [facility] or [facility] Management Provider at [facility]? Yes If answer is YES please schedule directly with surgeon, triage does not need to be completed. Is this a self-referral No If not, who is the Referring Provider Stephanie Mae MD/order in [facility] Is this a 2nd opinion from another spine surgeon? No Were you offered surgery? No MRI/CT/myelogram within 12 months? Yes If NO , please refer to medical spine or PCP to complete above imaging, triage does not need to be completed If YES, please ask for the name/address of the facility where the MRI/CT/myelogram was completed: MRI Cervical 03/20/23 [facility] [address] [place] [address] MRI/CT/myelogram viewable in [facility]: No If not, please provide [phone] to fax in imaging reports for review. Also, please inform patient to hand carry imaging disc to appointment. XR (spine) within 12 months: Yes If YES, please ask for the name/address of the facility where the XR was completed: XR cervical 11/21/22 [facility] [address] [place] [address] Dr. Jose's patients: Have you had previous EMG/Nerve Conduction Study, Ultrasound, or MRI for these same symptoms? If YES, please ask for the name/address of the facility where they were completed: Requested provider (First and Last name): any Are you interested in a virtual visit if offered? No 1. Where are you having symptoms related to this visit? Back pain No Leg pain No Arm pain No Neck pain Yes & headache 2. Are you having any of the following symptoms: Difficulty walking No Numbness Yes arms, hands, fingers Weakness Yes arms Trouble using your hands? Yes drop things 3. Have you had any injections or physical therapy in the last 12 months? No If YES then please ask for the name/address of the facility where the injections and/or physical therapy was completed Have you tried any other kinds of non-surgical treatments in the last 12 months? (For example: NSAIDS, muscle relaxants, analgesics, oral steroids, Chiropractor, Acupuncture): Baclofen, Tizanidine, Topamax 4. Are you currently taking daily prescribed narcotic medications for your current symptoms (For example Oxycodone, Hydrocodone, Tramadol, Morphine, Other)? No 5. Have you had previous spinal surgery for this same symptoms? No If YES please ask for the name of facility/address of where the surgery was completed: Additional Comments [phone] documented in this encounter [facility] 06-08-2023 Note HNO ID: [id number] Author: ?, ?, ? Service: ? Author Type: ? Type: Progress Notes Filed: 06/09/2023 15:42 Note Text: Patient name: Jennifer Burgos Are you being referred by a [facility] Spine Health Provider or Pain Management Provider at [facility]? Yes If answer is YES please schedule directly with surgeon, triage does not need to be completed. Is this a self-referral No If not, who is the Referring Provider Stephanie Mae MD/order in [facility] Is this a 2nd opinion from another spine surgeon? No Were you offered surgery? No MRI/CT/myelogram within 12 months? Yes If NO , please refer to medical spine or PCP to complete above imaging, triage does not need to be completed If YES,? please ask for the name/address of the facility where the MRI/CT/myelogram was completed: MRI Cervical 03/20/23 [facility] [employer] [address] [place] [address] MRI/CT/myelogram viewable in [facility]: No If not, please provide [phone] to fax in imaging reports for review. Also, please inform patient to hand carry imaging disc to appointment. XR (spine) within 12 months: Yes If YES,? please ask for the name/address of the facility where the XR was completed: XR cervical 11/21/22 [facility] [employer] [address] [place] [address] Dr. Jose's patients: Have you had previous EMG/Nerve Conduction Study, Ultrasound, or MRI for these same symptoms? If YES,? please ask for the name/address of the facility where they were completed: Requested provider (First and Last name): any Are you interested in a virtual visit if offered? No 1. Where are you having symptoms related to this visit? Back pain No Leg pain No Arm pain No Neck pain Yes AND headache 2. Are you having any of the following symptoms: Difficulty walking No Numbness Yes arms, hands, fingers Weakness Yes arms Trouble using your hands? Yes drop things 3. Have you had any injections or physical therapy in the last 12 months? No If YES then please ask for the name/address of the facility where the injections and/or physical therapy was completed Have you tried any other kinds of non-surgical treatments in the last 12 months? (For example: NSAIDS, muscle relaxants, analgesics, oral steroids, Chiropractor, Acupuncture): Baclofen, Tizanidine, Topamax 4. Are you currently taking daily prescribed narcotic medications for your current symptoms (For example Oxycodone, Hydrocodone, Tramadol, Morphine, Other)? No 5. Have you had previous spinal surgery for this same symptoms? No If YES? please ask for the name of facility/address of where the surgery was completed: Additional Comments [phone] [facility] 06-01-2023 Note HNO ID: [id number] Author: STEPHANIE MAE MD Service: ? Author Type: Physician Type: Progress Notes Filed: 06/01/2023 16:12 Note Text: [facility] Pain Management Department Follow-Up Evaluation Chief Complaint: Patient presents with: Established Patient: neck The patient is accompanied by Jeremie. MIKE Jennifer Burgos, is a 62 year old with PAST MEDICAL HISTORY Diagnosis Date Anxiety Arthritis Carpal tunnel syndrome Cervical radiculopathy Chronic fatigue DDD (degenerative disc disease), lumbar Depression Fibromyalgia Head trauma Hypercholesterolemia Irregular heartbeat Lumbar radiculopathy Lumbar scoliosis left Lumbosacral spondylosis without myelopathy Memory loss Migraines Sacroiliac joint dysfunction Seizure disorder (HCC) Chief Complaint: Patient presents with: Established Patient: neck . Intensity of pain: 8 on a scale of 0-10. Duration of pain: 6 Months ago. The pain is located Neck Pain Description: Continuous Numbness, Aching, Radiating Alleviating Factors: Relaxation Jennifer Burgos reports that her pain is unchanged. Her function is unchanged. Pain score today: 8/10 Information copied and pasted from last visit to Pain Management April 16, 2023 The primary encounter diagnosis was Right arm numbness. Diagnoses of Seizure disorder (HCC), Left arm numbness, and Pain in left elbow were also pertinent to this visit. This is a 62 year old female with multiple year history of diabetes the entirety of the right arm and notice of the medial left arm into the fourth and fifth fingers of the left hand. Ms. Burgos notes that she was referred here by either her PCP or neurologist-other that she is unsure why she is here. She notes a history of x-ray and MRI of her cervical spine with recent EMG of her bilateral upper extremities. The MRI of the cervical spine shows evidence of a osseous expansion of the right neural foramen with a cystic structure measuring 10 mm which may present an arachnoid cyst versus an incidental perineural, Tarlov, cyst. Unfortunately, the results of the EMG are done within our system and the patient is unable to produce the results today. Based off of the MRI results, I told the patient that this is likely not sufficient to cause the symptoms that she is describing with the numbness of the entirety of the right arm and of the medial left arm. However, we discussed that TMJ may show something different than the I am unable to comment on that as I cannot see the results. In regards to this notice, we ultimately discussed that I would like to see if there is a surgical correction for this via neurosurgery. It appears that she discussed her case with neurosurgery closer to home of who deferred any surgical intervention. She states that she has no significant complaints in regards to pain today-she is happy with her current pain medications and does not want anything to change. We discussed that she should talk with her PCP and neurologist and clarify what questions they had in regards to the referral to the [facility]. I encouraged her to upload the results of her EMG interest of the to the [facility]. If she would like to see neurosurgery in the future here for possible surgical intervention, that could be facilitated. As of right now, there is seems to be no indication for follow-up with me as she is currently happy with the management of her pain. EMG?? - was completed Numbness of the entirety of the right arm Numbness in the left - fourth and fifth fingers, along medial aspect of left arm Pain in the left AC - a couple weeks - worse with movement Was told to come here by her PCP or neurologist We discussed that Ms. Burgos has her pain controlled by the medications that she is currently on and in regards to the numbness, she is unsure whyt Diagnostics/Referrals: - Encouraged her to upload results of the EMG 2. Pharmaceuticals: -No changes were made today. Pain medications were reviewed. 3. Procedures/Interventions: -Noted at this time. 4. Rehabilitation/Physical Therapy - N/A 5. Complementary and Alternative Therapies: -This was not discussed today, though patient would benefit from future optimization in this area. 6. Follow up: - Return to clinic in: as needed if symptoms progress or fail to improve New or Pertinent Imaging Objective May 25, 2023 EMG 02/25/23 Past imaging reviewed includes: April 16, 2023 XR CERVICAL SPINE 11/21/22 FINDINGS: Lordosis is within normal limits. No fracture, dislocation or subluxation identified. The prevertebral soft tissues demonstrate normal thickness. The disc joint spaces are preserved. There are marginal osteophytes throughout. Accounting for suboptimal positioning on the oblique views, there is no definite moderate or severe osseous neural foraminal narrowing. The bones are demineralized. T (more content not included)... [facility] 06-01-2023 Instructions Stephanie Mae MD - 06/01/2023 4:02 PM EST Thank you for taking the time to come and see me today! Please follow up with Neurosurgery in regards to your arm numbness and weakness. Please follow up with me as needed documented in this encounter [facility] 06-01-2023 History of Presen t illness Narrative Images from the original note were not included. [facility] Pain Management Department Follow-Up Evaluation Chief Complaint: Patient presents with: Established Patient: neck The patient is accompanied by Harold. MCKEON Jennifer Burgos, is a 62 year old with PAST MEDICAL HISTORY Diagnosis Date Anxiety Arthritis Carpal tunnel syndrome Cervical radiculopathy Chronic fatigue DDD (degenerative disc disease), lumbar Depression Fibromyalgia Head trauma Hypercholesterolemia Irregular heartbeat Lumbar radiculopathy Lumbar scoliosis left Lumbosacral spondylosis without myelopathy Memory loss Migraines Sacroiliac joint dysfunction Seizure disorder (HCC) Chief Complaint: Patient presents with: Established Patient: neck . Intensity of pain: 8 on a scale of 0-10. Duration of pain: 6 Months ago. The pain is located Neck Pain Description: Continuous Numbness, Aching, Radiating Alleviating Factors: Relaxation Jennifer Burgos reports that her pain is unchanged. Her function is unchanged. Pain score today: 8/10 Information copied and pasted from last visit to Pain Management April 16, 2023 The primary encounter diagnosis was Right arm numbness. Diagnoses of Seizure disorder (HCC), Left arm numbness, and Pain in left elbow were also pertinent to this visit. This is a 62 year old female with multiple year history of diabetes the entirety of the right arm and notice of the medial left arm into the fourth and fifth fingers of the left hand. Ms. Burgos notes that she was referred here by either her PCP or neurologist-other that she is unsure why she is here. She notes a history of x-ray and MRI of her cervical spine with recent EMG of her bilateral upper extremities. The MRI of the cervical spine shows evidence of a osseous expansion of the right neural foramen with a cystic structure measuring 10 mm which may present an arachnoid cyst versus an incidental perineural, Tarlov, cyst. Unfortunately, the results of the EMG are done within our system and the patient is unable to produce the results today. Based off of the MRI results, I told the patient that this is likely not sufficient to cause the symptoms that she is describing with the numbness of the entirety of the right arm and of the medial left arm. However, we discussed that TMJ may show something different than the I am unable to comment on that as I cannot see the results. In regards to this notice, we ultimately discussed that I would like to see if there is a surgical correction for this via neurosurgery. It appears that she discussed her case with neurosurgery closer to home of who deferred any surgical intervention. She states that she has no significant complaints in regards to pain today-she is happy with her current pain medications and does not want anything to change. We discussed that she should talk with her PCP and neurologist and clarify what questions they had in regards to the referral to the [facility]. I encouraged her to upload the results of her EMG interest of the to the [facility]. If she would like to see neurosurgery in the future here for possible surgical intervention, that could be facilitated. As of right now, there is seems to be no indication for follow-up with me as she is currently happy with the management of her pain. EMG?? - was completed Numbness of the entirety of the right arm Numbness in the left - fourth and fifth fingers, along medial aspect of left arm Pain in the left AC - a couple weeks - worse with movement Was told to come here by her PCP or neurologist We discussed that Ms. Burgos has her pain controlled by the medications that she is currently on and in regards to the numbness, she is unsure whyt Diagnostics/Referrals: - Encouraged her to upload results of the EMG 2. Pharmaceuticals: -No changes were made today. Pain medications were reviewed. 3. Procedures/Interventions: -Noted at this time. 4. Rehabilitation/Physical Therapy - N/A 5. Complementary and Alternative Therapies: -This was not discussed today, though patient would benefit from future optimization in this area. 6. Follow up: - Return to clinic in: as needed if symptoms progress or fail to improve New or Pertinent Imaging Objective May 25, 2023 EMG 02/25/23 Past imaging reviewed includes: April 16, 2023 XR CERVICAL SPINE 11/21/22 FINDINGS: Lordosis is within normal limits. No fracture, dislocation or subluxation identified. The prevertebral soft tissues demonstrate normal thickness. The disc joint spaces are preserved. There are marginal osteophytes throughout. Accounting for suboptimal positioning on the oblique views, there is no definite moderate or severe osseous neural foraminal narrowing. The bones are demineralized. The paravertebral soft tissues are unremarkable. The visualized skull base and upper lungs are unremarkable. IMPRESSION: No definite significant neural foraminal narrowing seen radiographically, but the oblique views are limited by positioning. If the patient has upper extremity radiculopathy, cervical spine MRI may be helpful. MRI cervical spine- [facility]- 03/20/23 FINDINGS: There is no acute fracture or subluxation. There is no loss of vertebral body height. The spine is in anatomic alignment, there is preservation of the lordotic curvature of the cervical spine. There is mild intervertebral disc space narrowing at every level. The bone marrow signal is within normal limits. The cervical cord is normal in course and caliber without signal abnormality. The visualized portions of the posterior fossa are within normal limits There is no prevertebral soft tissue swelling. C2-C3: There is no disc herniation, central canal narrowing or neural foraminal narrowing. C3-C4: There is no disc herniation, central canal narrowing or neural foraminal narrowing. C4-C5: There is no disc herniation or central canal narrowing. The left neural foramen is unremarkable. There is osseous expansion of the right neural foramen with a cystic structure measuring 10 mm which may present an arachnoid cyst versus an incidental perineural, Tarlov, cyst. C5-C6: There is a 2 mm disc bulge indenting the thecal sac and abutting the cord and mild narrowing of central canal. There is no neural foraminal narrowing. C6-C7: There is no disc herniation, central canal narrowing or neural foraminal narrowing. C7-T1: There is no disc herniation, central canal narrowing or neural foraminal narrowing. Reports listed here were copy and pasted directly into the note after review of the complete report and/or the images. Those areas highlighted in red are significant and to today's encounter. Physical Examination Physical Exam Vitals: BP 121/70 Pulse 94 Wt 192 lb 14.4 oz (87.5kg) General: Well appearing, alert, in no acute distress, well-hydrated, well nourished. Mental Status: Alert and Oriented x3. Speech is normal. Affect: happy Skin: Skin color, texture, turgor normal, no suspicious rashes or lesions HEENT: Pupils equal, round, reactive to light. Not pinpoint. Pulmonary: Breathing easily without tachypnea or bradypnea. Cardiac: No LE edema. Abdomen: soft, not distended Ambulation: Gait is normal. Patient ambulates, unassisted.. Neuro/Musculoskeletal: Left Extension/Rotation: restricted and reproduces pain Right Extension/Rotation: restricted and reproduces pain Left Rotation (normal 50): restricted and reproduces pain Right Rotation (normal 50): restricted and reproduces pain Spurling's Test: Right Negative; Left Negative Facet palpation: Right: tender; Left: tender Facet loading: Right non-tender; Left non-tender Palpation: Tenderness noted with palpation base of skull bilaterally, trapezii bilaterally +Motor Strength Shoulder Abduction: 5/5 (full) Biceps: 5/5 (full) Triceps: 5/5 (full) Wrist Extension: 5/5 (full) Wrist Flexion: 5/5 (full) Interosseous: 5/5 (full) 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 Assessment & Plan Assessment & Plan May 25, 2023 The primary encounter diagnosis was Right arm numbness. Diagnoses of Left arm numbness and Tarlov cyst were also pertinent to this visit. This is a 62 year old female with multiple year history of numbness of the entirety of her right arm and numbness of the medial aspect of the left arm, into the fourth and fifth fingers presents as follow-up. In our initial meeting, the patient was confused as to why she was meeting with me and thoughts that she would be meeting with spine surgery. She brought with her today the results of her prior EMG which shows evidence of bilateral C6 radiculopathy and the disc for her MRI which we had the previous read of. The images were uploaded to [facility] today. She notes that in regards to the numbness, there has been no change. She does note a 2 to 3-week history of headache at the base of her skull bilaterally-she notes that she had a longstanding history of migraines since she was 13 years old that spontaneously went away a few years ago. She says that she will follow up with her neurologist that has been seeing her for many years. Physical exam is largely unchanged with negative Spurling bilaterally for any reproducible radicular signs or symptoms. She complains of numbness of the entirety of the right arm and says that she has been dropping things. I noticed no significant weakness on exam. We discussed that at an initial glance, neither the EMG nor the MRI explain why she is having numbness of the entirety of the right arm and the left arm. At the patient's request, I placed a referral to spine surgery for evaluation of numbness of the entirety of the right arm and medial left arm with evidence of cyst in the cervical spine. PLAN: Referral to Spine Surgery placed at patient's request Follow-up with neurologist closer to home in regards to headache Follow-up with me as needed Stephanie Mae MD Electronic signature 1. This office note has been dictated and may contain minor typographic errors that escaped review. 2. The nursing staff and medical assistants are a major part of YOUR TREATMENT TEAM and will be handling your phone calls and inquiries, if any. Unless explicitly told otherwise at the time of your office visit, your study results and ensuing treatment plans will be discussed during your follow-up appointment. If you do not have a follow-up appointment and wish to discuss any issues directly with me, please feel free to obtain one. 3. It is my practice to not fill disability or any other insurance-related forms/documention. All of the office notes, study results, and other pertinent documentation generated as part of your evaluation will be available to you and to your Primary Care Physician (PCP). Use of this material to complete such forms will be at the discretion of your PCP/referring physician. Relevant History from the Electronic Medical Record Possible Red Flag Jennifer Fanta Burgos has no red flag symptoms. Questionnaires: No flowsheet data found. Patient Entered Questionnaires PROMIS Score Percentiles Physical Health 05/31/2023 Physical Function Percentile 7 Pain Interference Percentile 4 PROMIS Global Health Scale 05/31/2023 Physical Health Percentile 10 Percentiles provide an indication of how the patient's score ranks in relation to the general population. Higher percentile rankings indicate better function/quality of life. 50th percentile is the average of the general population and indicates half of respondents had a worse score. Depression Screening: PHQ-9 Self-Harm (Item 9) response options: 0 Not at all 1 Several days 2 More than half the days 3 Nearly every day PHQ-9 Levels: 0-4 Minimal depression 5-9 Mild depression 10-14 Moderate depression 15-19 Moderately severe depression 20-27 Severe depression No flowsheet data found.(0-4) minimal depression, (5-9) mild depression, (10-14) moderate depression, (15-19) moderately severe depression, (20-27) severe depression No flowsheet data found. ALLERGIES Allergen Reactions Adhesive Tape (Lisa* Unknown Asa [Aspirin] Unknown Benadryl [Diphenhyd* Unknown Ibuprofen Unknown Imitrex [Sumatripta* Unknown Keppra Xr [Levetira* Unknown Lamictal [Lamotrigi* Unknown Latex Unknown Methylprednisone Unknown Sulfa (Sulfonamide * Unknown Tegretol [Carbamaze* Unknown Ultram [Tramadol Hc* Unknown Current Medications: losartan (COZAAR) 100 mg tablet metFORMIN (GLUCOPHAGE) 1,000 mg tablet Take 1,000 mg by mouth. metoprolol succinate ER (TOPROL XL) 50 mg 24 hr tablet rosuvastatin (CRESTOR) 10 mg tablet spironolactone (ALDACTONE) 25 mg tablet fluticasone (FLOVENT) 220 mcg/actuation inhaler levalbuterol tartrate HFA 45 mcg/actuation inhaler QUEtiapine (SEROQUEL) 50 mg tablet FARXIGA 10 mg tablet baclofen 20 mg tablet zonisamide (ZONEGRAN) 25 mg capsule Amitriptyline HCl 150 mg tablet diclofenac (VOLTAREN) 1 % topical gel Apply 4 g to affected area. rosuvastatin (CRESTOR) 10 mg tablet Take 10 mg by mouth. Diclofenac Sodium (VOLTAREN) 1 % gel Apply to affected area. Apply to affected area 2-3 times as needed daily ALPRAZolam (XANAX) 2 mg tablet Take 2 mg by mouth. 1 tab po QID plus 1 po PRN tiZANidine HCl (ZANAFLEX) 4 mg capsule Take 4 mg by mouth three times daily. temazepam (RESTORIL) 30 mg cap Take 30 mg by mouth daily at bedtime. promethazine 25 mg tablet Take 25 mg by mouth. 1-2 tabs po q 4-6hrs PRN metoclopramide HCl (REGLAN) 10 mg tablet Take 10 mg by mouth every 8 hours as needed. busPIRone HCl 30 mg tablet Milnacipran (SAVELLA) 50 mg tab Take 50 mg by mouth twice daily. mometasone (NASONEX) 50 mcg/actuation nasal spray Use 2 Sprays in the nose once daily. Topiramate (TOPAMAX) 50 mg tablet Take 50 mg by mouth. 1 tab po qhs with 100mg tab diltiazem (CARDIZEM) 30 mg tablet Take 30 mg by mouth once daily. topiramate (TOPAMAX) 100 mg tablet Take 100 mg by mouth. 2 tabs po qhs Since the last evaluation her medical history has not changed. PAST MEDICAL HISTORY Diagnosis Date Anxiety Arthritis Carpal tunnel syndrome Cervical radiculopathy Chronic fatigue DDD (degenerative disc disease), lumbar Depression Fibromyalgia Head trauma Hypercholesterolemia Irregular heartbeat Lumbar radiculopathy Lumbar scoliosis left Lumbosacral spondylosis without myelopathy Memory loss Migraines Sacroiliac joint dysfunction Seizure disorder (HCC) PAST SURGICAL HISTORY Procedure Laterality Date APPENDECTOMY HYSTERECTOMY HX PAST SURGICAL HISTORY OF x3 PAST SURGICAL HISTORY OF D & C PAST SURGICAL HISTORY OF cyst removal vaginal wall PAST SURGICAL HISTORY OF tooth extraction TONSILLECTOMY HX She reports that she has been smoking cigarettes. She has a 15 pack-year smoking history. She has never used smokeless tobacco. She reports current alcohol use. She reports that she does not use drugs. Medical Decision Making The PSYCHIATRIC EMR was reviewed during the visit including: Problem List, Past Medical History, Past Surgical History, Medications, Allergies, Encounters with other providers and associated notes, Imaging, Labs, and Care Everywhere for OSH records Notes and tests identified as copied and pasted above were directly placed into the frame of this note and are pertinent to my medical decision making. OARRS: PDMP website checked and validated and is consistent with medication report. *Information in italics was copied from the shared EMR Medical Decision Making: Problems: Low: Stable chronic illness Data: Unique source(s) for external note(s) reviewed: 2 Unique test result(s) reviewed: 1 Risk: Low: Low risk from testing/treatment Medical Decision Making Level: 3 - Low documented in this encounter [facility] 05-20-2023 History of Presen t illness Narrative Patient ID: Keira Burgos is a 62 y.o. female who presents for: Hypertension Patient is here for follow-up of elevated blood pressure. She is exercising and is adherent to a low-salt diet. Blood pressure is not well controlled at home. Cardiac symptoms: lower extremity edema and AMOS . Patient denies chest pain, dyspnea, irregular heart beat, lower extremity edema, and palpitations. Cardiovascular risk factors: advanced age (older than 55 for men, 65 for women), diabetes mellitus, dyslipidemia, hypertension, obesity (BMI >= 30 kg/m2), sedentary lifestyle, and smoking/ tobacco exposure. Use of agents associated with hypertension: none. History of target organ damage: none. Hyperlipidemia Pt who presents for follow-up of dyslipidemia. A repeat fasting lipid profile was not done. The patient does not use medications that may worsen dyslipidemias (corticosteroids, progestins, anabolic steroids, diuretics, beta-blockers, amiodarone, cyclosporine, olanzapine). Exercise: weekly. Diabetes Mellitus Patient presents for follow up of diabetes. Current symptoms include: craving fruit . Symptoms have stabilized. Patient denies hyperglycemia, hypoglycemia , increased appetite, polydipsia, and polyuria. Evaluation to date has included: hemoglobin A1C. Home sugars: BGs consistently in an acceptable range. Pt was having episodes of sweating prufusely and was getting a yeast rash under breast and skin folds. She was placed on medications and asked by to bring in some BS readings from those times. She brought them and BP readings today. Review of Systems Constitutional: Negative for activity change and fatigue. Respiratory: Negative for cough, shortness of breath and wheezing. Cardiovascular: Negative for chest pain, palpitations and leg swelling. Neurological: Negative for light-headedness and headaches. Objective The patient is pleasant and in no acute distress. The head is normocephalic and atraumatic. Both eyes appear grossly normal without obvious lid pathology or icterus. Both ears hearing is grossly intact. The neck is supple and trachea is midline. No masses are appreciated. The anterior cervical lymphatics demonstrates shoddy bilateral nontender lymphadenopathy. There is no supraclavicular lymphadenopathy. The heart is regular rate and rhythm without S3, S4. No murmur. The patient has normal respiratory pattern. The breath sounds are symmetrical without evidence of wheezing, rhonchi, or rales. The chest is normal shape. The skin is warm and dry. The lower extremities have trace edema. Neurologic screening exam is nonfocal. The patient is alert. There is no overt gross evidence of cognitive impairment The patient has good eye contact and speech is clear. Clinisync Result Encounter on 04/08/2023 Component Date Value Ref Range Status SARS-COV-2 AG REFLEX TO DIDIER 04/08/2023 POSITIVE (A) NEGATIVE Final Comment: This test has not been FDA cleared or approved, but has been authorized by the FDA under an Emergency Use Authorization (EUA) for use by authorized laboratories certified under CLIA that meet the requirements to perform moderate or high complexity testing. This test has been authorized only for the detection of proteins from SARS-CoV-2, not for any other viruses or pathogens. The emergency use of this test is authorized for the duration of the declaration that circumstances exist justifying the authorization of emergency use of in vitro diagnostic tests for detection and/or diagnosis of Covid-19 under section 564(b)(1) of the Act, 21 U.S.C. 360bbb-3(b)(1), unless the declaration is terminated or authorization is revoked sooner. Office Visit on 02/24/2023 Component Date Value Ref Range Status Hemoglobin A1C 05/14/2023 8.0 (H) <5.7 % of total Hgb Final Comment: For someone without known diabetes, a hemoglobin A1c value of 6.5% or greater indicates that they may have diabetes and this should be confirmed with a follow-up test. For someone with known diabetes, a value <7% indicates that their diabetes is well controlled and a value greater than or equal to 7% indicates suboptimal control. A1c targets should be individualized based on duration of diabetes, age, comorbid conditions, and other considerations. Currently, no consensus exists regarding use of hemoglobin A1c for diagnosis of diabetes for children. HbA1c performed on [employer] platform. Effective 03/31/23 a change in test platforms may have shifted HbA1c results compared to historical results. Office Visit on 11/27/2022 Component Date Value Ref Range Status Hemoglobin A1C 02/12/2023 7.6 (H) <5.7 % of total Hgb Final Comment: For someone without known diabetes, a hemoglobin A1c value of 6.5% or greater indicates that they may have diabetes and this should be confirmed with a follow-up test. For someone with known diabetes, a value <7% indicates that their diabetes is well controlled and a value greater than or equal to 7% indicates suboptimal control. A1c targets should be individualized based on duration of diabetes, age, comorbid conditions, and other considerations. Currently, no consensus exists regarding use of hemoglobin A1c for diagnosis of diabetes for children. TSH 02/12/2023 1.06 0.40 - 4.50 mIU/L Final T4, FREE 02/12/2023 0.8 0.8 - 1.8 ng/dL Final IRON, TOTAL 02/12/2023 79 45 - 160 mcg/dL Final IRON BINDING CAPACITY 02/12/2023 349 250 - 450 mcg/dL (calc) Final % SATURATION 02/12/2023 23 16 - 45 % (calc) Final Visit Vitals BP 126/74 Pulse 102 Ht 5' 5 Wt 191 lb SpO2 98% BMI 31.78 kg/m OB Status Hysterectomy Smoking Status Former BSA 1.99 m Allergies Allergen Reactions Aspirin Swelling Bee Venom Carbamazepine Other Reaction(s): tongue swelling, sores in mouth Diphenhydramine Other Reaction(s): hyperactive Gabapentin Other Reaction(s): angioedema Hydrocodone-Acetaminophen Ibuprofen Swelling Imipramine Other Reaction(s): swelling mouth,bumps tongue Lamotrigine Other Reaction(s): Drowsiness Latex Other Reaction(s): swelling rash Levetiracetam Other Reaction(s): Drowsiness, swelling tongue Meloxicam Swelling Methylprednisolone Other Reaction(s): blurry vision, steroid rage, gi Paroxetine Other Reaction(s): seizures Penicillins Swelling Pregabalin Other Reaction(s): angioedema Sulfanilamide Other Reaction(s): Hives Sumatriptan Other Reaction(s): chest pain Tramadol Swelling Other Reaction(s): swelling in mouth Wound Dressing Adhesive Other Reaction(s): blisters Bupropion Rash Current Outpatient Medications Medication Instructions ALPRAZolam (XANAX) 1 mg, Oral, See admin instructions, 1 in AM, 1 at noon, 2 at bedtime amitriptyline (ELAVIL) 150 mg, Oral, Nightly baclofen (LIORESAL) 20 mg, Oral, 3 times daily busPIRone (Buspar) 30 MG tablet 0.3 tablets, Oral, 2 times daily dapagliflozin (FARXIGA) 10 mg, Oral, Daily diclofenac sodium (VOLTAREN) 4 g, Topical, 3 times daily EPINEPHrine (EpiPen 2-Axel) 0.3 MG/0.3ML injection syringe 1 Syringe, Injection, Once estradiol (Estrace) 0.1 MG/GM vaginal cream 1 gram Vaginal Twice per week for 90 days fluconazole (DIFLUCAN) 100 mg, Oral, Daily fluticasone (Flovent HFA) 220 MCG/ACT inhaler 1 puff, Inhalation, Every 12 hours levalbuterol (Xopenex HFA) 45 MCG/ACT inhaler 2 puffs, Inhalation, Every 6 hours PRN losartan (COZAAR) 100 mg, Oral, Daily metFORMIN (GLUCOPHAGE) 1,000 mg, Oral, 2 times daily with meals metoprolol succinate XL (TOPROL-XL) 75 mg, Oral, Every 24 hours nabumetone (RELAFEN) 500 mg, Oral, 2 times daily PRN OXYGEN-HELIUM IN 2 L, Inhalation, Nightly QUEtiapine (SEROQUEL) 50 mg, Oral, Nightly rosuvastatin (CRESTOR) 10 mg, Oral, Every 24 hours spironolactone (ALDACTONE) 25 mg, Oral, 2 times daily tiZANidine (ZANAFLEX) 4 mg, Oral, 3 times daily zonisamide (ZONEGRAN) 25 mg, Oral, 2 times daily Assessment/Plan Diagnoses and all orders for this visit: Benign essential HTN (CMS/HCC) Chronic problem, stable, to goal. We previously fill her prescriptions and she is not in need of refill today. Type 2 diabetes mellitus with hyperglycemia, without long-term current use of insulin (CMS/HCC) - glipiZIDE (Glucotrol) 5 MG tablet; Take 1 tablet (5 mg) by mouth in the morning and 1 tablet (5 mg) in the evening. Take before meals. - Hemoglobin A1c; Future Chronic problem that is unstable and not to goal. We discussed some options including the fact that she is getting nearer to needing insulin. For now we are going to add in the new prescription of glipizide in an effort to help the pancreas makes him more insulin. If she does not get to goal with this medication than she would known she needs to move towards insulin injections. In prescribing a new medication consideration of the following encompasses moderate decision making: the current prescriptions and supplements, the current allergies and medication intolerances, the current medical conditions, and potential drug interactions. Drug interaction screening is reviewed and there are moderate to major severity ratings to consider during prescription drug management. If the new medication is considered a controlled substance, then the OARRS and NARX scores are obtained and reviewed. Risks, benefits, and reason for starting their medication were discussed. The patient was given a chance to ask questions today and all questions were answered. The patient is to contact us, preferably by using the patient portal, or call if any other questions arise or if any problems occur with the adjustment in their medication. Mixed dyslipidemia (CMS/HCC) Chronic problem, stable, continue current treatment. Polypharmacy Chronic problem Evaluating the patient's electronic health record today, we specifically note the patient has 5 or more prescriptions and/or multi-morbidity defined as 5 or more diagnoses. Treatment regimens are increasingly complex and potentially harmful, and people with polypharmacy need regular review and prescribing optimisation, with at least a moderate risk of morbidity from the medications themselves creating at least a moderate degree of evaluation and management. This was done today and reviewed with the patient. [facility] https://www.ncbi.nlm.nih.gov/pm c/articles/FTI0892284/. 2015; 13: 74. Published online 2014Jul 18. https://www.ncbi.nlm.nih.gov/pu bmed/40966323 The rising tide of polypharmacy and drug-drug interactions: population database analysis [id number] https://www.ncbi.nlm.nih.gov/pm c/articles/TYE1041147/. 5. Julio K, Cecilia MUNIZ, Royce M, Ty G, Miri S, Ling B. Epidemiology of multimorbidity and implications for health care, research, and medical education: a cross-sectional study. Lancet. 2012;380:37-43. Cigarette smoker Chronic problem that is unstable. The patient continues to use tobacco products and/or nicotine. Prior to your visit today we reviewed your chart and outlined testing and treatment as necessary for your care. Your goal is to quit using tobacco, as it significantly worsens health risks and complicates treatments. The patient was given a chance to ask questions and any questions were answered. documented in this encounter [facility] 04-27-2023 Note HNO ID: [id number] Author: STEPHANIE MAE MD Service: ? Author Type: Physician Type: Progress Notes Filed: 04/27/2023 11:48 Note Text: [facility] Pain Management Department Consultation Date: April 27, 2023 - Referring physician: No referring provider defined for this encounter. Jennifer Burgos is self referred. Chief Complaint: Patient presents with: Consult: Patient is here for consult for her neck and back pain. SUBJECTIVE History of Present Illness Jennifer Burgos is a 62 year old and presents with chronic pain. Past medical history is significant for: PAST MEDICAL HISTORY Diagnosis Date Anxiety Arthritis Carpal tunnel syndrome Cervical radiculopathy Chronic fatigue DDD (degenerative disc disease), lumbar Depression Fibromyalgia Head trauma Hypercholesterolemia Irregular heartbeat Lumbar radiculopathy Lumbar scoliosis left Lumbosacral spondylosis without myelopathy Memory loss Migraines Sacroiliac joint dysfunction Seizure disorder (HCC) Intensity of pain: 8 on a scale of 0-10. Duration of pain: Years many years ago, with no precipitating event.. The pain is located Neck and radiates to the shoulder bilaterally. Pain Description: Continuous Sharp Timing: changes in severity but always present Aggravating Factors: lifting, twisting, flexion, and extension Alleviating Factors: Cold, Heat, Medication Interference with: physical activity, walking, and lifting. In the past 12 months, She completed 0 physical therapy sessions. Physical therapy is n/a. The patient has seen other pain providers. Possible Red Flag Jennifer Burgos has no red flag symptoms. Past pain treatment has included Chiropractor/[facility] and Acupuncture Past pain medications have included None She had relief from the following interventions: None She had relief from the following medications:None Deandra Guzman MA April 27, 2023 11:07 AM Review of Systems HENT: Negative. Eyes: Negative. Respiratory: Negative. Cardiovascular: Negative. Gastrointestinal: Positive for heartburn. Negative for abdominal pain, blood in stool, constipation, diarrhea, melena, nausea and vomiting. Genitourinary: Negative. Musculoskeletal: Positive for back pain, falls and neck pain. Negative for joint pain and myalgias. Skin: Negative. Neurological: Positive for dizziness and seizures. Negative for tingling, tremors, sensory change, speech change, focal weakness, loss of consciousness, weakness and headaches. Endo/Heme/Allergies: Negative. Psychiatric/Behavioral: Negative for depression, hallucinations, memory loss, substance abuse and suicidal ideas. The patient is nervous/anxious. The patient does not have insomnia. OBJECTIVE Imaging Objective April 16, 2023 XR CERVICAL SPINE 11/21/22 FINDINGS: Lordosis is within normal limits. No fracture, dislocation or subluxation identified. The prevertebral soft tissues demonstrate normal thickness. The disc joint spaces are preserved. There are marginal osteophytes throughout. Accounting for suboptimal positioning on the oblique views, there is no definite moderate or severe osseous neural foraminal narrowing. The bones are demineralized. The paravertebral soft tissues are unremarkable. The visualized skull base and upper lungs are unremarkable. IMPRESSION: No definite significant neural foraminal narrowing seen radiographically, but the oblique views are limited by positioning. If the patient has upper extremity radiculopathy, cervical spine MRI may be helpful. MRI cervical spine- [facility]- 03/20/23 FINDINGS: There is no acute fracture or subluxation. There is no loss of vertebral body height. The spine is in anatomic alignment, there is preservation of the lordotic curvature of the cervical spine. There is mild intervertebral disc space narrowing at every level. The bone marrow signal is within normal limits. The cervical cord is normal in course and caliber without signal abnormality. The visualized portions of the posterior fossa are within normal limits There is no prevertebral soft tissue swelling. C2-C3: There is no disc herniation, central canal narrowing or neural foraminal narrowing. C3-C4: There is no disc herniation, central canal narrowing or neural foraminal narrowing. C4-C5: There is no disc herniation or central canal narrowing. The left neural foramen is unremarkable. There is osseous expansion of the right neural foramen with a cystic structure measuring 10 mm which may present an arachnoid cyst versus an incidental perineural, Tarlov, cyst. C5-C6: There is a 2 mm disc bulge indenting the thecal sac and abutting the cord and mild narrowing of central canal. There is no neural foraminal narrowing. C6-C7: There is no disc herniation, central canal narrowing or neural foraminal narrowing. C7-T1: There is no disc herniation, central canal narrowing or neural foraminal na (more content not included)... [facility] 03-11-2022 Note PROCEDURE: [employer] HDXT 1.5 Sagittal T1, T2, STIR and axial T1 and T2 contiguous and cone down images through the lumbar spine were performed without contrast administration. HISTORY: Low back pain, bilateral leg neuropathy x decades FINDINGS: Mild mid lumbar levoscoliosis. Mild central end plate depression throughout the lumbar spine, no acute bone marrow edema. Normal vertebral body alignment. No deep soft tissue inflammation. Normal conus medullaris and filum terminale. Unremarkable paravertebral soft tissues, visualized kidneys and collecting systems. T11-T12 through L1-2: Normal. L2-3: Normal disc volume. Minimal disc bulging. Mild bilateral facet arthropathy, mild bilateral neuroforaminal stenosis. No significant spinal canal stenosis. L3-4: Normal disc volume. Mild bilateral facet arthropathy. No disc herniation. No spinal canal stenosis. Minimal right, mild left neuroforaminal stenosis. L4-5: Mild disc space loss. Broad based disc bulging, small central disc herniation. Bilateral facet arthropathy. No spinal canal stenosis. Minimal right, moderate to severe left mid and exit neuroforaminal stenosis. L5-S1: Normal. IMPRESSION: 1. Moderate to severe left L4-5 neuroforaminal stenosis. Report reported and signed by Aneudy Guerin on 03/11/2022 1040 [facility] [employer] Evaluation note Diagnosis Benign essential HTN (CMS/HCC) Type 2 diabetes mellitus with hyperglycemia, without long-term current use of insulin (CMS/HCC) Mixed dyslipidemia (CMS/HCC) Polypharmacy Issue of repeat prescriptions Cigarette smoker Tobacco use disorder documented in this encounter [facility] Healthcare[facility]* Diagnosis Right arm numbness- Primary Disturbance of skin sensation Left arm numbness Disturbance of skin sensation Tarlov cyst Mononeuritis of unspecified site [facility] Extradural cyst of spine- Primary Bilateral hand numbness Disturbance of skin sensation [facility] Diagnosis Bilateral hand numbness- Primary Disturbance of skin sensation [facility] Diagnosis Bilateral hand numbness- Primary Disturbance of skin sensation Abnormal MRI, cervical spine Nonspecific (abnormal) findings on radiological and other examination of musculoskeletal system Paroxysmal supraventricular tachycardia (HCC) Paroxysmal supraventricular tachycardia [facility] Diagnosis Seizure disorder (HCC)- Primary Unspecified epilepsy without mention of intractable epilepsy Posterior neck pain Cervicalgia Pain of occiput Headache Chronic daily headache Headache Fibromyalgia Mylagia and myositis, unspecified documented in this encounter [facility] for referral (narrative)* Outpatient Procedure (Routine) - Authorized Specialty Diagnoses / Procedures Referred By Susannah pate Referred To Contact [facility] Diagnoses Bilateral hand numbness Procedures EMG(NEURO/NI) NERVE CONDUCTION STUDIES 9-[place] [address] [place] [address] [facility] [place] [address] [place] [address] Referral ID Status Reason Start Date Expiration Date Visits Requested Visits Authorized [id number] Authorized Auto-Generat ed Referral 07/15/2023 07/14/2024 1 1 [facility] Summary Purpose Family History No Family History Records FoundNo Family History Records FoundNo Family History Records FoundNo Family History Records Found Advance Directives No Advanced Directives Records FoundNo Advanced Directives Records FoundNo Advanced Directives Records FoundNo Advanced Directives Records Found Reason for Referral Specialty Diagnoses / Procedures Referred By Contac t Referred To Contact Neurosurgery Diagnoses Right arm numbness Left arm numbness Tarlov cyst Procedures CONSULT TO NEUROSURGERY OFFICE/OUTPATIENT [facility] 60 MINUTES Stephanie Mae MD [address] [place] [address] Referral ID Status Reason Start Date Expiration Date Visits Requested Visits Authorized [id number] Authorized PCP Requested Referral 06/01/2023 05/31/2024 1 1 Specialty Diagnoses / Procedures Referred By Contac t Referred To Contact Neurology Diagnoses Bilateral hand numbness Procedures CONSULT TO NEUROLOGY OFFICE/OUTPATIENT [facility] 60 MINUTES Fabian Tovar APRN.CNP [address] [place] [address] Referral ID Status Reason Start Date Expiration Date Visits Requested Visits Authorized [id number] Authorized PCP Requested Referral 06/29/2023 06/28/2024 1 1 Specialty Diagnoses / Procedures Referred By Contac t Referred To Contact [facility] [place] Diagnoses Chronic daily headache Fibromyalgia Procedures [facility]SULT TO [facility] OFFICE/OUTPATIENT [facility] MDM 60 MINUTES Stephanie Mae MD [address] [place] [address] Referral ID Status Reason Start Date Expiration Date Visits Requested Visits Authorized [id number] Pending Review PCP Requested Referral 07/31/2023 07/30/2024 1 1 Specialty Diagnoses / Procedures Referred By Contac t Referred To Contact Diagnoses Seizure disorder (HCC) Posterior neck pain Chronic daily headache Procedures CONSULT TO HEADACHE CLINIC OFFICE/OUTPATIENT [facility] MDM 60 MINUTES Stephanie Mae MD [address] [place] [address] Referral ID Status Reason Start Date Expiration Date Visits Requested Visits Authorized [id number] Authorized PCP Requested Referral 07/31/2023 07/30/2024 1 1 Additional Source Comments INFORMATION SOURCE (unrecogn ized section and content) DATE CREATED AUTHOR 09/22/2018 [facility] DATE CREATED AUTHOR AUTHOR'S ORGANIZ ATION 08/27/2022 [facility] dical Specialist DATE CREATED AUTHOR AUTHOR'S ORGANIZ ATION 08/01/2023 [facility] DATE CREATED AUTHOR AUTHOR'S ORGANIZ ATION 09/09/2023 [facility] dical Specialists EPIC Care Teams (unrecognized sec tion and content) Lean Sensei Relationship Specialty Start Date End Date Derick Royal MD [address] [place] [address] PCP - [employer] 04/13/20 Derick Royal MD [address] [place] [address] PCP - General Family Medicine 08/28/22 Lean Sensei Relationship Specialty Start Date End Date Derick Royal MD [address] [place] [address] (Fax) PCP - [employer] 04/13/20 Derick Royal MD [address] [place] [address] PCP - General Family Medicine 08/28/22 Lean Sensei Relationship Specialty Start Date End Date Derick Royal MD [address] [place] [address] (Fax) PCP - General Family Medicine 02/02/13 Lane Roberts DO [address] [place] [address] Referring Orthopedics 02/26/18 Keven Quick MD [address] [place] [address] Referring Neurology 12/14/20 Lean Sensei Relationship Specialty Start Date End Date Derick Royal MD [address] [place] [address] PCP - General Family Medicine 02/02/13 Lane Roberts DO [address] [place] [address] Referring Orthopedics 02/26/18 Keven Quick MD [address] [place] [address] Referring Neurology 12/14/20 Le[employer] Sense[employer] Relationship Specialty Start Date End Date Derick Royal MD [address] [place] [address] (Fax) PCP - General Family Medicine 02/02/13 Lane Roberts DO [address] [place] [address] Referring Orthopedics 02/26/18 Keven Quick MD [address] [place] [address] Referring Neurology 12/14/20 Lean Sensei Relationship Specialty Start Date End Date Derick Royal MD [address] [place] [address] (Fax) PCP - General Family Medicine 02/02/13 Lane Roberts DO [address] [place] [address] Referring Orthopedics 02/26/18 Keven Quick MD [address] [place] [address] Referring Neurology 12/14/20 Lean Sensei Relationship Specialty Start Date End Date Derick Royal MD [address] [place] [address] (Fax) PCP - General Family Medicine 02/02/13 Lane Roberts DO [address] [place] [address] Referring Orthopedics 02/26/18 Keven Quick MD [address] [place] [address] Referring Neurology 12/14/20 Lean Sensei Relationship Specialty Start Date End Date Derick Royal MD [address] [place] [address] (Fax) PCP - General Family Medicine 02/02/13 Lane Roberts DO [address] [place] [address] Referring Orthopedics 02/26/18 Keven Quick MD [address] [place] [address] Referring Neurology 12/14/20 Lean Sensei Relationship Specialty Start Date End Date Derick Royal MD [address] [place] [address] PCP - General Family Medicine 02/02/13 Lane Roberts DO [address] [place] [address] Referring Orthopedics 02/26/18 Keven Quick MD [address] [place] [address] Referring Neurology 12/14/20 Lean Sensei Relationship Specialty Start Date End Date Derick Royal MD [address] [place] [address] (Fax) PCP - General Family Medicine 02/02/13 Lane Roberts DO [address] [place] [address] Referring Orthopedics 02/26/18 Keven Quick MD [address] [place] [address] Referring Neurology 12/14/20 Reason for Visit (unrecogniz ed section and content) Reason Comments Hypertension Hyperlipidemia Diabetes Reason Comments Established Patient neck Reason Comments New Patient Evaluation Reason Comments Results Reason Comments EMG Report Reason Comments Consult HAND AND ARMS NUMBNE SS (BILATERAL) Specialty Diagnoses / Procedures Referred By Contsera t Referred To Contact Neurology Diagnoses Bilateral hand numbness Procedures CONSULT TO NEUROLOGY OFFICE/OUTPATIENT NEW HIGH MDM 60 MINUTES Fabian Tovar, PICK UP AND DELIVERY DRIVER.[employer]VANCED [employer]ACTICE REGISTERED NURSE [address] [place] [address] Referral ID Status Reason Start Date Expiration Date V isits Requested Visits Authorized [id number] Closed PCP Requested Referral 06/29/2023 06/28/2024 1 1 Reason Comments Establish Care Neck/ head pain Source Comments (unrecognize d section and content) In the event this informatio n is protected by the Federal Confidentiality of Alcohol and Drug Abuse Patient Records regulations: The Federal rules restrict any use of the information to criminally investigate or prosecute any alcohol or drug abuse patient.[facility] the event this information is protected by the Federal Confidentiality of Alcohol and Drug Abuse Patient Records regulations: The Federal rules restrict any use of the information to criminally investigate or prosecute any alcohol or drug abuse patient.[facility] Hospital[facility] the event this information is protected by the Federal Confidentiality of Alcohol and Drug Abuse Patient Records regulations: The Federal rules restrict any use of the information to criminally investigate or prosecute any alcohol or drug abuse patient.[facility] Hospital[facility] the event this information is protected by the Federal Confidentiality of Alcohol and Drug Abuse Patient Records regulations: The Federal rules restrict any use of the information to criminally investigate or prosecute any alcohol or drug abuse patient.[facility] Hospital[facility] the event this information is protected by the Federal Confidentiality of Alcohol and Drug Abuse Patient Records regulations: The Federal rules restrict any use of the information to criminally investigate or prosecute any alcohol or drug abuse patient.[facility] Hospital[facility] the event this information is protected by the Federal Confidentiality of Alcohol and Drug Abuse Patient Records regulations: The Federal rules restrict any use of the information to criminally investigate or prosecute any alcohol or drug abuse patient.[facility] Hospital[facility] the event this information is protected by the Federal Confidentiality of Alcohol and Drug Abuse Patient Records regulations: The Federal rules restrict any use of the information to criminally investigate or prosecute any alcohol or drug abuse patient.[facility] Hospital[facility] the event this information is protected by the Federal Confidentiality of Alcohol and Drug Abuse Patient Records regulations: The Federal rules restrict any use of the information to criminally investigate or prosecute any alcohol or drug abuse patient.[facility] FOR RECORDS PERTAINING TO PATIENTS WHO ARE OR HAVE BEEN ENROLLED IN A CHEMICAL DEPENDENCY/SUBSTANCEABUSE PROGRAM, SOME INFORMATION MAY BE OMITTED. This clinical summary was aggregated from multiple sources. Caution should be exercised in using it in the provision of clinical care. This summary normalizes information from multiple sources, and as a consequence, information in this document may materially change the coding, format and clinical context of patient data. In addition, data may be omitted in some cases. CLINICAL DECISIONS SHOULD BE BASED ON THE PRIMARY CLINICAL RECORDS. [facility] [employer] [facility]. provides no warranty or guarantee of the accuracy or completeness of information in this document.
--- NOTE | 2023-09-10 18:01 | PM.HP ---
HPI H&P: HPI History of Present Illness Chief complaint: HIP PAIN hypothermia confusion rhabomyolysis Narrative: Patient is a 63 y.o white female with past medical history of seizure disorder, Non-insulin dep type 2 diabetes, HTN, HLD, who presented to the ER after patient's daughter found her on the bathroom floor. Per ER note, she had been lying there about 17 hours . Patient was found to be hypothermic on arrival of 94 degrees. She was also confused and was not oriented to place. ER findings: WBC's 13.5, sodium 133, Cr 1.56, BUN 49, glucose 227, lactate normal at 1.0, AST 227, [place] [address], normal trop and proBNP, tox screen positive for TCA's, Benzos. CT scans of the pelvis/head/c-spine were all withing normal range, chest X-ray showed no acute process; patient was given fluid boluses, bear hugger applied and temp was up to 97 on admission exam. Normal BP and was maintain oxygen saturations 98% on Room air. On admission exam she says she cannot remember what happened, boyfriend at bedside states she was probably down for about 9:30-10pm to 1pm today. Patient uncertain about LOC, or head trauma. She notes she has not had a seizure in months and they only occur at night time. She drives a car still. She also has been having epigastric pain and RUQ pain: recent RUQ us showed fatty infiltrate (done at [facility] on patient's phone). She also has been having dry mouth. Opioid HPI Opioid Management Most Recent Opioid Data: Last Pain Scale 6 09/10/23 13:58 Last Pain Assessment 09/10/23 18:15 Last ORT Total Score 0 09/10/23 17:59 Last ORT Risk Category Low Risk 09/10/23 17:59 Ur Phencyclidine Scrn Negative (NEGATIVE) 09/10/23 15:50 Review of Systems ROS Status of ROS unobtainable due to medical condition [facility] Medical History Hyperlipidemia ?E78.5 - Hyperlipidemia, unspecified (ICD-10) HTN (hypertension) ?I10 - Essential (primary) hypertension (ICD-10) T2DM (type 2 diabetes mellitus) ?E11.9 - Type 2 diabetes mellitus without complications (ICD-10) Seizure disorder ?G40.909 - Epilepsy, unspecified, not intractable, without status epilepticus (ICD-10) Meds Home Medications and Allergies Home Medications ?Medication ?Instructions ?Recorded ?Confirmed ?Type alprazolam 1 mg tablet 1 mg PO BID 09/10/23 09/10/23 History amitriptyline 150 mg tablet 150 mg PO DAILY 09/10/23 09/10/23 History baclofen 20 mg tablet 20 mg PO TID 09/10/23 09/10/23 History dapagliflozin propanediol 10 mg 10 mg PO DAILY 09/10/23 09/10/23 History tablet estradiol 1 mg/gram (0.1 %) 1 mg transdermal DAILY 09/10/23 09/10/23 History transdermal gel packet glipizide 10 mg tablet 10 mg PO BID 09/10/23 09/10/23 History losartan 100 mg tablet 100 mg PO DAILY 09/10/23 09/10/23 History metformin 1,000 mg tablet 1,000 mg PO BID 09/10/23 09/10/23 History metoprolol succinate 50 mg 50 mg PO BID 09/10/23 09/10/23 History tablet,extended release 24 hr nabumetone 500 mg tablet 500 mg PO BID 09/10/23 09/10/23 History rosuvastatin 10 mg tablet 10 mg PO DAILY 09/10/23 09/10/23 History spironolactone 25 mg tablet 25 mg PO BID 09/10/23 09/10/23 History tizanidine 4 mg tablet 4 mg PO TID PRN muscle spasticity 09/10/23 09/10/23 History topiramate 100 mg tablet (Topamax) 100 mg PO BID 09/10/23 09/10/23 History Allergies Allergy/AdvReac Type Severity Reaction Status Date / Time adhesive tape Allergy Severe Verified 09/10/23 16:25 aspirin Allergy Severe Verified 09/10/23 16:25 carbamazepine [From Tegretol] Allergy Severe Verified 09/10/23 16:27 diphenhydramine Allergy Severe Verified 09/10/23 16:25 [From Benadryl] ibuprofen Allergy Severe Verified 09/10/23 16:25 lamotrigine [From Lamictal] Allergy Severe Verified 09/10/23 16:25 latex Allergy Severe Verified 09/10/23 16:27 levetiracetam [From [facility]] Allergy Severe Verified 09/10/23 16:25 Penicillins Allergy Severe Verified 09/10/23 16:27 Sulfa (Sulfonamide Allergy Severe Verified 09/10/23 16:27 Antibiotics) Exam Narrative Exam Narrative: General: Patient is alert, and oriented to person, place and time, but will occasionally repeat herself Skin: abrasions over knees Head: atraumatic, acephalic Eyes: PERRLA, no nystagmus present, conjunctiva clear, no scleral icterus Ears: normal Tympanic Membrane, normal gross auditory acuity Nose: symmetric, no discharge, no maxillary or frontal sinus tenderness Mouth/Throat: no erythema, exudate, or tonsillar enlargement, no dentition, dry mucus membranes Neck: no masses palpated, normal thyroid, no JVD or audible carotid bruits Heart: Normal rate and rhythm, no murmurs/rubs/gallops Lungs: no audible wheezes, crackles and normal breath sounds all lung mohan Abdomen: Normal audible bowel sounds, no distension, No palpable masses, no organomegaly, pain with palpation in RUQ Musculoskeletal: no swelling bilateral lower extremities, but pain in the lateral left hip and femur with decreased sensation of the left leg Neuro: CN II-X grossly intact Constitutional Vital Signs, click to edit/add: Last Vital Signs Temp 97.9 F 09/10/23 16:47 Pulse 111 H 09/10/23 16:20 Resp 22 H 09/10/23 16:20 BP 121/85 09/10/23 16:40 Pulse Ox 96 09/10/23 16:20 O2 Del Method Room Air 09/10/23 13:22 Results Labs Labs: Short CBC 09/10/23 Range/Units 14:16 WBC 13.5 H (4.0-11.0) 10^3/uL Hgb 13.5 (12.0-16.0) g/dL Hct 41.7 (36.0-48.0) % Plt Count 173 (150-450) 10^3/uL BMP 09/10/23 13:49 Sodium 133 L Potassium 5.0 Chloride 100 Carbon Dioxide 17.8 L BUN 49.0 H Creatinine 1.56 H Glucose 227 H Calcium 9.1 Cardiac Enzymes 09/10/23 Range/Units 13:49 Total Creatine Kinase 79273 H* (26-192) U/L Liver Function 09/10/23 Range/Units 13:49 Total Bilirubin 0.5 (0.2-1.0) mg/dL AST 227 H (15-37) U/L ALT 119 H (14-59) U/L Alkaline Phosphatase 270 H (46-116) U/L Albumin 3.3 L (3.4-5.0) g/dL Urine 09/10/23 Range/Units 15:50 Urine Color Yellow (YELLOW) Urine Clarity Clear (CLEAR) Urine pH 5.5 (5.0-9.0) Ur Specific [place] 1.020 (1.005-1.025) Urine Protein 30 A (NEG/TRACE) mg/dL Urine Glucose (UA) >=1000 A (NEGATIVE) mg/dL ABG ABG results: 09/10/23 14:16 VBG pH 7.321 L VBG pCO2 31.3 L Assessment and Plan Assessment and Plan (1) Rhabdomyolysis: Assessment and Plan: ck level significantly elevated with liver involvement and electrolyte abnormalities including hyponatremia and hypermagnesia. Continue to push fluids and recheck CMP, CK at 1999. Hold statin Qualifiers: Encounter type: initial encounter Rhabdomyolysis type: traumatic Qualified Code(s): T79.6XXA - Traumatic ischemia of muscle, initial encounter (2) Acute metabolic encephalopathy: Assessment and Plan: polypharmacy vs infection vs seizure vs hypothermia; hold sedative medications and treat other problems (3) Metabolic acidosis: Assessment and Plan: IV fluid, recheck cmp; less likely DKA, sliding scale insulin (consider insulin drip if GAP and acidosis not improving with IVF) (4) LYDIA (acute kidney injury): Assessment and Plan: Cr. 1.56, do not have a baseline, IVF; will check renal ultrasound as blood in urine (5) Transaminitis: Assessment and Plan: 227/119 with alk phos 270, check RUQ ultrasound. Can be due to rhabdo, monitor, acute hepatitis panel ordered. (6) Hypothermia: Assessment and Plan: related to medications, metabolic acidosis, less likely infection with normal lactate, normal UA and chest X-ray, will check viral panel. Qualifiers: Encounter type: initial encounter Qualified Code(s): T68.XXXA - Hypothermia, initial encounter (7) Hyperlipidemia: Assessment and Plan: hold statin Qualifiers: Hyperlipidemia type: unspecified Qualified Code(s): E78.5 - Hyperlipidemia, unspecified (8) HTN (hypertension): Assessment and Plan: continue metoprolol Qualifiers: Hypertension type: primary hypertension Qualified Code(s): I10 - Essential (primary) hypertension (9) T2DM (type 2 diabetes mellitus): Assessment and Plan: SSI, hold oral meds Qualifiers: Diabetes mellitus complication status: with other specified complication Diabetes mellitus detention insulin use: without detention use Qualified Code(s): E11.69 - Type 2 diabetes mellitus with other specified complication (10) Seizure disorder: Assessment and Plan: will place in seizure precautions, ativan IV PRN, and will place back on Topamax and PO ATivan. (11) Left leg pain: Assessment and Plan: will check X-ray femur Plan Patient is a full code Heparin for DVT prophylaxis Patient is inpatient status and will require 2-3 days of necessary hospital care to treat her high risk conditions Critical Care TIME 60 minutes Urinary Catheter Management Urinary Catheter Management Straight: Cath placed during this visit: yes Urethral indwelling: No Insertion date: 09/10/23 Insertion time: 15:55
[2023-09-10] MEDS: LACTATED RINGER'S SOLUTION 1,000 ML 200 ML IV (18:17)
--- NOTE | 2023-09-10 18:27 | PC.NURSE ---
174 pt admitted to icu 272. bedside report obtained. pt assisted to bed, pt unable to move hips. pt pleasant, follows commands. pt poor historian, does not recall what happened last night, was last seen by sig other at 2129 and he stated she was her usual self. pt has multiple scattered abraisions to knees, feet and face. pt stated she has a history or seizures that they only happen at night and last one she remembers was 2 weeks ago. pt stated she has been getting worked up for stomach pain and nausea. neuro check completed, LLE weaker than RLE, is unable to pull toes toward her. pt stated this is new, sig other confirms pt walks independently and goes upstairs to her bedroom. seizure pads applied to 4 siderails, oriented to call light. bed alarm on.
--- NOTE | 2023-09-10 19:20 | XR_ITS ---
The [address] [address] Patient Name: JENNIFER BURGOS MRN: [id number] date: 1960 Sex: F Assigned Patient Location: ICU Current Patient Location: ICU Accession/Order Number: [id number] Exam Date: 09/10/2023 19:35 Report Date: 09/10/2023 20:55 At the request of: GRACIELA SOSA Procedure: XR femur LT 2V EXAM: XR femur LT 2V HISTORY: The patient is a 63-year-old female, fall, left leg pain COMPARISON: None. XR/XR femur LT 2V IMPRESSION: No fractures or cortical discontinuities are seen throughout the length of the left femur. The left hip joint is grossly maintained. Electronically authenticated by: SERVANDO SOLORZANO Date: 09/10/2023 20:55
[2023-09-10 20:23] LABS: Alanine Aminotransferase 167 U/L (14-59); Albumin Globulin Ratio 0.8; Albumin Level 3.4 g/dL (3.4-5.0); Alkaline Phosphatase 282 U/L (46-116); Anion Gap 20.4; Aspartate Amino Transferase 373 U/L (15-37); BUN Creatinine Ratio 27.2; Bilirubin Total 0.8 mg/dL (0.2-1.0); Calcium 9.2 mg/dL (8.5-10.1); Carbon Dioxide 17.3 mmol/L (21.0-32.0); Chloride 99 mmol/L (98-107); Estimated GFR (African America 34 (>=60); Estimated GFR (Non-African Ame 28 (>=60); Globulin 4.4 g/dL; Glucose 273 mg/dL (74-106); Potassium 4.7 mmol/L (3.5-5.1); Sodium 132 mmol/L (136-145); Total Protein 7.8 g/dL (6.4-8.2)
[2023-09-10 20:33] LABS: Troponin I High Sensitivity 10.8 pg/mL (4.0-51.3)
[2023-09-10 20:34] LABS: Creatine Kinase 15953 U/L (26-192)
--- NOTE | 2023-09-10 21:09 | PC.NURSE ---
2000 Assessment completed. Patient able to answer orientation questions, had difficulty stating after giving current month, date and year. Patient kept repeating current date until she was able to state her own date. Impulsive with some actions and seems to get stuck with repeating certain words or thoughts before being able to continue to articulate her thoughts. Also gets distracted easily with activity in the room. Patient not exhibiting signs of pain as she is resting with pillow under left hip and left leg. Patient states left leg is numb from hip down and states she is not able to feel any touch to her leg. Pedal pulse present in bilateral legs. Left foot is slightly cooler than right foot with left tip of toes more pink than rest of her flesh of her foot. Patient has full mobility and feeling to right leg and foot.
[2023-09-10] MEDS: HEPARIN SODIUM (PORCINE) 5,000 UNIT/ML VIAL 5000 UNIT SUBQ (22:39)
[2023-09-10] MEDS: ALPRAZOLAM 1 MG TABLET PO (22:39)
[2023-09-10] MEDS: TOPIRAMATE 100 MG TABLET 200 MG PO (22:40)
[2023-09-10] MEDS: AMITRIPTYLINE HCL 50 MG TABLET 150 MG PO (22:41)
[2023-09-10] MEDS: INSULIN ASPART 300 UNIT/3 ML PEN SUBQ (22:50)
[2023-09-10 22:52] LABS: Glucometer 264 mg/dL (74-106)
[2023-09-10] MEDS: FENTANYL CITRATE/PF 100 MCG/2 ML VIAL 25 MCG IV (22:55)
[2023-09-10] MEDS: 0.9 % SODIUM CHLORIDE 1,000 ML 200 ML IV (22:55)
--- NOTE | 2023-09-10 23:15 | PC.NURSE ---
[place] inserted and emptied for 750 ml of dark sandro urine with brown sediment noted in tubing of large amount.
[2023-09-11] VITALS (27 sets, daily range): BP systolic 115–126; BP diastolic 67–87; PULSE 98–122; TEMP 36.9–37.2; O2SAT 92–99
[2023-09-11] MEDS: FENTANYL CITRATE/PF 100 MCG/2 ML VIAL 25 MCG IV (04:04)
[2023-09-11] MEDS: 0.9 % SODIUM CHLORIDE 1,000 ML 200 ML IV ×2 (04:10→08:17)
[2023-09-11 05:41] LABS: Basophils Percent Auto 0.2 % (0.2-2.0); Hematocrit 39.3 % (36.0-48.0); Hemoglobin 12.5 g/dL (12.0-16.0); Immature Granulocytes Abs Auto 0.04 10^3/uL (0.00-0.03); Immature Granulocytes Pct Auto 0.3 % (0.0-0.5); Lymphocytes Absolute Auto 0.9 10^3/uL (1.2-3.8); Lymphocytes Percent Auto 6.5 % (20.5-60.0); Mean Corpuscular HGB Conc 31.8 g/dL (29.9-35.2); Mean Corpuscular Hemoglobin 29.3 pg (26.7-34.0); Mean Corpuscular Volume 92.3 fL (81.0-99.0); Mean Platelet Volume 9.3 fL (9.5-13.5); Monocytes Absolute Auto 0.8 10^3/uL (0.3-0.8); Monocytes Percent Auto 5.8 % (1.7-12.0); Neutrophils Absolute Auto 12.3 10^3/uL (1.4-6.5); Neutrophils Percent Auto 87.2 % (43.0-75.0); Platelet Count 205 10^3/uL (150-450); Red Blood Count 4.26 10^6/uL (4.20-5.40); Red Cell Distribution Width 13.4 % (11.0-15.0); White Blood Count 14.1 10^3/uL (4.0-11.0)
[2023-09-11 06:02] LABS: Estimated Average Glucose 140 mg/dL; Glycohemoglobin A1C 6.5 % (4.5-6.2)
[2023-09-11 06:05] LABS: Alanine Aminotransferase 170 U/L (14-59); Albumin Globulin Ratio 0.7; Albumin Level 2.7 g/dL (3.4-5.0); Alkaline Phosphatase 229 U/L (46-116); Aspartate Amino Transferase 376 U/L (15-37); BUN Creatinine Ratio 32.3; Bilirubin Total 0.5 mg/dL (0.2-1.0); Calcium 8.5 mg/dL (8.5-10.1); Carbon Dioxide 18.3 mmol/L (21.0-32.0); Chloride 101 mmol/L (98-107); Estimated GFR (African America 39 (>=60); Estimated GFR (Non-African Ame 32 (>=60); Globulin 3.8 g/dL; Glucose 182 mg/dL (74-106); Potassium 4.3 mmol/L (3.5-5.1); Sodium 133 mmol/L (136-145); Total Protein 6.5 g/dL (6.4-8.2)
[2023-09-11 06:34] LABS: Creatine Kinase 14517 U/L (26-192)
[2023-09-11 07:24] LABS: Glucometer 144 mg/dL (74-106)
[2023-09-11] MEDS: ALPRAZOLAM 1 MG TABLET PO ×2 (08:16→20:26)
[2023-09-11] MEDS: HEPARIN SODIUM (PORCINE) 5,000 UNIT/ML VIAL 5000 UNIT SUBQ ×2 (08:16→20:25)
[2023-09-11] MEDS: ATORVASTATIN CALCIUM 40 MG TABLET PO (10:08)
--- NOTE | 2023-09-11 10:35 | SWNOTE1 ---
Important Message from Medicare reviewed and discussed with patient. Pt. verbalized understanding and signed the form. Original given to patient and copy placed in patient?s chart. SW spoke with nursing prior to meeting with pt. Pt is still having weakness with left arm. SW met with pt to discuss dc needs. Pt lives at home by herself. Her daughter, son, and boyfriend help as needed. Pt is independent at home, does not use any DME. Pt voiced her hip hurts from falling at home, she is not sure what happened. Pt still drives as well. Pt is waiting for doctor to come round and see her. She spoke with daughter on phone briefly while SW was in room. Pt is not sure of needs at this time for discharge. Pt voiced she was hungry. SW offered to assist with ordering breakfast. Pt was able to draw lines around what she wanted for breakfast with her right hand and read the menu. Pt did make several lines with a pen on the menu to indicate what she wanted, but made extra lines and underlined all the juices in the section for drinks, SW had to clarify what drink she wanted since they were all marked. SW reviewed what she bryant lines around for breakfast and placed order for her. Pt is alert and oriented; person, place, time.
--- NOTE | 2023-09-11 11:10 | MR_ITS ---
[address] [address] Patient Name: JENNIFER BURGOS MRN: [id number] date: 1960 Sex: F Assigned Patient Location: ICU Current Patient Location: ICU Accession/Order Number: [id number] Exam Date: 09/11/2023 11:50 Report Date: 09/11/2023 13:29 At the request of: SHAIKH AUDELIA Procedure: MR head/brain wo con MRI BRAIN WITHOUT CONTRAST, 09/11/2023. HISTORY: Found down. Left-sided weakness. Confusion. COMPARISON: MRI brain with and without contrast, 05/01/2016. CT head, 09/10/2023. TECHNIQUE: Multiplanar, multisequence MRI imaging of the brain without contrast. FINDINGS: Paranasal sinuses clear. Mastoid air cells clear. Extracranial soft tissue structures are unremarkable. Mild generalized brain atrophy. Mild chronic microvascular ischemic disease. No extra-axial fluid collection. No mass effect. No shift of midline. No diffusion restriction. No acute ischemic infarction. The T2 gradient images show no hemorrhagic lesions. No masses. MR/MR head/brain wo con IMPRESSION: 1. Stable MRI of the brain. 2. Mild brain atrophy and chronic microvascular ischemic changes. 3. No acute infarction. No masses. Electronically authenticated by: CONRAD CASTANEDA Date: 09/11/2023 13:29
--- NOTE | 2023-09-11 11:57 | PM.IMPN1 ---
Progress Note: A&P Assessment and Plan (1) DKA, type 2: Assessment and Plan: euglycemic DKA - likely because patient is on Farxiga. Start patient on Insulin Infusion as per DKA protocol. BMP q4, accu checks q1H. Will need D5-0.45 because of his blood glucose. Needs close monitoring in ICU for DKA. Qualifiers: Diabetes mellitus complication detail: without coma Qualified Code(s): E11.10 - Type 2 diabetes mellitus with ketoacidosis without coma (2) Rhabdomyolysis: Assessment and Plan: From laying in floor for 10 hours. CK slowly trending down. Needs aggressive IV hydration Qualifiers: Encounter type: initial encounter Rhabdomyolysis type: traumatic Qualified Code(s): T79.6XXA - Traumatic ischemia of muscle, initial encounter (3) Acute metabolic encephalopathy: Assessment and Plan: From dehydration, DKA. Back to her baseline. Answering questions appropriately. (4) Syncope: Assessment and Plan: Unclear etiology. This could be due to seizure resulting in her passing as patient has no memory of it. It is also quite possible that she had syncope and confusion from dehydration/DKA. Neurology consulted. C/w topamax, xanax. Very unlikely that this is cardiac syncope. Qualifiers: Syncope type: unspecified Qualified Code(s): R55 - Syncope and collapse (5) Metabolic acidosis: Assessment and Plan: Due yo DKA. Started on insulin drip as per protocol (6) Left leg weakness: Assessment and Plan: Left leg weakness, this is new. This has been present atleast since last evening. Patient has flacid paralysis in Left LE, alongwith numbness. She is not withdrawing to painful stimulus and will not even wiggle her toes. No back pain. No injury noted on Pelvic CT/hip XR. No acute finding on CTH. MRI ordered to r/o ischemic event. (7) LYDIA (acute kidney injury): Assessment and Plan: Normal renal function at baseline. On IVF. LYDIA due to rhabdo/DKA and dehydration (8) Seizure disorder: Assessment and Plan: Hx of seizure disorder, recently started on topamax. Last seizure was within a month. New diagnosis and topamax was recently increased. I suspect she had a seizure that resulted in her passing out as she has no memory of it. (9) Transaminitis: Assessment and Plan: Likely from dehydration. Hold statin. US - no sig abnormality noted. Monitor. (10) Hypothermia: Assessment and Plan: Likely from dehydration. Normal TSH. normal temp now. Qualifiers: Encounter type: initial encounter Qualified Code(s): T68.XXXA - Hypothermia, initial encounter (11) Hyperlipidemia: Assessment and Plan: Hold statin due to transaminitis. Qualifiers: Hyperlipidemia type: unspecified Qualified Code(s): E78.5 - Hyperlipidemia, unspecified (12) HTN (hypertension): Assessment and Plan: C/w home medications except for aldactone, losartan due to LYDIA Qualifiers: Hypertension type: primary hypertension Qualified Code(s): I10 - Essential (primary) hypertension (13) T2DM (type 2 diabetes mellitus): Assessment and Plan: In DKA - oral drugs on hold. On Insulin drip fro DKA. Qualifiers: Diabetes mellitus complication status: with other specified complication Diabetes mellitus intermediate frame tender insulin use: without intermediate frame tender use Qualified Code(s): E11.69 - Type 2 diabetes mellitus with other specified complication (14) Left leg pain: Assessment and Plan: Initially was complaining of leg pain. She has decreased sensation in left leg but was noted to have flacid paralysis on left side. No other neurological weakness/numbness. Order MRI brain No fx/dislocation on XR Hip/CT pelvis. No back pain Plan Patient critically ill with multiple active and potentially life threatening conditions including DKA, suspected CVA along with rhabdomyolysis/LYDIA. Critical care time over 50 minutes spent in patients evaluated, review of her medical records, assessment and plan/co ordination of care. Exam Constitutional Vital Signs, click to edit/add: Last Vital Signs Temp 98.4 F 09/11/23 07:33 Pulse 122 H 09/11/23 11:26 Resp 16 09/11/23 07:33 BP 115/80 09/11/23 00:01 Pulse Ox 96 09/11/23 11:26 O2 Del Method Room Air 09/10/23 17:59 Internal Medicine - PN: Obj Da Labs Labs: Laboratory Results - last 24 hr 09/10/23 09/10/23 09/10/23 13:49 14:15 14:16 WBC 13.5 H RBC 4.60 Hgb 13.5 Hct 41.7 MCV 90.7 MCH 29.3 MCHC 32.4 RDW 13.2 Plt Count 173 MPV 10.8 Neut % (Auto) 89.3 H Lymph % (Auto) 5.2 L [place] % (Auto) 4.9 Eos % (Auto) 0.1 L Baso % (Auto) 0.1 L Neut # (Auto) 12.0 H Lymph # (Auto) 0.7 L [place] # (Auto) 0.7 Eos # (Auto) 0.0 Baso # (Auto) 0.0 Abs Immat Gran (auto) 0.05 H Imm/Tot Granulo (auto) 0.4 PT 11.1 INR 1.05 VBG pH 7.321 L VBG pCO2 31.3 L Sodium 133 L Potassium 5.0 Chloride 100 Carbon Dioxide 17.8 L Anion Gap 20.2 BUN 49.0 H Creatinine 1.56 H Est GFR ( Amer) 41 L Est GFR (Non-Af Amer) 34 L BUN/Creatinine Ratio 31.4 Glucose 227 H Estimat Average Glucose Hemoglobin A1c Lactate 1.0 Calcium 9.1 Magnesium 2.9 H Total Bilirubin 0.5 AST 227 H ALT 119 H Alkaline Phosphatase 270 H Ammonia <10 L Total Creatine Kinase 51810 H* Troponin I High Sens 8.6 NT-Pro-B Natriuret Pep 361.0 Total Protein 7.7 Albumin 3.3 L Globulin 4.4 Albumin/Globulin Ratio 0.8 Procalcitonin 2.01 H TSH 0.887 Urine Color Urine Clarity Urine pH Ur Specific [place] Urine Protein Urine Glucose (UA) Urine Ketones Urine Occult Blood Urine Nitrite Urine Bilirubin Urine Urobilinogen Ur Leukocyte Esterase Urine RBC Urine WBC Ur Squamous Epith Cells Urine Crystals Urine Bacteria Urine Casts Urine Mucus Urine Opiates Screen Ur Buprenorphine Scrn Ur Oxycodone Screen Urine Methadone Screen Ur Barbiturates Screen U Tricyclic Antidepress Ur Phencyclidine Scrn Ur Amphetamines Screen U Methamphetamines Scrn U Benzodiazepines Scrn Urine Cocaine Screen U Cannabinoids Screen Ethanol Quant <3 Acetone, Qual POC Glucose 219 H 09/10/23 09/10/23 09/10/23 15:50 17:24 20:01 WBC RBC Hgb Hct MCV MCH MCHC RDW Plt Count MPV Neut % (Auto) Lymph % (Auto) [place] % (Auto) Eos % (Auto) Baso % (Auto) Neut # (Auto) Lymph # (Auto) [place] # (Auto) Eos # (Auto) Baso # (Auto) Abs Immat Gran (auto) Imm/Tot Granulo (auto) PT INR VBG pH VBG pCO2 Sodium 132 L Potassium 4.7 Chloride 99 Carbon Dioxide 17.3 L Anion Gap 20.4 BUN 50.0 H Creatinine 1.84 H Est GFR ( Amer) 34 L Est GFR (Non-Af Amer) 28 L BUN/Creatinine Ratio 27.2 Glucose 273 H Estimat Average Glucose Hemoglobin A1c Lactate Calcium 9.2 Magnesium Total Bilirubin 0.8 AST 373 H ALT 167 H Alkaline Phosphatase 282 H Ammonia Total Creatine Kinase 93218 H* Troponin I High Sens 10.8 NT-Pro-B Natriuret Pep Total Protein 7.8 Albumin 3.4 Globulin 4.4 Albumin/Globulin Ratio 0.8 Procalcitonin TSH Urine Color Yellow Urine Clarity Clear Urine pH 5.5 Ur Specific [place] 1.020 Urine Protein 30 A Urine Glucose (UA) >=1000 A Urine Ketones Trace A Urine Occult Blood Large A Urine Nitrite Negative Urine Bilirubin Negative Urine Urobilinogen 0.2 Ur Leukocyte Esterase Negative Urine RBC 5-10 A Urine WBC 0-2 A Ur Squamous Epith Cells None seen Urine Crystals None seen Urine Bacteria Trace A Urine Casts None seen Urine Mucus None seen Urine Opiates Screen Negative Ur Buprenorphine Scrn Negative Ur Oxycodone Screen Negative Urine Methadone Screen Negative Ur Barbiturates Screen Negative U Tricyclic Antidepress Positive A Ur Phencyclidine Scrn Negative Ur Amphetamines Screen Negative U Methamphetamines Scrn Negative U Benzodiazepines Scrn Positive A Urine Cocaine Screen Negative U Cannabinoids Screen Negative Ethanol Quant Acetone, Qual Small A POC Glucose 09/10/23 09/11/23 09/11/23 22:50 04:02 07:18 WBC 14.1 H RBC 4.26 Hgb 12.5 Hct 39.3 MCV 92.3 MCH 29.3 MCHC 31.8 RDW 13.4 Plt Count 205 MPV 9.3 L Neut % (Auto) 87.2 H Lymph % (Auto) 6.5 L [place] % (Auto) 5.8 Eos % (Auto) 0.0 L Baso % (Auto) 0.2 Neut # (Auto) 12.3 H Lymph # (Auto) 0.9 L [place] # (Auto) 0.8 Eos # (Auto) 0.0 Baso # (Auto) 0.0 Abs Immat Gran (auto) 0.04 H Imm/Tot Granulo (auto) 0.3 PT INR VBG pH VBG pCO2 Sodium 133 L Potassium 4.3 Chloride 101 Carbon Dioxide 18.3 L Anion Gap 18.0 BUN 52.0 H Creatinine 1.61 H Est GFR ( Amer) 39 L Est GFR (Non-Af Amer) 32 L BUN/Creatinine Ratio 32.3 Glucose 182 H Estimat Average Glucose 140 Hemoglobin A1c 6.5 H Lactate Calcium 8.5 Magnesium Total Bilirubin 0.5 AST 376 H ALT 170 H Alkaline Phosphatase 229 H Ammonia Total Creatine Kinase 10016 H* Troponin I High Sens NT-Pro-B Natriuret Pep Total Protein 6.5 Albumin 2.7 L Globulin 3.8 Albumin/Globulin Ratio 0.7 Procalcitonin TSH Urine Color Urine Clarity Urine pH Ur Specific [place] Urine Protein Urine Glucose (UA) Urine Ketones Urine Occult Blood Urine Nitrite Urine Bilirubin Urine Urobilinogen Ur Leukocyte Esterase Urine RBC Urine WBC Ur Squamous Epith Cells Urine Crystals Urine Bacteria Urine Casts Urine Mucus Urine Opiates Screen Ur Buprenorphine Scrn Ur Oxycodone Screen Urine Methadone Screen Ur Barbiturates Screen U Tricyclic Antidepress Ur Phencyclidine Scrn Ur Amphetamines Screen U Methamphetamines Scrn U Benzodiazepines Scrn Urine Cocaine Screen U Cannabinoids Screen Ethanol Quant Acetone, Qual POC Glucose 264 H 144 H Urinary Catheter Management Urinary Catheter Management Straight: Cath placed during this visit: yes Urethral indwelling: No Insertion date: 09/10/23 Insertion time: 22:15
--- NOTE | 2023-09-11 12:05 | CM.NOTE ---
Rounds made with Dr. Medina, no discharge today. Pt have minimal urinary outpt as reported per RN, urine dark with sediment. [place] intact. Pt L lower extremity flaccid, pt states this is new finding for her. Pt also having difficulty sitting up. MRI being ordered, changing IV fluids and starting insulin drip.
[2023-09-11] MEDS: INSULIN REGULAR IN 0.9 % NACL 100 UNIT/100 ML PLAST..BAG 7.69000000000000039 UNIT IV (12:52)
[2023-09-11] MEDS: DEXTROSE 5 %-0.45 % SOD CHLORD 1,000 ML 200 ML IV ×2 (12:52→17:28)
[2023-09-11] MEDS: 0.9 % SODIUM CHLORIDE 500 ML 1000 ML IV (13:44)
[2023-09-11] MEDS: BACLOFEN 10 MG TABLET 20 MG PO (13:44)
[2023-09-11] MEDS: POTASSIUM CHLORIDE 10 MEQ ER TABLET 40 MEQ PO (13:44)
[2023-09-11] MEDS: METOPROLOL SUCCINATE 25 MG TAB.ER.24H 75 MG PO (13:44)
--- NOTE | 2023-09-11 14:28 | SWNOTE1 ---
SW received message from OT and pt will benefit from rehab at this point due to not being able to use left leg. SW stopped back in to speak with pt, physical therapy was working with pt at this time. SW to come back. Pt's son was in room as well, btu was leaving. SW spoke to him and he stated his niece works at a facility and to talk with his sister in regards to where.
[2023-09-11 15:09] LABS: Anion Gap 16.1; BUN Creatinine Ratio 27.3; Calcium 7.3 mg/dL (8.5-10.1); Carbon Dioxide 18.8 mmol/L (21.0-32.0); Chloride 106 mmol/L (98-107); Estimated GFR (African America 31 (>=60); Estimated GFR (Non-African Ame 26 (>=60); Glucose 252 mg/dL (74-106); Potassium 3.9 mmol/L (3.5-5.1); Sodium 137 mmol/L (136-145)
--- NOTE | 2023-09-11 15:16 | SWNOTE1 ---
SW spoke to pt about therapy recommending rehab for a short time. Pt is in agreement. Pt would like [facility] or [facility]. CRISTY spoke to Ariela at [facility] and they do not take [facility] medicare. CRISTY spoke to Karina at [facility] and they do not have any open beds. CRISTY went back in and spoke to pt. Pt ronan got her daughter and grand-daughter on the phone. They would like [facility], SW is not sure they take insurance. If they don't they will do [facility]. SW called [facility] and they do not have a contract with her insurance. CRISTY called Ade at [facility] and they do not have openings.
--- NOTE | 2023-09-11 15:28 | SWNOTE1 ---
SW went back in and spoke with pt and pt had her daughter on the phone. SW let them know [facility], [place], [facility], and [facility] does take her insurance. Pt and family would like [facility]. CRISTY called [facility] while in room and spoke to Janette and they do have openings and will review. Referral sent to [facility]. Referral included face sheet, ED note, H&P, provider notes, case management report, wound consult, nursing notes, diagnostic imaging, med list, and PT/OT notes.
[2023-09-11 15:47] LABS: Glucometer 262 mg/dL (74-106)
--- NOTE | 2023-09-11 16:27 | SWNOTE1 ---
[facility] is able to accept, they are waiting for benefits to come back and will start precert. SW took packet to the ICU. Pt is a precert.
[2023-09-11 16:39] LABS: Glucometer 239 mg/dL (74-106)
--- NOTE | 2023-09-11 17:00 | US_ITS ---
The [address] [address] Patient Name: JENNIFER BURGOS MRN: [id number] date: 1960 Sex: F Assigned Patient Location: ICU Current Patient Location: ICU Accession/Order Number: [id number] Exam Date: 09/11/2023 08:15 Report Date: 09/11/2023 10:58 At the request of: JULIET MARTINES Procedure: US abdomen complete EXAMINATION: US abdomen complete HISTORY: Hematuria after fall. Elevated liver enz COMPARISON: CT pelvis without contrast 09/10/2023 TECHNIQUE: High resolution sonographic examination of the abdomen was performed. FINDINGS: LIVER: Heterogeneous echotexture with areas of increased echogenicity suspected to represent fatty infiltration. Duplex Doppler demonstrates normal waveform and flow within the portal vein, 39 cm/s. BILIARY: Normal. Normal appearing gallbladder and biliary tree. PANCREAS: No visible mass, abnormal atrophy, or ductal dilatation. SPLEEN: Normal. Normal size and echotexture. KIDNEYS: Normal. No mass or obstruction. AORTA/VASCULAR: Normal. No aneurysm. OTHER: Negative. US/US abdomen complete IMPRESSION: 1. Suspect fatty infiltration. Cirrhosis and infiltrating mass are felt less likely. Consider CT abdomen without and with IV contrast for further evaluation of the liver. Electronically authenticated by: JUDSON STAPLETON Date: 09/11/2023 10:58
[2023-09-11 18:02] LABS: Anion Gap 17.6; BUN Creatinine Ratio 24.8; Calcium 8.4 mg/dL (8.5-10.1); Carbon Dioxide 17.3 mmol/L (21.0-32.0); Chloride 102 mmol/L (98-107); Estimated GFR (African America 27 (>=60); Estimated GFR (Non-African Ame 22 (>=60); Glucose 108 mg/dL (74-106); Potassium 3.9 mmol/L (3.5-5.1); Sodium 133 mmol/L (136-145)
[2023-09-11 18:36] LABS: Glucometer 182 mg/dL (74-106)
[2023-09-11] MEDS: SODIUM CHLORIDE 0.45 % 1,000 ML 100 ML IV (19:30)
[2023-09-11] MEDS: OXYCODONE HCL 5 MG TABLET PO (20:26)
[2023-09-11] MEDS: DOCUSATE SODIUM 100 MG CAPSULE PO (20:27)
[2023-09-11 20:43] LABS: Glucometer 92 mg/dL (74-106)
--- NOTE | 2023-09-11 21:35 | PC.NURSE ---
2030 Patient's daughters want to comb tangles from patient's hair. Patient asks to sit at side of bed for her hair to be combed. Patient assisted to side of bed with 2 RN assists. Tolerated well. Positioned with feet flat on floor. Patient able to balance self at this time. After 15 minutes of dangling at side of bed, patient had to be instructed to readjust her balance as she was leaning to her right side and not pushing off the bed with her right arm, patient able to correct her posture. After 25 minutes sitting at side of bed, patient fatigued, hair is combed and braided by her daughter. Patient assisted to lay in bed and be positioned with pillow under left hip and left leg for level of comfort. Patient also pulled up in bed for proper positioning. Patient dozing after being positioned in bed. Patient aroused to tell her family good bye for the night at 2100.
--- NOTE | 2023-09-11 21:43 | RESP.RT ---
placed patient on home CPAP with 2 lpm bleed in
[2023-09-11] MEDS: TOPIRAMATE 100 MG TABLET 200 MG PO (22:05)
[2023-09-11] MEDS: AMITRIPTYLINE HCL 50 MG TABLET 150 MG PO (22:05)
--- NOTE | 2023-09-11 22:12 | PC.NURSE ---
Patient very drowsy at this time. Patient took her po xanax earlier and has been resting comfortably with her CPAP in place. I could not keep her awake without constant stimulation. She was able to wake up enough to drink water and swallow her pills. Vital signs stable and Patient is resting comfortably with cpap on. Will continue to monitor.
[2023-09-11 22:31] LABS: Glucometer 139 mg/dL (74-106)
[2023-09-11 23:28] LABS: Glucometer 123 mg/dL (74-106)
[2023-09-12] VITALS (28 sets, daily range): BP systolic 105–129; BP diastolic 52–81; PULSE 77–113; TEMP 36.6–37; O2SAT 69–99
--- NOTE | 2023-09-12 00:21 | PC.NURSE ---
Patient more somnolent and arouses with call of name but does not remain awake to be able to follow commands. Vitals remain stable and will continue to monitor her condition.
[2023-09-12 04:25] LABS: Basophils Percent Auto 0.1 % (0.2-2.0); Hematocrit 36.9 % (36.0-48.0); Hemoglobin 11.2 g/dL (12.0-16.0); Immature Granulocytes Abs Auto 0.03 10^3/uL (0.00-0.03); Immature Granulocytes Pct Auto 0.3 % (0.0-0.5); Lymphocytes Absolute Auto 1.1 10^3/uL (1.2-3.8); Lymphocytes Percent Auto 9.5 % (20.5-60.0); Mean Corpuscular HGB Conc 30.4 g/dL (29.9-35.2); Mean Corpuscular Hemoglobin 29.2 pg (26.7-34.0); Mean Corpuscular Volume 96.3 fL (81.0-99.0); Mean Platelet Volume 9.2 fL (9.5-13.5); Monocytes Absolute Auto 0.7 10^3/uL (0.3-0.8); Neutrophils Absolute Auto 9.5 10^3/uL (1.4-6.5); Neutrophils Percent Auto 84.1 % (43.0-75.0); Platelet Count 123 10^3/uL (150-450); Red Blood Count 3.83 10^6/uL (4.20-5.40); Red Cell Distribution Width 13.7 % (11.0-15.0); White Blood Count 11.3 10^3/uL (4.0-11.0)
[2023-09-12 04:49] LABS: Alanine Aminotransferase 149 U/L (14-59); Albumin Globulin Ratio 0.6; Albumin Level 2.1 g/dL (3.4-5.0); Alkaline Phosphatase 205 U/L (46-116); Aspartate Amino Transferase 224 U/L (15-37); BUN Creatinine Ratio 24.1; Bilirubin Total 0.5 mg/dL (0.2-1.0); Calcium 8.5 mg/dL (8.5-10.1); Carbon Dioxide 17.3 mmol/L (21.0-32.0); Chloride 103 mmol/L (98-107); Estimated GFR (African America 25 (>=60); Estimated GFR (Non-African Ame 20 (>=60); Globulin 3.8 g/dL; Glucose 142 mg/dL (74-106); Magnesium 2.5 mg/dL (1.8-2.4); Potassium 5.3 mmol/L (3.5-5.1); Sodium 130 mmol/L (136-145); Total Protein 5.9 g/dL (6.4-8.2)
[2023-09-12 04:51] LABS: Creatine Kinase 6420 U/L (26-192)
[2023-09-12] MEDS: SODIUM CHLORIDE 0.45 % 1,000 ML 100 ML IV (04:58)
[2023-09-12 05:04] LABS: Glucometer 127 mg/dL (74-106)
--- NOTE | 2023-09-12 08:00 | PC.NURSE ---
Neurovascular checks completed. Skin is cold to touch and the color is pale with cyanosis to toes. Capillary refill is >3 seconds with no palpable pulses. Pulses doppled, bilateral dosalsis pedis pulse not present. Strength and ROM is poor, left foot drop is noted. Patient is able to feel slight touch but unable to tell a difference from sharp and dull touches at this time. Physician to be updated and will continue to monitor.
[2023-09-12 08:12] LABS: HBsAg Screen Negative (Negative); HCV Ab Non Reactive (Non Reactive); Hep A Ab, IgM Negative (Negative); Hep B Core Ab, IgM Negative (Negative)
[2023-09-12 08:40] LABS: Glucometer 127 mg/dL (74-106)
[2023-09-12] MEDS: METOPROLOL SUCCINATE 25 MG TAB.ER.24H 75 MG PO (09:53)
[2023-09-12] MEDS: ALPRAZOLAM 1 MG TABLET PO (09:53)
[2023-09-12] MEDS: SODIUM BICARBONATE IV ×2 (09:54→20:01)
[2023-09-12] MEDS: SODIUM CHLORIDE 0.45% IV ×2 (09:54→20:01)
[2023-09-12] MEDS: HEPARIN SODIUM (PORCINE) 5,000 UNIT/ML VIAL 5000 UNIT SUBQ (09:54)
--- NOTE | 2023-09-12 09:58 | PT.DAILY ---
Physical Therapy Daily Note PT Daily Note/Assess Start: 09/12/23 09:53 Freq: Status: Active Protocol: Document 09/12/23 09:53 HARISH (Rec: 09/12/23 09:58 HARISH [id number]) Physical Therapy Daily Note/Assessment Time In/Time Out Time In 09:17 Time Out 09:45 Pain In Pain N/A Pain Out Pain N/A Subjective Subjective Pt supine upon arrival. Agreeable to PT. L hip pain currently. Reports being unable to move L LE. Therapeutic Exercise Time Therapeutic Exercise Minutes (minutes) 5 Therapeutic Exercise Units 0 Therapeutic Exercise Treatment Therapeutic Exercise Treatment AA abd slides and heel slides in supine 5x ea. AA seated LAQ and marches for bilat LE 5x2 ea. Active R AP 10x Therapeutic Activity Time Therapeutic Activity Minutes (minutes) 20 Therapeutic Activity Units 2 Therapeutic Activity Treatment Bed Mobility Ability Maximum Assist Chair Transfer Ability Maximum Assist,2 Person Assist Therapeutic Activity Comments Pt transfers from supine to sit with MaxA to advance LEs then upper body to sit at EOB. Once sitting EOB pt is able to scoot herself closer to the edge. Pt attempts lateral scoots but is unable. Pt is able to perform retro scoots with increased time. Seated ex complete as noted in ther ex tab. Pt is able to maintains static and dynamic seated activity without outside support but needs bilat UE placed on bed to maintain balance. Pt sit>stand MaxA+2 but needs to instantly sit due to apprehension. Sit>stand again with stand pivot to BS chair with MaxA+2 with [employer] needing to block L knee from buckling. Pt remains in BS chair with call light in reach and her boyfriend present. Nursing aware pt is in chair. Total Physical Therapy Time Total Therapy Minutes 25 Total Physical Therapy Units 2 Summary Daily Note Summary More cooperative on this date. Cont to needs heavy assistance with all transfers. L hip pain increased with activity. Would recommend SNF at this point.
--- NOTE | 2023-09-12 11:23 | P.IMPN_ITS ---
Progress Note: A&P Assessment and Plan (1) DKA, type 2: Assessment and Plan: Gap closed. Off of insulin drip. On basal/bolus insulin. Qualifiers: Diabetes mellitus complication detail: without coma Qualified Code(s): E11.10 - Type 2 diabetes mellitus with ketoacidosis without coma (2) Rhabdomyolysis: Assessment and Plan: CK improving. C/w IVF. Qualifiers: Encounter type: initial encounter Rhabdomyolysis type: traumatic Qualified Code(s): T79.6XXA - Traumatic ischemia of muscle, initial encounter (3) Acute metabolic encephalopathy: Assessment and Plan: Back to baseline. Monitor. MRI - no stroke. (4) Syncope: Assessment and Plan: Unclear etiology. This could be due to seizure resulting in her passing as patient has no memory of it. It is also quite possible that she had syncope and confusion from dehydration/DKA. Neurology consulted. C/w topamax, xanax. Very unlikely that this is cardiac syncope. Qualifiers: Syncope type: unspecified Qualified Code(s): R55 - Syncope and collapse (5) Metabolic acidosis: Assessment and Plan: Persistent - likely because of worsening LYDIA - started on bicarb infusion along PO bicarb. Recheck BMP at 4 pm (6) Left leg weakness: Assessment and Plan: Left leg weakness, this is new. This has been present atleast since 08/14/23. Patient has flacid paralysis in Left LE, alongwith numbness. Numbness improved but persistent. MRI brain - no stroke. No back pain. No injury noted on Pelvic CT/hip XR. Will order MRI cervical/thoracic and lumbar spine to r/o spinal pathology after d/w neurology. (7) LYDIA (acute kidney injury): Assessment and Plan: She has Normal renal function at baseline. On IVF. LYDIA due to rhabdo/DKA and dehydration Progressive decline in renal function - consult nephrology. (8) Seizure disorder: Assessment and Plan: Hx of seizure disorder, recently started on topamax. Last seizure was within a month. New diagnosis and topamax was recently increased. I suspect she had a seizure that resulted in her passing out as she has no memory of it. (9) Transaminitis: Assessment and Plan: Likely from dehydration. Hold statin. US - no sig abnormality noted. Monitor. Improving (10) Hyperlipidemia: Assessment and Plan: hold statin Qualifiers: Hyperlipidemia type: unspecified Qualified Code(s): E78.5 - Hyperlipidemia, unspecified (11) HTN (hypertension): Assessment and Plan: C/w home medications except for aldactone, losartan due to LYDIA Qualifiers: Hypertension type: primary hypertension Qualified Code(s): I10 - Essential (primary) hypertension (12) T2DM (type 2 diabetes mellitus): Assessment and Plan: In DKA - oral drugs on hold. on basal/bolus insulin Qualifiers: Diabetes mellitus complication status: with other specified complication Diabetes mellitus roasterman insulin use: without prison use Qualified Code(s): E11.69 - Type 2 diabetes mellitus with other specified complication (13) Left leg pain: Assessment and Plan: Initially was complaining of leg pain. She has decreased sensation in left leg but was noted to have flacid paralysis on left side. No other neurological weakness/numbness. MRI brain - no stroke No fx/dislocation on XR Hip/CT pelvis. No back pain Internal Medicine - PN: Subj Subjective Interval history: Seen and examined. No overnight events. Patient's renal function declining with poor UO and increasing serum cr. Patient continues to have left LE weakness/numbness. Numbness has improved from before. Exam Constitutional Vital Signs, click to edit/add: Last Vital Signs Temp 98.1 F 09/12/23 07:56 Pulse 102 H 09/12/23 11:00 Resp 24 H 09/12/23 10:00 BP 113/52 09/12/23 07:56 Pulse Ox 91 L 09/12/23 10:00 O2 Del Method CPAP 09/12/23 07:00 O2 Flow Rate 2 09/12/23 07:00 Documenting provider has reviewed patient's vital signs: yes Common normals: no apparent distress and oriented x3 General appearance: cooperative Respiratory Common normals: normal respiratory effort and clear to auscultation bilaterally Effort & inspection: able to speak in complete sentences Auscultation: clear to auscultation bilaterally Cardio Common normals: regular rate, S1 normal heart sound and S2 normal heart sound Rate: regular rate Heart sounds: S1 normal and S2 normal GI Common normals: Normal to inspection, nondistended, normoactive bowel sounds present, soft to palpation, non-tender and no hepatosplenomegaly Palpation: soft and no hepatosplenomegaly Extremity Common normals: no clubbing, cyanosis or edema Neuro Common normals: oriented x3 Gait (neuro): unable to assess gait Motor exam: strength abnormal left lower extremity 0 / 5 Other: decreased sensation left LE Psych Common normals: mental status grossly normal, denies hallucinations, denies homicidal ideation and denies suicidal ideation Internal Medicine - PN: Obj Da Labs Labs: Laboratory Results - last 24 hr 09/10/23 09/11/23 09/11/23 20:01 14:52 15:39 WBC RBC Hgb Hct MCV MCH MCHC RDW Plt Count MPV Neut % (Auto) Lymph % (Auto) [place] % (Auto) Eos % (Auto) Baso % (Auto) Neut # (Auto) Lymph # (Auto) [place] # (Auto) Eos # (Auto) Baso # (Auto) Abs Immat Gran (auto) Imm/Tot Granulo (auto) Sodium 137 Potassium 3.9 Chloride 106 Carbon Dioxide 18.8 L Anion Gap 16.1 BUN 54.0 H Creatinine 1.98 H Est GFR ( Amer) 31 L Est GFR (Non-Af Amer) 26 L BUN/Creatinine Ratio 27.3 Glucose 252 H Calcium 7.3 L Magnesium Total Bilirubin AST ALT Alkaline Phosphatase Total Creatine Kinase Total Protein Albumin Globulin Albumin/Globulin Ratio Hepatitis A IgM Ab Negative Hep Bs Antigen Negative Hep B Core IgM Ab Negative Hepatitis C Antibody Non reactive Hepatitis C Interp Comment POC Glucose 262 H 09/11/23 09/11/23 09/11/23 16:36 17:47 18:25 WBC RBC Hgb Hct MCV MCH MCHC RDW Plt Count MPV Neut % (Auto) Lymph % (Auto) [place] % (Auto) Eos % (Auto) Baso % (Auto) Neut # (Auto) Lymph # (Auto) [place] # (Auto) Eos # (Auto) Baso # (Auto) Abs Immat Gran (auto) Imm/Tot Granulo (auto) Sodium 133 L Potassium 3.9 Chloride 102 Carbon Dioxide 17.3 L Anion Gap 17.6 BUN 56.0 H Creatinine 2.26 H Est GFR ( Amer) 27 L Est GFR (Non-Af Amer) 22 L BUN/Creatinine Ratio 24.8 Glucose 108 H Calcium 8.4 L Magnesium Total Bilirubin AST ALT Alkaline Phosphatase Total Creatine Kinase Total Protein Albumin Globulin Albumin/Globulin Ratio Hepatitis A IgM Ab Hep Bs Antigen Hep B Core IgM Ab Hepatitis C Antibody Hepatitis C Interp POC Glucose 239 H 182 H 05/31/24 05/31/24 05/31/24 20:41 22:26 23:26 WBC RBC Hgb Hct MCV MCH MCHC RDW Plt Count MPV Neut % (Auto) Lymph % (Auto) [place] % (Auto) Eos % (Auto) Baso % (Auto) Neut # (Auto) Lymph # (Auto) [place] # (Auto) Eos # (Auto) Baso # (Auto) Abs Immat Gran (auto) Imm/Tot Granulo (auto) Sodium Potassium Chloride Carbon Dioxide Anion Gap BUN Creatinine Est GFR ( Amer) Est GFR (Non-Af Amer) BUN/Creatinine Ratio Glucose Calcium Magnesium Total Bilirubin AST ALT Alkaline Phosphatase Total Creatine Kinase Total Protein Albumin Globulin Albumin/Globulin Ratio Hepatitis A IgM Ab Hep Bs Antigen Hep B Core IgM Ab Hepatitis C Antibody Hepatitis C Interp POC Glucose 92 139 H 123 H 09/12/23 09/12/23 09/12/23 04:10 05:02 08:39 WBC 11.3 H RBC 3.83 L Hgb 11.2 L Hct 36.9 MCV 96.3 MCH 29.2 MCHC 30.4 RDW 13.7 Plt Count 123 L MPV 9.2 L Neut % (Auto) 84.1 H Lymph % (Auto) 9.5 L [place] % (Auto) 6.0 Eos % (Auto) 0.0 L Baso % (Auto) 0.1 L Neut # (Auto) 9.5 H Lymph # (Auto) 1.1 L [place] # (Auto) 0.7 Eos # (Auto) 0.0 Baso # (Auto) 0.0 Abs Immat Gran (auto) 0.03 Imm/Tot Granulo (auto) 0.3 Sodium 130 L Potassium 5.3 H Chloride 103 Carbon Dioxide 17.3 L Anion Gap 15.0 BUN 58.0 H Creatinine 2.41 H Est GFR ( Amer) 25 L Est GFR (Non-Af Amer) 20 L BUN/Creatinine Ratio 24.1 Glucose 142 H Calcium 8.5 Magnesium 2.5 H Total Bilirubin 0.5 AST 224 H ALT 149 H Alkaline Phosphatase 205 H Total Creatine Kinase 6420 H* Total Protein 5.9 L Albumin 2.1 L Globulin 3.8 Albumin/Globulin Ratio 0.6 Hepatitis A IgM Ab Hep Bs Antigen Hep B Core IgM Ab Hepatitis C Antibody Hepatitis C Interp POC Glucose 127 H 127 H Urinary Catheter Management Urinary Catheter Management Straight: Cath placed during this visit: yes Urethral indwelling: No Insertion date: 09/10/23 Insertion time: 22:15
[2023-09-12 14:40] LABS: Glucometer 107 mg/dL (74-106)
[2023-09-12] MEDS: SODIUM BICARBONATE 325 MG TABLET 650 MG PO (16:10)
[2023-09-12 16:51] LABS: Anion Gap 16.4; BUN Creatinine Ratio 20.3; Calcium 8.4 mg/dL (8.5-10.1); Carbon Dioxide 17.9 mmol/L (21.0-32.0); Chloride 102 mmol/L (98-107); Estimated GFR (African America 19 (>=60); Estimated GFR (Non-African Ame 16 (>=60); Glucose 122 mg/dL (74-106); Potassium 4.3 mmol/L (3.5-5.1); Sodium 132 mmol/L (136-145)
[2023-09-12 20:21] LABS: Glucometer 99 mg/dL (74-106)
[2023-09-12] MEDS: OXYCODONE HCL 5 MG TABLET PO (20:59)
--- NOTE | 2023-09-12 21:51 | PC.NURSE ---
2102 Patient transferred via [employer] to [facility]. Patient boyfriend, Jeremie to follow and has patient personal items and Home CPAP machine and supplies. Report given to ground crew. Patient transferred with cardiac monitoring device, BP and pulse oximeter. Patient continues on Sodium Bicarbonate drip at 100 ml/hr. 2139 Report called to [facility], [facility], Jeni PRETTY accepting report for Patient going to room A924.
--- NOTE | 2023-09-18 11:18 | P.DS_ITS ---
DS: Providers Provider Date of admission: 09/10/23 17:45 Primary care physician: ERIBERTO ROYAL Admitting clinician: Shaikh Adam Attending physician on admission: Shaikh Adam Consults: 09/10/23 Consult to Dietitian Routine Reason for consultation: poor appetite, weight loss 09/11/23 08:41 Occupational Therapy Eval and Treat Routine Reason for consultation: Ambulatory dysfunction/weakness Physical Therapy Eval and Treat Routine Reason for consultation: Ambulatory dysfunction/weakness 09/11/23 13:14 Consult to TeleNeurology Routine Reason for consultation: Suspected seizure and new onset left LE weakness 09/12/23 11:22 Consult to Telenephrology Routine Reason for consultation: LYDIA Attending physician on discharge: Shaikh Adam Discharging clinician: Shaikh Adam Anticipated date of discharge: 09/12/23 DS: Diagnosis Discharge Diagnosis (1) DKA, type 2: Qualifiers: Diabetes mellitus complication detail: without coma Qualified Code(s): E11.10 - Type 2 diabetes mellitus with ketoacidosis without coma (2) Rhabdomyolysis: Qualifiers: Encounter type: initial encounter Rhabdomyolysis type: traumatic Qualified Code(s): T79.6XXA - Traumatic ischemia of muscle, initial encounter (3) Acute metabolic encephalopathy: (4) Syncope: Qualifiers: Syncope type: unspecified Qualified Code(s): R55 - Syncope and collapse (5) Metabolic acidosis: (6) Left leg weakness: (7) LYDIA (acute kidney injury): (8) Seizure disorder: (9) Transaminitis: (10) Hyperlipidemia: Qualifiers: Hyperlipidemia type: unspecified Qualified Code(s): E78.5 - Hyperlipidemia, unspecified (11) HTN (hypertension): Qualifiers: Hypertension type: primary hypertension Qualified Code(s): I10 - Essential (primary) hypertension (12) T2DM (type 2 diabetes mellitus): Qualifiers: Diabetes mellitus longterm insulin use: without tank terminal gauger use Diabetes mellitus complication status: with other specified complication Qualified Code(s): E11.69 - Type 2 diabetes mellitus with other specified complication (13) Left leg pain: DS: Summary Hospital Course Hospital Course: 63 y o female patient presented to ED after she passed out at home and laid on the ground for hours before her family checked in on her and was brought over to ED afterwards. Patient had recently been diaognosed with seizures and was started on topamax for it. Her work up was c/w Rhabdomyolysis, euglycemic DKA and LYDIA. She was treated with IVF for CK with improvement in CK. She was treated with IV insulin and her DKA resolved. She continued to have poor UO, worsening serum Cr for which nephrology was consulted but she was accepted for transfer before she could be seen by Nephrology. Patient was noted to have left LE paresis upon admission along with numbness. MRI brain showed no evidence of stroke. Neurology was consulted and recommended transfer to [facility] for EEG monitoring and MRI cervical/thoracolumbar spine to r/o spinal pathology for her left LE weakness. Patient later on was trasnferred to [facility] Time Spent with Patient Time attestation: Total time spent providing and/or coordinating discharge services: Exam Constitutional Vital Signs, click to edit/add: Last Vital Signs Temp 98.6 F 09/12/23 19:31 Pulse 108 H 09/12/23 20:00 Resp 19 09/12/23 20:00 BP 129/74 09/12/23 19:31 Pulse Ox 94 L 09/12/23 20:00 O2 Del Method Room Air 09/12/23 14:45 O2 Flow Rate 2 09/12/23 07:00 Discharge Plan Discharge Disposition: [facility] Condition: Good Discharge Date/Time: 09/12/23 21:03 Discharge location: [facility]
== END 2023-09-12 21:03 | disposition short-term general hospital (02) | DRG 682 ==
LOC: ER 16:54 → ICU 17:49
PROVIDERS: Internal Medicine; Nurse Practitioner; Physician Assistant; Admitting Provider Family Medicine; Emergency Provider Emergency Medicine Emergency Medical Services; PCP Family Medicine; Visit Provider Family Medicine
DX: N17.9 Acute kidney failure, unspecified (principal); E11.10 Type 2 diabetes mellitus with ketoacidosis without coma; G93.41 Metabolic encephalopathy; E87.1 Hypo-osmolality and hyponatremia; T79.6XXA Traumatic ischemia of muscle, initial encounter; W19.XXXA Unspecified fall, initial encounter; E83.41 Hypermagnesemia; R74.01 Elevation of levels of liver transaminase levels; R68.0 Hypothermia, not associated with low environmental temperature; E78.5 Hyperlipidemia, unspecified; I10 Essential (primary) hypertension; Z79.84 Long term (current) use of oral hypoglycemic drugs; Z79.899 Other long term (current) drug therapy; S80.212A Abrasion, left knee, initial encounter; S80.211A Abrasion, right knee, initial encounter; G40.909 Epilepsy, unspecified, not intractable, without status epilepticus; M79.605 Pain in left leg; E86.0 Dehydration; R55 Syncope and collapse; R53.1 Weakness; G83.14 Monoplegia of lower limb affecting left nondominant side; F41.9 Anxiety disorder, unspecified; F32.9 Major depressive disorder, single episode, unspecified; M79.7 Fibromyalgia; Z90.710 Acquired absence of both cervix and uterus; F17.210 Nicotine dependence, cigarettes, uncomplicated
CPT/HCPCS: 36415; 51701; 51702; 70450; 70551; 71045; 72125; 72192; 73552; 76700; 80048; 80053; 80074; 80307; 80320; 81001; 82009; 82140; 82550; 82800; 82948; 83036; 83605; 83735; 83880; 84145; 84443; 84484; 85025; 85610; 87040; 93005; 94761; 96361; 96365; 96366; 96372; 96375; 96376; 97110; 97161; 97165; 97530; 99285; C1887